=== PATIENT | female | born 1940 | race Caucasian/White ===

== ENCOUNTER 2016-11-24 14:37 | Inpatient (IN) | payer MEDICARE, MEDICAID ==
[~2016-11-24] VITALS: Ht 157.5 cm; Wt 62.6 kg
[~2016-11-24 14:37] MED LIST: ACET-2067 PO; ALEN70TA45 PO; ALLO100T PO; ASPI81TA2 PO; ATOR10TA PO; CHOL100044 PO; MIRT15TA7 PO; OMEP20CA10 PO; ONDA4TAB5 PO; QUET25TA PO; SENN8.6T6 PO; SERT25TA5 PO; VITA400C24 PO
[2016-11-24] MEDS ORDERED: IPRATROPIUM NEB FS 0.5 MG/2.5 ML AMPUL.NEB NEB ONE (15:00)
[2016-11-24] MEDS ORDERED: ALBUTEROL FS 2.5 MG/3 ML VIAL.NEB CONTNEB ONE (15:00)
[2016-11-24] MEDS ORDERED: ALBUTEROL FS 2.5 MG/3 ML VIAL.NEB ONE (15:03)
[2016-11-24] MEDS ORDERED: IPRATROPIUM NEB FS 0.5 MG/2.5 ML AMPUL.NEB ONE (15:04)
[2016-11-24 15:23] LABS: ANION GAP 14 (5-14); CALCIUM, SERUM 9.3 mg/dL (8.5-10.1); CARBON DIOXIDE 30 mmol/L (21-32); CHLORIDE 105 mmol/L (98-107); CREATININE 1.5 mg/dL (0.6-1.3); GLUCOSE 136 mg/dL (74-106); POTASSIUM 4.3 mmol/L (3.5-5.1); SODIUM SERUM 144 mmol/L (136-145); UREA NITROGEN, BLOOD 31 mg/dL (7-18)
[2016-11-24 15:26] LABS: BASOPHILS % (AUTO) 0.2 % (0.0-2.0); DIFF TOTAL % 100 %; EOSINOPHILS % (AUTO) 0.1 % (0.0-6.0); HEMATOCRIT 39 % (33-45); HEMOGLOBIN 12.9 g/dL (11.5-14.8); LYMPHOCYTES # (AUTO) 0.9 /CMM (0.8-4.8); LYMPHOCYTES % (AUTO) 10.1 % (20.0-44.0); MEAN CORPUSCULAR HEMOGLOBIN 32 PG (26.0-33.0); MEAN CORPUSCULAR HGB CONC 34 g/dl (31.0-36.0); MEAN CORPUSCULAR VOLUME 96 fL (82-100); MONOCYTES # (AUTO) 0.8 /CMM (0.1-1.30); MONOCYTES % (AUTO) 9.2 % (2.0-12.0); NEUTROPHILS # (AUTO) 7.4 /CMM (1.8-8.9); NEUTROPHILS % (AUTO) 80.4 % (43.0-81.0); PLATELET COUNT (AUTO) 211 /CMM (150-450); RED BLOOD CELL COUNT(AUTO) 4.04 MIL/uL (4.0-5.2); WHITE BLOOD COUNT (AUTO) 9.1 K/uL (4.3-11.0)
[2016-11-24 15:30] LABS: TROPONIN I < 0.017 ng/mL (0.00-0.056)
[2016-11-24 15:34] LABS: LACTIC ACID 0.7 mmol/L (0.4-2.0)
[2016-11-24 15:40] LABS: ALANINE AMINOTRANSFERASE 11 U/L (12-78); ALBUMIN 3.1 g/dL (3.4-5.0); ASPARTATE AMINOTRANSFERASE 16 U/L (15-37); BILIRUBIN,DIRECT 0.1 mg/dL (0.0-0.2); BILIRUBIN,TOTAL 0.3 mg/dL (0.2-1.0); INDIRECT BILIRUBIN 0.2 mg/dL (0.0-1.1); TOTAL PROTEIN, SERUM 6.8 g/dL (6.4-8.2)
[2016-11-24] MEDS ORDERED: IV SET PRIMARY PUMP SET 1 EA INFUS.SET MC ONE ×2 (15:59→21:12)
[2016-11-24] MEDS ORDERED: LEVOFLOXACIN 500 MG /D5W 100ML 100 ML IV ONE (15:59)
[2016-11-24] MEDS ORDERED: LEVOFLOXACIN 500 MG /D5W 100ML 500 MG/100 ML PIGGYBACK IV ONE (16:00)
[2016-11-24 18:27] VITALS: BP 163/71
[2016-11-24] MEDS ORDERED: ALBUTEROL FS 2.5 MG/3 ML VIAL.NEB NEB PRN (18:30)
[2016-11-24] MEDS ORDERED: IPRATROPIUM NEB FS 0.5 MG/2.5 ML AMPUL.NEB NEB PRN (18:30)
[2016-11-24] MEDS ORDERED: AZITHROMYCIN 500 MG in IV D5W 250 ML IV SCH ×2 (18:30→19:00)
[2016-11-24] MEDS ORDERED: ACETAMINOPHEN 325 MG TABLET PO PRN (19:00)
[2016-11-24] MEDS ORDERED: ONDANSETRON 4 MG TAB.RAPDIS PO PRN (19:30)
[2016-11-24 20:00] VITALS: BP 147/68
[2016-11-24] MEDS: ALBUTEROL FS 2.5 MG/3 ML VIAL.NEB NEB SCH (20:01)
[2016-11-24] MEDS: IPRATROPIUM NEB FS 0.5 MG/2.5 ML AMPUL.NEB NEB SCH (20:01)
[2016-11-24] MEDS: AZITHROMYCIN 500 MG in IV D5W 250 ML IV SCH (21:06)
[2016-11-24] MEDS: QUETIAPINE FUMARATE 25 MG TABLET PO SCH (21:07)
[2016-11-24] MEDS: SENNOSIDES 8.6 MG TABLET PO SCH (21:07)
[2016-11-24] MEDS: methylPREDNISolone SOD SUCC 40 MG/ML VIAL IV SCH (21:07)
[2016-11-24] MEDS: ATORVASTATIN 10 MG TABLET PO SCH (21:07)
[2016-11-25] VITALS: BP 109/61
[2016-11-25 04:00] VITALS: BP 102/59
[2016-11-25] MEDS: methylPREDNISolone SOD SUCC 40 MG/ML VIAL IV SCH ×3 (05:54→20:03)
[2016-11-25 07:09] VITALS: BP 111/62
[2016-11-25] MEDS: IPRATROPIUM NEB FS 0.5 MG/2.5 ML AMPUL.NEB NEB SCH ×4 (07:35→19:44)
[2016-11-25] MEDS: ALBUTEROL FS 2.5 MG/3 ML VIAL.NEB NEB SCH ×4 (07:52→19:44)
[2016-11-25] MEDS: CHOLECALCIFEROL 1,000 UNIT TABLET (VIT D3) PO SCH (08:03)
[2016-11-25] MEDS: VITAMIN E 400 UNIT CAPSULE PO SCH (08:03)
[2016-11-25] MEDS: ALLOPURINOL 100 MG TABLET PO SCH (08:04)
[2016-11-25] MEDS: SERTRALINE HCL 25 MG TABLET PO SCH (08:04)
[2016-11-25] MEDS: ASPIRIN 81 MG TAB.CHEW PO SCH (08:04)
[2016-11-25] MEDS: PANTOPRAZOLE 40 MG TABLET.DR PO SCH (09:13)
[2016-11-25 16:00] VITALS: BP 100/79
[2016-11-25] MEDS: MIRTAZAPINE 15 MG TABLET PO SCH (17:02)
[2016-11-25 19:00] VITALS: BP 141/97
[2016-11-25 20:00] VITALS: BP 141/97
[2016-11-25] MEDS ORDERED: IV SET PRIMARY PUMP SET 1 EA INFUS.SET MC ONE (20:03)
[2016-11-25] MEDS: AZITHROMYCIN 500 MG in IV D5W 250 ML IV SCH (20:03)
[2016-11-25] MEDS ORDERED: IV NS 0.9% 250 ML IV ONE (20:04)
[2016-11-25] MEDS ORDERED: SECONDARY IV SET 1 EA INFUS.SET MC ONE (20:04)
[2016-11-25] MEDS: SENNOSIDES 8.6 MG TABLET PO SCH (21:17)
[2016-11-25] MEDS: QUETIAPINE FUMARATE 25 MG TABLET PO SCH (21:17)
[2016-11-25] MEDS: ATORVASTATIN 10 MG TABLET PO SCH (21:17)
[2016-11-26 04:00] VITALS: BP 104/69
[2016-11-26] MEDS: methylPREDNISolone SOD SUCC 40 MG/ML VIAL IV SCH ×3 (05:00→21:26)
[2016-11-26 08:00] VITALS: BP 109/74
[2016-11-26] MEDS: ALBUTEROL FS 2.5 MG/3 ML VIAL.NEB NEB SCH ×4 (08:24→19:49)
[2016-11-26] MEDS: IPRATROPIUM NEB FS 0.5 MG/2.5 ML AMPUL.NEB NEB SCH ×4 (08:24→19:49)
[2016-11-26] MEDS: ASPIRIN 81 MG TAB.CHEW PO SCH (08:50)
[2016-11-26] MEDS: PANTOPRAZOLE 40 MG TABLET.DR PO SCH (08:50)
[2016-11-26] MEDS: ALLOPURINOL 100 MG TABLET PO SCH (08:50)
[2016-11-26] MEDS: SERTRALINE HCL 25 MG TABLET PO SCH (08:50)
[2016-11-26] MEDS: VITAMIN E 400 UNIT CAPSULE PO SCH (08:50)
[2016-11-26] MEDS: CHOLECALCIFEROL 1,000 UNIT TABLET (VIT D3) PO SCH (08:50)
[2016-11-26 12:00] VITALS: BP 110/68
[2016-11-26 16:00] VITALS: BP 110/67
[2016-11-26] MEDS: MIRTAZAPINE 15 MG TABLET PO SCH (18:56)
[2016-11-26 20:00] VITALS: BP 90/66
[2016-11-26] MEDS: AZITHROMYCIN 250 MG TABLET PO SCH (21:27)
[2016-11-26] MEDS: SENNOSIDES 8.6 MG TABLET PO SCH (21:27)
[2016-11-26] MEDS: QUETIAPINE FUMARATE 25 MG TABLET PO SCH (21:27)
[2016-11-26] MEDS: ATORVASTATIN 10 MG TABLET PO SCH (21:27)
[2016-11-27 00:24] VITALS: BP 97/68
[2016-11-27 04:17] VITALS: BP 92/63
[2016-11-27] MEDS: methylPREDNISolone SOD SUCC 40 MG/ML VIAL IV SCH ×3 (05:09→21:10)
[2016-11-27 06:57] VITALS: BP 98/68
[2016-11-27 08:00] VITALS: BP 98/68
[2016-11-27] MEDS: IPRATROPIUM NEB FS 0.5 MG/2.5 ML AMPUL.NEB NEB SCH ×4 (08:03→19:38)
[2016-11-27] MEDS: ALBUTEROL FS 2.5 MG/3 ML VIAL.NEB NEB SCH ×4 (08:03→19:38)
[2016-11-27] MEDS: PANTOPRAZOLE 40 MG TABLET.DR PO SCH (08:39)
[2016-11-27] MEDS: CHOLECALCIFEROL 1,000 UNIT TABLET (VIT D3) PO SCH (08:39)
[2016-11-27] MEDS: ASPIRIN 81 MG TAB.CHEW PO SCH (08:39)
[2016-11-27] MEDS: VITAMIN E 400 UNIT CAPSULE PO SCH (08:39)
[2016-11-27] MEDS: SERTRALINE HCL 25 MG TABLET PO SCH (08:40)
[2016-11-27] MEDS: ALLOPURINOL 100 MG TABLET PO SCH (08:40)
[2016-11-27 16:00] VITALS: BP 102/74
[2016-11-27] MEDS: MIRTAZAPINE 15 MG TABLET PO SCH (17:17)
[2016-11-27 20:00] VITALS: BP 101/77
[2016-11-27] MEDS: SENNOSIDES 8.6 MG TABLET PO SCH (21:10)
[2016-11-27] MEDS: QUETIAPINE FUMARATE 25 MG TABLET PO SCH (21:11)
[2016-11-27] MEDS: ATORVASTATIN 10 MG TABLET PO SCH (21:11)
[2016-11-27] MEDS: AZITHROMYCIN 250 MG TABLET PO SCH (21:11)
[2016-11-28] MEDS: methylPREDNISolone SOD SUCC 40 MG/ML VIAL IV SCH ×3 (05:36→20:25)
[2016-11-28 07:19] LABS: DIFF TOTAL % 100 %; HEMATOCRIT 36 % (33-45); HEMOGLOBIN 11.8 g/dL (11.5-14.8); LYMPHOCYTES # (AUTO) 1.6 /CMM (0.8-4.8); LYMPHOCYTES % (AUTO) 10.3 % (20.0-44.0); MEAN CORPUSCULAR HEMOGLOBIN 32 PG (26.0-33.0); MEAN CORPUSCULAR HGB CONC 33 g/dl (31.0-36.0); MEAN CORPUSCULAR VOLUME 96 fL (82-100); MONOCYTES # (AUTO) 0.6 /CMM (0.1-1.30); MONOCYTES % (AUTO) 3.6 % (2.0-12.0); NEUTROPHILS # (AUTO) 13.2 /CMM (1.8-8.9); NEUTROPHILS % (AUTO) 86.1 % (43.0-81.0); PLATELET COUNT (AUTO) 324 /CMM (150-450); RED BLOOD CELL COUNT(AUTO) 3.75 MIL/uL (4.0-5.2); WHITE BLOOD COUNT (AUTO) 15.3 K/uL (4.3-11.0)
[2016-11-28 07:31] LABS: ALBUMIN 2.6 g/dL (3.4-5.0); BILIRUBIN,TOTAL 0.2 mg/dL (0.2-1.0); CALCIUM, SERUM 9.2 mg/dL (8.5-10.1); CREATININE 1.5 mg/dL (0.6-1.3); POTASSIUM 4.8 mmol/L (3.5-5.1); TOTAL PROTEIN, SERUM 5.9 g/dL (6.4-8.2)
[2016-11-28] MEDS: ALBUTEROL FS 2.5 MG/3 ML VIAL.NEB NEB SCH ×4 (07:49→19:55)
[2016-11-28] MEDS: IPRATROPIUM NEB FS 0.5 MG/2.5 ML AMPUL.NEB NEB SCH ×4 (07:49→19:55)
[2016-11-28 08:00] VITALS: BP 117/77
[2016-11-28] MEDS: PANTOPRAZOLE 40 MG TABLET.DR PO SCH (08:03)
[2016-11-28] MEDS: VITAMIN E 400 UNIT CAPSULE PO SCH (08:04)
[2016-11-28] MEDS: SERTRALINE HCL 25 MG TABLET PO SCH (08:04)
[2016-11-28] MEDS: ALLOPURINOL 100 MG TABLET PO SCH (08:04)
[2016-11-28] MEDS: CHOLECALCIFEROL 1,000 UNIT TABLET (VIT D3) PO SCH (08:04)
[2016-11-28] MEDS: ASPIRIN 81 MG TAB.CHEW PO SCH (08:04)
[2016-11-28 16:00] VITALS: BP 114/77
[2016-11-28] MEDS: MIRTAZAPINE 15 MG TABLET PO SCH (17:07)
[2016-11-28 18:00] VITALS: BP 114/77
[2016-11-28 20:00] VITALS: BP 102/74
[2016-11-28] MEDS: AZITHROMYCIN 250 MG TABLET PO SCH (20:24)
[2016-11-28] MEDS: ATORVASTATIN 10 MG TABLET PO SCH (21:04)
[2016-11-28] MEDS: SENNOSIDES 8.6 MG TABLET PO SCH ×2 (21:04→22:00)
[2016-11-28] MEDS: QUETIAPINE FUMARATE 25 MG TABLET PO SCH (21:04)
[2016-11-28 22:00] VITALS: BP 102/74
[2016-11-29] MEDS: methylPREDNISolone SOD SUCC 40 MG/ML VIAL IV SCH ×2 (05:16→12:37)
[2016-11-29] MEDS: ALBUTEROL FS 2.5 MG/3 ML VIAL.NEB NEB SCH ×3 (07:24→14:53)
[2016-11-29] MEDS: IPRATROPIUM NEB FS 0.5 MG/2.5 ML AMPUL.NEB NEB SCH ×3 (07:24→14:53)
[2016-11-29 08:00] VITALS: BP 113/93
[2016-11-29] MEDS: ASPIRIN 81 MG TAB.CHEW PO SCH (08:29)
[2016-11-29] MEDS: CHOLECALCIFEROL 1,000 UNIT TABLET (VIT D3) PO SCH (08:29)
[2016-11-29] MEDS: VITAMIN E 400 UNIT CAPSULE PO SCH (08:29)
[2016-11-29] MEDS: SERTRALINE HCL 25 MG TABLET PO SCH (08:29)
[2016-11-29] MEDS: ALLOPURINOL 100 MG TABLET PO SCH (08:29)
[2016-11-29] MEDS: PANTOPRAZOLE 40 MG TABLET.DR PO SCH (08:29)
[2016-11-29 16:00] VITALS: BP 97/76
[2016-11-29] MEDS: MIRTAZAPINE 15 MG TABLET PO SCH (17:23)
[2016-11-30] MEDS ORDERED: ALENDRONATE 70 MG TABLET PO SCH (19:00)
== END 2016-11-29 19:15 | DRG 193 ==
LOC: ER 14:41 → TELE 17:05 → MED 11-27 08:53
PROVIDERS: ADMIT Internal Medicine; ATTEND Internal Medicine
DX: J18.9 Pneumonia, unspecified organism (principal); G93.40 Encephalopathy, unspecified; J96.90 Respiratory failure, unspecified, unspecified whether with hypoxia or hypercapnia; J44.1 Chronic obstructive pulmonary disease with (acute) exacerbation; R64 Cachexia; E78.5 Hyperlipidemia, unspecified; K21.9 Gastro-esophageal reflux disease without esophagitis; G30.9 Alzheimer's disease, unspecified; F02.80 Dementia in other diseases classified elsewhere, unspecified severity, without behavioral disturbance, psychotic disturbance, mood disturbance, and anxiety; I12.9 Hypertensive chronic kidney disease with stage 1 through stage 4 chronic kidney disease, or unspecified chronic kidney disease; N18.3 Chronic kidney disease, stage 3 (moderate); I25.10 Atherosclerotic heart disease of native coronary artery without angina pectoris; M81.0 Age-related osteoporosis without current pathological fracture; F32.9 Major depressive disorder, single episode, unspecified; Z87.891 Personal history of nicotine dependence; J20.9 Acute bronchitis, unspecified; F29 Unspecified psychosis not due to a substance or known physiological condition; E79.0 Hyperuricemia without signs of inflammatory arthritis and tophaceous disease
CPT/HCPCS: 36415; 71010-TC; 80048-TC; 80053-TC; 80076-TC; 83605-TC; 83880; 84484-TC; 85025-TC; 87040-TC; 87081-TC; 94799-TC; A4606; J0456; J1956; J2920; J7050; J7060; Z7610

== ENCOUNTER 2017-01-23 02:11 | Inpatient (IN) | payer MEDICARE, MEDICAID ==
[2017-01-23] VITALS (25 sets, daily range): BP systolic 89–166; BP diastolic 61–93
[~2017-01-23] VITALS: Ht 165.1 cm; Wt 69.9 kg
--- NOTE | 2017-01-23 02:15 | NUR ---
PT BIB RA AND TAKEN TO ROOM #2. PT IS AA&O X4. PT ARRIVED ON NRB MASK AT 15L. PT CAME FROM [facility]. PT IS ON THE MONITOR AND CONTINUOUS PULSE OX. DR. BERNSTEIN AT THE BEDSIDE.
[2017-01-23] MEDS ORDERED: ALBUTEROL FS 2.5 MG/3 ML VIAL.NEB CONTNEB ONE (02:30)
[2017-01-23] MEDS ORDERED: DEXAMETHASONE SOD PHOSPHATE 10 MG/ML VIAL IV ONE (02:30)
[2017-01-23] MEDS ORDERED: IPRATROPIUM NEB FS 0.5 MG/2.5 ML AMPUL.NEB NEB ONE (02:30)
[2017-01-23] MEDS ORDERED: LEVOFLOXACIN 750 MG /D5W 150ML 150 ML IV ONE ×2 (02:30→02:31)
[2017-01-23] MEDS ORDERED: DEXAMETHASONE SOD PHOSPHATE 10 MG/ML VIAL ONE (02:31)
[2017-01-23] MEDS ORDERED: IV SET PRIMARY PUMP SET 1 EA INFUS.SET MC ONE ×2 (02:31→05:26)
--- NOTE | 2017-01-23 02:39 | NUR ---
PT IS ON BIPAP WITH THE FOLLOWING SETTINGS: 15/5, RT 14, FIO2 30%
[2017-01-23 02:46] LABS: BASOPHILS % (AUTO) 0.1 % (0.0-2.0); EOSINOPHILS # (AUTO) 0.3 /CMM (0.0-0.7); EOSINOPHILS % (AUTO) 2.1 % (0.0-6.0); HEMATOCRIT 36 % (33-45); HEMOGLOBIN 11.6 g/dL (11.5-14.8); LYMPHOCYTES # (AUTO) 1.4 /CMM (0.8-4.8); MEAN CORPUSCULAR HEMOGLOBIN 31 PG (26.0-33.0); MEAN CORPUSCULAR HGB CONC 32 g/dl (31.0-36.0); MEAN CORPUSCULAR VOLUME 97 fL (82-100); MONOCYTES # (AUTO) 0.5 /CMM (0.1-1.30); MONOCYTES % (AUTO) 3.3 % (2.0-12.0); NEUTROPHILS # (AUTO) 13.8 /CMM (1.8-8.9); NEUTROPHILS % (AUTO) 85.5 % (43.0-81.0); PLATELET COUNT (AUTO) 222 /CMM (150-450); RDW COEFFICIENT OF VARIATION 13.6 (11.5-15.0); RED BLOOD CELL COUNT(AUTO) 3.73 MIL/uL (4.0-5.2); WHITE BLOOD COUNT (AUTO) 16.2 K/uL (4.3-11.0)
[2017-01-23 02:48] LABS: ABG BASE EXCESS 0.7 mmol/L; ABG OXYGEN SATURATION 93.9 % (92.0-98.5); ABG PCO2 39.7 mmHg (35.0-45.0); ABG PH 7.419 (7.350-7.450); ABG TOTAL HEMOGLOBIN 12.4 G/dL (12.0-16.0); COHb 0.5 % (0.5-1.5); MetHb 0.6 % (0.0-1.5); O2Hb 92.9 % (94.0-97.0); SITE, ABG Left Radial; VENT MODE, BG BIPAP 15/5 BR 14 30%
[2017-01-23 02:55] LABS: CALCIUM, SERUM 8.6 mg/dL (8.5-10.1); CREATININE 1.5 mg/dL (0.6-1.3); POTASSIUM 4.4 mmol/L (3.5-5.1)
[2017-01-23 03:03] LABS: INR 0.94 (0.87-1.13)
[2017-01-23 03:04] LABS: LACTIC ACID 1.4 mmol/L (0.4-2.0)
[2017-01-23] MEDS ORDERED: ALBUTEROL FS 2.5 MG/3 ML VIAL.NEB ONE (03:09)
[2017-01-23] MEDS ORDERED: IPRATROPIUM NEB FS 0.5 MG/2.5 ML AMPUL.NEB ONE (03:10)
[2017-01-23] MEDS ORDERED: VANCOMYCIN 1 GM in IV D5W 250 ML IV ONE ×2 (03:30→06:00)
[2017-01-23] MEDS ORDERED: MEROPENEM 1,000 MG in IV NS 0.9% 100 ML IV ONE (03:30)
--- NOTE | 2017-01-23 03:32 | NUR ---
ORDERS REC'D FROM DR. NORMAN.
--- NOTE | 2017-01-23 03:35 | NUR ---
PT PLACE ON BIPAP. PT IS AWAKE AND ALERT. BIPAP IS PLUGGED IN RED OUTLET, ALARMS ARE SET AND AUDIBLE WILL CONTINUE TO MONITOR Addendum: 01/23/17 at 0342 by NAMAN SPIVEY RT Amended: Links added.
--- NOTE | 2017-01-23 03:42 | NUR ---
PT APPEARS TO BE RESTING COMFORTABLY.
--- NOTE | 2017-01-23 03:42 | NUR ---
CALLING REPORT TO ICU NURSE. ENDORSING VANCO 1 GRAM AND MEROPENEM 1000MG TO BE GIVEN AFTER THE LEVOQUIN IS FINISHED INFUSING.
[2017-01-23] MEDS ORDERED: DEXTROSE 50%-WATER 50 ML DISP.SYRIN IV PRN (04:30)
[2017-01-23] MEDS ORDERED: IV NS 0.9% 1,000 ML BAG IV SCH (04:30)
--- NOTE | 2017-01-23 04:34 | NUR ---
EKG NOT DONE. EKG WAS CANCELLED.
[2017-01-23] MEDS ORDERED: ALBUTEROL FS 2.5 MG/0.5 ML VIAL.NEB NEB PRN (05:00)
[2017-01-23] MEDS ORDERED: VANCOMYCIN 1 GM VIAL ONE (05:25)
[2017-01-23] MEDS ORDERED: IV D5W 250 ML IV ONE (05:25)
[2017-01-23] MEDS ORDERED: SECONDARY IV SET 1 EA INFUS.SET MC ONE (05:26)
[2017-01-23] MEDS ORDERED: IV NS 0.9% 1,000 ML ONE (05:26)
--- NOTE | 2017-01-23 05:48 | NUR ---
ASSISTANT PARALEGAL. RECEIVED THE PT FROM ER VIA [facility]. PT AWAKE, ALERT, FOLLOW COMMANDS. . INFANT LEAD TEACHER SHOWING NSR. BIPAP ON SETTINGS 15/5, RATE 14, FIO2 30%. SAT 98%. NO ACUTE DISTRESS NOTED. IV RT AND LT HAND. 20G. IVF NS 60 ML/H. HOPB ELEVATED. TURN AND REPOSITION Q2H. WILL CONTINUE TO MONITOR VITALS.
--- NOTE | 2017-01-23 05:51 | NUR ---
STAIN MAKER. BIPAP OFF. OXYGEN 4L VIA NASAL CANNULA. SAT 97%. WILL CONTINUE TO MONITOR.
[2017-01-23] MEDS ORDERED: VANCOMYCIN 1 GM in IV D5W 250 ML IV SCH (06:00)
[2017-01-23] MEDS ORDERED: ENOXAPARIN SODIUM 30 MG/0.3 ML DISP.SYRIN SQ SCH ×2 (06:00→09:00)
[2017-01-23] MEDS ORDERED: ENOXAPARIN SODIUM 30 MG/0.3 ML DISP.SYRIN ONE (06:19)
[2017-01-23] MEDS: ALBUTEROL FS 2.5 MG/0.5 ML VIAL.NEB NEB SCH ×5 (07:22→23:30)
[2017-01-23] MEDS: IPRATROPIUM NEB FS 0.5 MG/2.5 ML AMPUL.NEB NEB SCH ×4 (07:22→20:06)
[2017-01-23] MEDS ORDERED: BLOOD SUGAR DIAGNOSTIC 1 EACH STRIP IN SCH (07:30)
--- NOTE | 2017-01-23 07:41 | NUR ---
WEIGHT LOSS CENTRE MANAGER NOTE: RECEIVED PATIENT ALERT AND ORIENTED X4, ON 4L O2 VIA NC. NO RESPIRATORY DISTRESS NOTED. SR ON TELE MONITOR. PIV'S PATENT AND INTACT RUNNING IVF ORDERED. PATIENT ABLE TO MAKE NEEDS KNOWN, DIAPER CHANGED, PATIENT KEPT CLEAN AND DRY. EXTREMITIES OFFLOADED. PATIENT MADE COMFORTABLE. ALL NEEDS MET. SAFETY MEASURES OBSERVED. BED LOW AND LOCKED, CALL LIGHT WITHIN REACH. ONGOING MONITORING
[2017-01-23 08:14] LABS: HEMATOCRIT 35 % (33-45); HEMOGLOBIN 11.2 g/dL (11.5-14.8); LYMPHOCYTES % (AUTO) 5.4 % (20.0-44.0); MEAN CORPUSCULAR HEMOGLOBIN 31 PG (26.0-33.0); MEAN CORPUSCULAR HGB CONC 32 g/dl (31.0-36.0); MEAN CORPUSCULAR VOLUME 97 fL (82-100); MONOCYTES # (AUTO) 0.2 /CMM (0.1-1.30); NEUTROPHILS # (AUTO) 17.3 /CMM (1.8-8.9); NEUTROPHILS % (AUTO) 93.6 % (43.0-81.0); PLATELET COUNT (AUTO) 208 /CMM (150-450); RDW COEFFICIENT OF VARIATION 13.5 (11.5-15.0); RED BLOOD CELL COUNT(AUTO) 3.58 MIL/uL (4.0-5.2); WHITE BLOOD COUNT (AUTO) 18.5 K/uL (4.3-11.0)
[2017-01-23] MEDS: methylPREDNISolone SOD SUCC 40 MG/ML VIAL IV SCH ×3 (08:17→18:10)
[2017-01-23] MEDS: PANTOPRAZOLE 40 MG VIAL IV SCH (08:17)
[2017-01-23] MEDS: BLOOD SUGAR DIAGNOSTIC 1 EACH STRIP IN SCH ×4 (08:17→22:09)
[2017-01-23] MEDS: AZITHROMYCIN 500 MG in IV D5W 250 ML IV SCH (08:17)
[2017-01-23 08:56] LABS: CALCIUM, SERUM 8.8 mg/dL (8.5-10.1); CREATININE 1.7 mg/dL (0.6-1.3); POTASSIUM 4.6 mmol/L (3.5-5.1)
[2017-01-23] MEDS ORDERED: MEROPENEM 1 G in IV NS 0.9% 100 ML IV ONE (09:00)
[2017-01-23] MEDS ORDERED: ONDANSETRON 4 MG TAB.RAPDIS PO PRN (09:30)
[2017-01-23] MEDS: ALLOPURINOL 100 MG TABLET PO SCH (09:34)
[2017-01-23] MEDS: CHOLECALCIFEROL 1,000 UNIT TABLET (VIT D3) PO SCH (09:34)
[2017-01-23] MEDS: SERTRALINE HCL 25 MG TABLET PO SCH (09:34)
[2017-01-23] MEDS: ASPIRIN 81 MG TAB.CHEW PO SCH (09:35)
[2017-01-23] MEDS: VITAMIN E 400 UNIT CAPSULE PO SCH (10:45)
[2017-01-23] MEDS ORDERED: IV NS 0.9% 1,000 ML BAG IV PRN (11:00)
[2017-01-23] MEDS: ACETAMINOPHEN 325 MG TABLET PO PRN (11:18)
[2017-01-23] MEDS: MIRTAZAPINE 15 MG TABLET PO SCH (18:10)
--- NOTE | 2017-01-23 18:35 | NUR ---
GEOSPATIAL IMAGE ANALYST NOTE: PATIENT RESTING COMFORTABLY IN BED ALERT AND ORIENTED X3 ON 4L 02 VIA NC, NO DISTRESS NOTED SPO2 MAINTAINED >90%. SR ON MONITOR. PATIENT TURNED AND REPOSITIONED, EXTREMITIES OFFLOADED. SAFETY MEASURES OBSERVED. ALL NEEDS MET, ALL MEDICATIONS ADMINISTERED ORDERED. VSS, WILL ENDORSE FOR CONTINUITY OF CARE
[2017-01-23] MEDS: IV NS 0.9% 1,000 ML IV PRN (19:50)
[2017-01-23] MEDS: SENNOSIDES 8.6 MG TABLET PO SCH (22:00)
--- NOTE | 2017-01-23 22:05 | NUR ---
PR SPECIALIST BLOOD GLUCOSE 132; PT DECLINES INSULIN. CONTINUE TO MONITOR.
[2017-01-23] MEDS: ATORVASTATIN 10 MG TABLET PO SCH (22:09)
[2017-01-23] MEDS: QUETIAPINE FUMARATE 25 MG TABLET PO SCH (22:09)
[2017-01-24] VITALS (21 sets, daily range): BP systolic 107–189; BP diastolic 48–122
[2017-01-24] MEDS: IV NS 0.9% 1,000 ML IV PRN ×2 (00:35→17:14)
[2017-01-24] MEDS: ALBUTEROL FS 2.5 MG/0.5 ML VIAL.NEB NEB SCH ×6 (03:30→23:18)
--- NOTE | 2017-01-24 06:00 | NUR ---
TRAY CHECKER PT NOTED TO BE AGITATED STATING SHE CAN NOT BREATHE; WHEEZING AUDIBLE. PT ON O2 2L NC. PT PLACED ON 15L NRB BY RT. CONTINUE TO MONITOR.
[2017-01-24] MEDS: BLOOD SUGAR DIAGNOSTIC 1 EACH STRIP IN SCH ×4 (08:01→21:27)
[2017-01-24] MEDS: methylPREDNISolone SOD SUCC 40 MG/ML VIAL IV SCH ×3 (08:02→17:04)
[2017-01-24] MEDS: PANTOPRAZOLE 40 MG VIAL IV SCH (08:03)
[2017-01-24] MEDS: CHOLECALCIFEROL 1,000 UNIT TABLET (VIT D3) PO SCH (08:03)
[2017-01-24] MEDS: SERTRALINE HCL 25 MG TABLET PO SCH (08:03)
[2017-01-24] MEDS: ALLOPURINOL 100 MG TABLET PO SCH (08:03)
[2017-01-24] MEDS: ASPIRIN 81 MG TAB.CHEW PO SCH (08:03)
[2017-01-24] MEDS: ENOXAPARIN SODIUM 30 MG/0.3 ML DISP.SYRIN SQ SCH (08:04)
[2017-01-24] MEDS: INSULIN ASPART NOVOLOG 100 UNIT/ML CARTRIDGE SQ PRN ×3 (08:07→17:05)
[2017-01-24] MEDS: AZITHROMYCIN 500 MG in IV D5W 250 ML IV SCH (08:11)
[2017-01-24] MEDS: VITAMIN E 400 UNIT CAPSULE PO SCH (08:11)
[2017-01-24] MEDS: IPRATROPIUM NEB FS 0.5 MG/2.5 ML AMPUL.NEB NEB SCH ×4 (08:12→21:22)
--- NOTE | 2017-01-24 09:25 | NUR ---
SAMPLES AND REPAIRS PREPARER NOTE 0720: Received patient awake, noted with agitation at this time, on NRB mask for verbalizing hard to breathe per previous shift, will titrate. Plaxed on 4LPM of O2 via NC and will monitor. WIth PIVs intact. ST 110's on the monitor. 0800: Noted patient with anxiety O2 sat 87%, SBP 180's, encouraged to do DBCT exercises, still not remaining calm, about to be placed on Bipap but patient refused, placed on 6LPM of O2 via NC, and patient becoming calm. Given Solumedrol and breathing treatments. 0830: Patient verbalizing feeling better. O2 sat 95% on 4LPM of O2 via NC. 0900: S/E by Dr. Craig, made aware for the episode of agitation and respiratory distress, obtained order for Xanax, carried out. Patient calm at this time, O2 sat 94% on 4LPM of O2 via NC. Kept HOB elevated.
[2017-01-24] MEDS ORDERED: ALPRAZOLAM 0.25 MG TABLET PO PRN (09:30)
--- NOTE | 2017-01-24 15:40 | NUR ---
DR. NORMAN AT BEDSIDE EVALUATING PT. UPDATED MD ON PT'S PROGRESS. NEW VERBAL ORDERS RECEIVED FOR THE FOLLOWIN) OK TO DOWNGRADE PT TO [facility], 2) PT EVAL AND 3) D/C XANAX, ORDER HALDOL 5 MG Q6H PRN ANXIETY. ORDERS PLACED. WILL CONTINUE TO MONITOR.
[2017-01-24] MEDS ORDERED: HALOPERIDOL 5 MG TABLET PO PRN ×2 (16:00→22:00)
[2017-01-24] MEDS ORDERED: AMLODIPINE BESYLATE 10 MG TABLET PO SCH (17:00)
[2017-01-24] MEDS ORDERED: hydrALAZINE HCL 25 MG TABLET PO SCH (17:00)
[2017-01-24] MEDS: MIRTAZAPINE 15 MG TABLET PO SCH (17:05)
--- NOTE | 2017-01-24 19:45 | NUR ---
CATCHER PLUG : TRANSFER TO [facility]. REPORT GIVEN TO ELI MOHAN. PT TRANSFERRED VIA ACLS PROTOCOL. ALL BELONGINGS SENT WITH PT INCLUDING CELLPHONE AND CELL PHONE RESTAURANT SERVICE MANAGER. PT ON 4L NC. PT HAS NO SOB OR SIGNS OF RESP DISTRESS . IV INTACT AND PATENT.
--- NOTE | 2017-01-24 19:49 | NUR ---
RN NOTES RECEIVED REPORT FROM MIKALA FROM ER, PT WILL BE TRANSFER TO [facility] FOR CONTINUATION OF CARE, PT IS CURRENTLY ON RA, AND TOLERATING IT WELL, NO SOB OR DYSPNEA AT THIS MOMENT, WAITING FOR PT ARRIVAL
--- NOTE | 2017-01-24 20:15 | NUR ---
MARQUES INITIAL NOTES RECEIVED PT IN A GURNEY, ALERT ORIENTED X3, NO S/SX OF ANY ACUTE DISTRESS NOTED, PT C/O SOB, ELEVATED THE HOB, ON NASAL CANNULA 2L, SATURATING 95%, ORIENTED THE PT IN THE ROOM, PROVIDE SAFETY, WILL CONTINUE TO MONITOR. BODY CHECKED DONE, SKIN CLEAN AND INTACT, IV SITES CDI, PATENT AND FLUSHED, SIDERAILS UP, BED LOCKED AND IN THE LOWEST POSITION, CALL LIGHTS WITHIN REACH. Addendum: 01/25/17 at 0342 by ELI LAROSE RN LOWER EXTREMITIES, MILD WEAKNESS BOTH LEGS, PAIN IN RIB AREA, PAIN MEDICATION GIVEN ORDERED Addendum: 01/25/17 at 0343 by ELI LAROSE RN IGNORE PRIOR AMEND - WRONG PATIENT
[2017-01-24] MEDS: ACETAMINOPHEN 325 MG TABLET PO PRN (20:37)
[2017-01-24] MEDS ORDERED: CARVEDILOL 12.5 MG TABLET PO SCH (21:00)
[2017-01-24] MEDS: QUETIAPINE FUMARATE 25 MG TABLET PO SCH (21:24)
[2017-01-24] MEDS: SENNOSIDES 8.6 MG TABLET PO SCH (21:24)
[2017-01-24] MEDS: ATORVASTATIN 10 MG TABLET PO SCH (21:24)
[2017-01-25] VITALS (7 sets, daily range): BP systolic 104–125; BP diastolic 67–81
[2017-01-25] MEDS: ALBUTEROL FS 2.5 MG/0.5 ML VIAL.NEB NEB SCH ×6 (03:30→23:25)
[2017-01-25] MEDS: BLOOD SUGAR DIAGNOSTIC 1 EACH STRIP IN SCH ×4 (06:46→21:07)
--- NOTE | 2017-01-25 07:02 | NUR ---
TALENT PARTNER CLOSING NOTES NO SIGNIFICANT CHANGE OF CONDITION OVERNIGHT. ON O2, 2LPM NASAL CANNULA, SATURATING 98%, PRODUCTIVE COUGH, AND WHEEZING ON R LUNG. RT PROVIDE TREATMENT AND HELPED PT BREATH, NON LABORED. HAD EPISODES LAST NIGHT, ALLEVIATED BY PROVIDING COMFORT AND SAFETY, PT ENCOURAGE OF SELF CARE, ASSISTED PT TO BATHROOM, STEADY GAIT. ALL MEDS GIVEN AND TOLERATED IT WELL, ALL SAFETY MEASURES MAINTAINED, CALL LIGHT WITHIN REACH. WILL ENDORSE TO AM NURSE FOR CONTINUATION OF CARE.
[2017-01-25] MEDS: IPRATROPIUM NEB FS 0.5 MG/2.5 ML AMPUL.NEB NEB SCH ×4 (07:27→20:04)
[2017-01-25] MEDS ORDERED: ALENDRONATE 70 MG TABLET PO SCH (07:30)
--- NOTE | 2017-01-25 07:30 | NUR ---
OIL WELL SERVICE OPERATOR HELPER RECEIVED PT IN BED AWAKE ALERT FOLLOWS COMMANDS, PT IS RESTLESS SHE STATES CANT BREATH, PT IS ON O2 NC 2L SATURATION 95%, TEACH PT DEEP BREATHING TECHNIQUES RELAXATION TECHNIQUES, STARTED PT ON BREATHING TREATMENTS, PT DENIES OF ANY PAIN AT THIS TIME, TURN AND REPOSITION CALL LIGHT W/ IN REACH BED ALARM ON FALL PRECAUTIONS TAKEN WILL CONTINUE TO MONITOR.
[2017-01-25] MEDS ORDERED: IV SET PRIMARY PUMP SET 1 EA INFUS.SET MC ONE (08:13)
[2017-01-25] MEDS: ASPIRIN 81 MG TAB.CHEW PO SCH (08:14)
[2017-01-25] MEDS: AZITHROMYCIN 500 MG in IV D5W 250 ML IV SCH (08:14)
[2017-01-25] MEDS: VITAMIN E 400 UNIT CAPSULE PO SCH (08:14)
[2017-01-25] MEDS: PANTOPRAZOLE 40 MG VIAL IV SCH (08:14)
[2017-01-25] MEDS: SERTRALINE HCL 25 MG TABLET PO SCH (08:15)
[2017-01-25] MEDS: CHOLECALCIFEROL 1,000 UNIT TABLET (VIT D3) PO SCH (08:15)
[2017-01-25] MEDS: ALLOPURINOL 100 MG TABLET PO SCH (08:15)
[2017-01-25] MEDS: methylPREDNISolone SOD SUCC 40 MG/ML VIAL IV SCH ×3 (08:15→17:41)
[2017-01-25] MEDS: ENOXAPARIN SODIUM 30 MG/0.3 ML DISP.SYRIN SQ SCH (08:26)
--- NOTE | 2017-01-25 11:34 | NUR ---
ADVENTURE CHALLENGE INSTRUCTOR PT BS 68 GAVE 1 CUP ORANGE JUICE AND 1 CUB APPLE JUICE AWAITING FOR LUNCH FOR LUNCH TRAYS TO BE PASSED.
[2017-01-25] MEDS: MIRTAZAPINE 15 MG TABLET PO SCH (17:41)
[2017-01-25] MEDS: INSULIN ASPART NOVOLOG 100 UNIT/ML CARTRIDGE SQ PRN ×2 (17:44→21:19)
--- NOTE | 2017-01-25 18:11 | NUR ---
LABORER SHELLFISH PROCESSING PT IN BED NO CHANGE IN PT CONDITION LOOKS MUCH BETTER FROM MORNING NO MAJOR CHANGES IN PT CONDITION FROM BEGINNING OF SHIFT, PT IS LESS RESTLESS ALL PT NEEDS MEET PT SAFETY MEET STILL ON BREATHING TREATMENT AND O2 NC 2L, WILL GIVE REPORT TO PM NURSE FOR CONTINUITY OF CARE.
--- NOTE | 2017-01-25 20:00 | NUR ---
RN [facility] - NOTES - RECEIVED PT IN BED SLEEPING ON O2 NC 2L SATURATION 96%, NO S/S OF RESP DISTRESS, PT GIVEN BREATHING TREATMENTS, PT DENIES OF ANY PAIN AT THIS TIME, TURN AND REPOSITION CALL LIGHT W/ IN REACH BED ALARM ON FALL PRECAUTIONS TAKEN WILL CONTINUE TO MONITOR.
[2017-01-25] MEDS: SENNOSIDES 8.6 MG TABLET PO SCH (21:06)
[2017-01-25] MEDS: QUETIAPINE FUMARATE 25 MG TABLET PO SCH (21:06)
[2017-01-25] MEDS: ATORVASTATIN 10 MG TABLET PO SCH (21:07)
[2017-01-26] VITALS: BP 113/78
[2017-01-26 04:00] VITALS: BP 110/79
[2017-01-26] MEDS: ALBUTEROL FS 2.5 MG/0.5 ML VIAL.NEB NEB SCH ×5 (04:02→20:14)
--- NOTE | 2017-01-26 07:20 | NUR ---
RN INITIAL NOTES PT IN BED, A/O X4, STATES SHE HAS SLIGHT BACK PAIN, APPLIED AND ADJUSTED HER PILLOWS AND SHE STATES SHE FEELS MUCH BETTER. HOB ELEVATED 35 DEGREES, ON NC 2L, TOLERATING WELL, NO SOB. ON TELE MONITOR WITH SR 89, DENIES CHEST PAIN. SKIN IS CDI, NO OPEN WOUNDS, JUST GENERALIZED BRUISES. IV ON RFA 20G, CDI, SALINE FLUSHED, NO SIGNS OF INFECTION/INFILTRATION. CALL LIGHT WITHIN EASY REACH, SAFETY MEASURES MAINTAINED, WILL CONTINUE TO MONITOR AND FOLLOW MD ORDERS. PT IN OVERALL STABLE CONDITION.
--- NOTE | 2017-01-26 07:40 | NUR ---
RN NOTES PT COMPLAINING OF DISCOMFORT, STATING THAT IT'S SLIGHTLY DIFFICULT TO BREATH, RT TIMOTHY TO START BREATHING TREATMENT.
[2017-01-26] MEDS: IPRATROPIUM NEB FS 0.5 MG/2.5 ML AMPUL.NEB NEB SCH ×4 (07:42→20:14)
[2017-01-26 08:00] VITALS: BP 141/93
[2017-01-26] MEDS: BLOOD SUGAR DIAGNOSTIC 1 EACH STRIP IN SCH ×4 (08:13→21:35)
[2017-01-26] MEDS: methylPREDNISolone SOD SUCC 40 MG/ML VIAL IV SCH ×3 (08:29→17:04)
[2017-01-26] MEDS: SERTRALINE HCL 25 MG TABLET PO SCH (08:29)
[2017-01-26] MEDS: ASPIRIN 81 MG TAB.CHEW PO SCH (08:29)
[2017-01-26] MEDS: VITAMIN E 400 UNIT CAPSULE PO SCH (08:29)
[2017-01-26] MEDS: AZITHROMYCIN 500 MG in IV D5W 250 ML IV SCH (08:29)
[2017-01-26] MEDS: ALLOPURINOL 100 MG TABLET PO SCH (08:29)
[2017-01-26] MEDS: CHOLECALCIFEROL 1,000 UNIT TABLET (VIT D3) PO SCH (08:29)
[2017-01-26] MEDS: PANTOPRAZOLE 40 MG VIAL IV SCH (08:29)
[2017-01-26] MEDS: ENOXAPARIN SODIUM 30 MG/0.3 ML DISP.SYRIN SQ SCH (08:30)
[2017-01-26 12:00] VITALS: BP 114/81
--- NOTE | 2017-01-26 15:25 | NUR ---
RN NOTES PT SEEN BY RAJESH REP. PER DR. NORMAN FOR POSSIBLE PLACEMENT IN [place].
[2017-01-26 16:00] VITALS: BP 113/59
[2017-01-26] MEDS: MIRTAZAPINE 15 MG TABLET PO SCH (17:04)
--- NOTE | 2017-01-26 18:08 | NUR ---
RN NOTES PT STATES SHE VOID "A LOT TODAY LIKE 15 PLUS". WHEN DIAPERS ARE CHANGED, THEY FEEL VERY HEAVY.
--- NOTE | 2017-01-26 19:03 | NUR ---
RN CLOSING NOTES PT IN STABLE CONDITION, TOLERATING NC 2L WELL, NO SOB, DENIES PAIN, IV CDI, NO SIGNS OF INFECTION/INFILTRATION, NIGHT NURSE TO CONTINUE TO MONITOR IV SITE FOR POSSIBLE INFILTRATION. CALL LIGHT WITHIN EASY REACH, SAFETY MEASURES MAINTAINED, REPORT GIVEN FOR KASIA.
[2017-01-26 20:00] VITALS: BP 123/82
[2017-01-26] MEDS: QUETIAPINE FUMARATE 25 MG TABLET PO SCH (21:34)
[2017-01-26] MEDS: ATORVASTATIN 10 MG TABLET PO SCH (21:34)
[2017-01-26] MEDS: INSULIN ASPART NOVOLOG 100 UNIT/ML CARTRIDGE SQ PRN (21:37)
[2017-01-26] MEDS: SENNOSIDES 8.6 MG TABLET PO SCH (21:38)
[2017-01-27] VITALS: BP 113/74
[2017-01-27] MEDS: IPRATROPIUM NEB FS 0.5 MG/2.5 ML AMPUL.NEB NEB PRN ×2 (00:03→22:49)
[2017-01-27] MEDS: ALBUTEROL FS 2.5 MG/0.5 ML VIAL.NEB NEB SCH ×7 (00:03→22:49)
[2017-01-27 04:00] VITALS: BP 139/98
[2017-01-27] MEDS: BLOOD SUGAR DIAGNOSTIC 1 EACH STRIP IN SCH ×4 (06:34→21:14)
[2017-01-27] MEDS: IPRATROPIUM NEB FS 0.5 MG/2.5 ML AMPUL.NEB NEB SCH ×4 (07:35→20:13)
[2017-01-27 08:00] VITALS: BP 113/78
[2017-01-27] MEDS ORDERED: IV SET PRIMARY PUMP SET 1 EA INFUS.SET MC ONE (08:31)
[2017-01-27] MEDS: PANTOPRAZOLE 40 MG VIAL IV SCH (08:45)
[2017-01-27] MEDS: methylPREDNISolone SOD SUCC 40 MG/ML VIAL IV SCH ×2 (08:46→16:12)
[2017-01-27] MEDS: ASPIRIN 81 MG TAB.CHEW PO SCH (08:48)
[2017-01-27] MEDS: CHOLECALCIFEROL 1,000 UNIT TABLET (VIT D3) PO SCH (08:48)
[2017-01-27] MEDS: AZITHROMYCIN 500 MG in IV D5W 250 ML IV SCH (08:48)
[2017-01-27] MEDS: VITAMIN E 400 UNIT CAPSULE PO SCH (08:48)
[2017-01-27] MEDS: ALLOPURINOL 100 MG TABLET PO SCH (08:49)
[2017-01-27] MEDS: SERTRALINE HCL 25 MG TABLET PO SCH (08:49)
[2017-01-27] MEDS: ENOXAPARIN SODIUM 30 MG/0.3 ML DISP.SYRIN SQ SCH (08:49)
[2017-01-27] MEDS ORDERED: Z GUARD REMEDY 2 OZ OINT TP PRN (11:30)
[2017-01-27 12:00] VITALS: BP 161/90
[2017-01-27] MEDS: ACETAMINOPHEN 325 MG TABLET PO PRN (14:08)
[2017-01-27 16:00] VITALS: BP 151/82
[2017-01-27] MEDS: MENTHOL/CETYLPYRD (CEPACOL) 1 LOZ LOZENGE PO PRN ×3 (16:12→21:18)
--- NOTE | 2017-01-27 16:25 | NUR ---
RN NOTE NOTIFIED DR NORMAN ABOUT PT CO OF PAIN AND SPIKED BP, AND LABS, BUT NO NEW ORDERS AT THIS TIME. WILL CONTINUE TO MONITOR.
[2017-01-27] MEDS: MIRTAZAPINE 15 MG TABLET PO SCH (18:23)
[2017-01-27] MEDS: INSULIN ASPART NOVOLOG 100 UNIT/ML CARTRIDGE SQ PRN (18:29)
[2017-01-27 20:00] VITALS: BP 150/80
[2017-01-27] MEDS: SENNOSIDES 8.6 MG TABLET PO SCH (21:11)
[2017-01-27] MEDS: QUETIAPINE FUMARATE 25 MG TABLET PO SCH (21:16)
[2017-01-27] MEDS: ATORVASTATIN 10 MG TABLET PO SCH (21:16)
[2017-01-28] VITALS: BP 109/75
[2017-01-28 00:11] VITALS: BP 109/75
[2017-01-28 04:00] VITALS: BP 136/88
[2017-01-28] MEDS: IPRATROPIUM NEB FS 0.5 MG/2.5 ML AMPUL.NEB NEB PRN (04:10)
[2017-01-28] MEDS: ALBUTEROL FS 2.5 MG/0.5 ML VIAL.NEB NEB SCH ×4 (04:10→15:30)
[2017-01-28] MEDS: BLOOD SUGAR DIAGNOSTIC 1 EACH STRIP IN SCH ×2 (06:30→11:42)
--- NOTE | 2017-01-28 07:30 | NUR ---
RN OPENING NOTES" RECEIVED PT ON BED ALOX3, ON O2 VIA NC AT 2LPM TOLERATED WELL NOT IN APPARENT DISTRESS. TELEMETRY READS SR HR 71, DENIES ANY PAIN AT THIS TIME. IV ACCESS ON EDDIE G20 FLUSHES WELL, SITE CLEAR. INTACT SKIN, AMBULATES TO BR. NO ADDED SALT DIET. SAFETY MEASURES ENSURED. CALL LIGHT WITHIN REACH. BED LOW LOCKED. WILL MONITOR ACCORDINGLY.
[2017-01-28] MEDS: IPRATROPIUM NEB FS 0.5 MG/2.5 ML AMPUL.NEB NEB SCH ×3 (07:35→15:30)
[2017-01-28 08:00] VITALS: BP 113/82
[2017-01-28] MEDS: ASPIRIN 81 MG TAB.CHEW PO SCH (08:57)
[2017-01-28] MEDS: methylPREDNISolone SOD SUCC 40 MG/ML VIAL IV SCH (08:57)
[2017-01-28] MEDS: SERTRALINE HCL 25 MG TABLET PO SCH (08:57)
[2017-01-28] MEDS: PANTOPRAZOLE 40 MG VIAL IV SCH (08:57)
[2017-01-28] MEDS: VITAMIN E 400 UNIT CAPSULE PO SCH (08:57)
[2017-01-28] MEDS: CHOLECALCIFEROL 1,000 UNIT TABLET (VIT D3) PO SCH (08:57)
[2017-01-28] MEDS: ALLOPURINOL 100 MG TABLET PO SCH (08:58)
[2017-01-28] MEDS: MENTHOL/CETYLPYRD (CEPACOL) 1 LOZ LOZENGE PO PRN ×2 (08:59→15:48)
[2017-01-28] MEDS ORDERED: AZITHROMYCIN 250 MG TABLET PO SCH (09:00)
[2017-01-28] MEDS: ENOXAPARIN SODIUM 30 MG/0.3 ML DISP.SYRIN SQ SCH (09:00)
--- NOTE | 2017-01-28 09:30 | NUR ---
RN NOTES ADMINISTERED DUE MEDS.
--- NOTE | 2017-01-28 11:42 | NUR ---
RN NOTES ACCUCHECK DONE. BS 88 MG/DL. NO INSULIN COVERAGE GIVEN.
[2017-01-28 12:00] VITALS: BP 120/78
--- NOTE | 2017-01-28 14:45 | NUR ---
RN NOTES REPORT GIVEN TO GEREMIAS AT FACILITY. CORK COMPOUNDER TIME BY AMBULANCE IS 1600.
--- NOTE | 2017-01-28 14:49 | NUR ---
RN NOTES PATIENT TO BE DISCHARGED TO [facility] PER MD IN STABLE CONDITION. PROVIDED DC INSTRUCTIONS, MED RECON LIST AND HEALTH TEACHINGS. PATIENT TO FOLLOW UP WITH PC PIN [id number]. ALL BELONGINGS CHECKED AND RETURNED. ALL PAPER WORKS SIGNED. REPORT CALLED TO GEREMIAS AT RECEIVING FACILITY. DEPALLETIZER OPERATOR TIME 1600.
[2017-01-28] MEDS ORDERED: predniSONE 20 MG TABLET PO SCH (16:00)
[2017-01-28 16:11] VITALS: BP 118/78
--- NOTE | 2017-01-28 16:11 | NUR ---
RN NOTES PATIENT PICKED UP BY AMBULANCE. RT FA 20G IV ACCESS REMOVED, CATHETER TIP COMPLETE. NO BLEEDING, DRESSING IN PLACE. REPORT/ENDORSED TO AMBULANCE CREW.
[2017-01-28] MEDS ORDERED: FLUTICASONE/SALMETEROL DISKUS IH SCH (17:00)
== END 2017-01-28 16:11 | DRG 189 ==
LOC: ER 02:14 → ICU 03:47 → TELE-TD 01-24 19:55 → TELE1 01-26 11:21
PROVIDERS: ADMIT Internal Medicine; ATTEND Internal Medicine
PROC: 5A09357 Assistance with Respiratory Ventilation, Less than 24 Consecutive Hours, Continuous Positive Airway Pressure (ICD-10-PCS; principal; 2017-01-23)
DX: J96.91 Respiratory failure, unspecified with hypoxia (principal); G93.40 Encephalopathy, unspecified; J44.1 Chronic obstructive pulmonary disease with (acute) exacerbation; N18.4 Chronic kidney disease, stage 4 (severe); N17.9 Acute kidney failure, unspecified; J06.9 Acute upper respiratory infection, unspecified; I12.9 Hypertensive chronic kidney disease with stage 1 through stage 4 chronic kidney disease, or unspecified chronic kidney disease; M81.0 Age-related osteoporosis without current pathological fracture; K21.9 Gastro-esophageal reflux disease without esophagitis; E78.5 Hyperlipidemia, unspecified; F02.80 Dementia in other diseases classified elsewhere, unspecified severity, without behavioral disturbance, psychotic disturbance, mood disturbance, and anxiety; G30.9 Alzheimer's disease, unspecified; E79.0 Hyperuricemia without signs of inflammatory arthritis and tophaceous disease; Z87.891 Personal history of nicotine dependence; I25.10 Atherosclerotic heart disease of native coronary artery without angina pectoris; E55.9 Vitamin D deficiency, unspecified; Z79.899 Other long term (current) drug therapy; Z79.83 Long term (current) use of bisphosphonates; Z79.82 Long term (current) use of aspirin; E86.0 Dehydration; F41.9 Anxiety disorder, unspecified; J98.01 Acute bronchospasm; T38.0X5A Adverse effect of glucocorticoids and synthetic analogues, initial encounter; Z99.81 Dependence on supplemental oxygen
CPT/HCPCS: 36415; 36600; 70220-TC; 71010-TC; 80048-TC; 82962-TC; 83605-TC; 83880; 84484-TC; 84550-TC; 85025-TC; 85610-TC; 87040-TC; 87081-TC; 87400; 94762-TC; 94799-TC; 97001-TC; 97110-TC; 97116-TC; 97530-TC; 99082-TC; A4606; A6253; A6402; A6403; C9113; J0456; J1100; J1650; J1815; J1956; J2185; J2920; J3370; J7030; J7060; Z7610

== ENCOUNTER 2017-02-10 16:23 | Inpatient (IN) | payer MEDICARE, MEDICAID ==
[~2017-02-10] VITALS: Ht 167.6 cm; Wt 68.5 kg
[~2017-02-10 16:23] MED LIST changes: -OMEP20CA10 PO
[2017-02-10] MEDS ORDERED: MIRT15TA PO (16:48)
[2017-02-10] MEDS ORDERED: LEVO750T21 PO (16:48)
[2017-02-10] MEDS ORDERED: CEFT2VIA13 IM (16:48)
[2017-02-10] MEDS ORDERED: ALEN70TA3 GT (16:48)
[2017-02-10] MEDS ORDERED: ALBU2.5V13 IH ×2 (16:48)
[2017-02-10] MEDS ORDERED: BENZ1LOZ58 MM (16:48)
[2017-02-10] MEDS ORDERED: PRED20TA PO (16:48)
[2017-02-10] MEDS ORDERED: IPRA0.2S9 IH ×2 (16:48)
--- NOTE | 2017-02-10 17:05 | NUR ---
CLINICAL CONSULTANT AT BEDSIDE
--- NOTE | 2017-02-10 17:15 | NUR ---
IV ESTABLISHED LAC 18G
[2017-02-10 17:16] LABS: BASOPHILS # (AUTO) 0.1 /CMM (0.0-0.2); BASOPHILS % (AUTO) 1.2 % (0.0-2.0); EOSINOPHILS % (AUTO) 0.2 % (0.0-6.0); HEMATOCRIT 36 % (33-45); HEMOGLOBIN 11.8 g/dL (11.5-14.8); LYMPHOCYTES # (AUTO) 0.9 /CMM (0.8-4.8); LYMPHOCYTES % (AUTO) 7.5 % (20.0-44.0); MEAN CORPUSCULAR HEMOGLOBIN 31 PG (26.0-33.0); MEAN CORPUSCULAR HGB CONC 32 g/dl (31.0-36.0); MEAN CORPUSCULAR VOLUME 95 fL (82-100); MONOCYTES # (AUTO) 0.3 /CMM (0.1-1.30); MONOCYTES % (AUTO) 2.4 % (2.0-12.0); NEUTROPHILS # (AUTO) 10.9 /CMM (1.8-8.9); NEUTROPHILS % (AUTO) 88.7 % (43.0-81.0); PLATELET COUNT (AUTO) 264 /CMM (150-450); RDW COEFFICIENT OF VARIATION 12.7 (11.5-15.0); RED BLOOD CELL COUNT(AUTO) 3.81 MIL/uL (4.0-5.2); WHITE BLOOD COUNT (AUTO) 12.2 K/uL (4.3-11.0)
[2017-02-10 17:26] LABS: CALCIUM, SERUM 9.2 mg/dL (8.5-10.1); CREATININE 1.6 mg/dL (0.6-1.3); POTASSIUM 4.7 mmol/L (3.5-5.1)
[2017-02-10 17:30] LABS: INR 0.96 (0.87-1.13)
[2017-02-10 17:30] LABS: ABG BASE EXCESS 3.1 mmol/L; ABG OXYGEN SATURATION 96.1 % (92.0-98.5); ABG PCO2 47.8 mmHg (35.0-45.0); ABG PH 7.396 (7.350-7.450); ABG PO2 91.5 mmHg (75.0-100.0); ABG TOTAL HEMOGLOBIN 12.3 G/dL (12.0-16.0); AaDO2 80.7 mmHg; COHb 0.8 % (0.5-1.5); MetHb 0.6 % (0.0-1.5); O2Hb 94.8 % (94.0-97.0); SITE, ABG Right Radial; VENT MODE, BG 3 LPM VIA N/C
[2017-02-10 17:32] LABS: ALBUMIN 2.7 g/dL (3.4-5.0); BILIRUBIN,DIRECT 0.1 mg/dL (0.0-0.2); BILIRUBIN,TOTAL 0.3 mg/dL (0.2-1.0); TOTAL PROTEIN, SERUM 6.5 g/dL (6.4-8.2)
[2017-02-10 17:34] LABS: TROPONIN I 0.398 ng/mL (0.00-0.056)
[2017-02-10 17:40] LABS: LACTIC ACID 0.7 mmol/L (0.4-2.0)
--- NOTE | 2017-02-10 17:40 | NUR ---
CALLED NURSING SUP. FOR TELE BED
--- NOTE | 2017-02-10 17:40 | NUR ---
CALLED, LEFT MESSAGE ON VOICEMAIL
[2017-02-10] MEDS ORDERED: LEVOFLOXACIN 500 MG /D5W 100ML 100 ML IV ONE (17:47)
[2017-02-10] MEDS ORDERED: IV SET PRIMARY PUMP SET 1 EA INFUS.SET MC ONE (17:47)
--- NOTE | 2017-02-10 17:59 | NUR ---
IV ABX INITIATED PER ORDER. NAD NOTED. VSS. ALL NEEDS ATTENDED TO.
[2017-02-10] MEDS ORDERED: LEVOFLOXACIN 500 MG /D5W 100ML 500 MG/100 ML PIGGYBACK IV ONE (18:00)
--- NOTE | 2017-02-10 18:03 | NUR ---
PT NOW REPORTS THAT SHE HAS BEEN HAVING CP THAT WORSENS WHEN SHE COUGHS AND STOPS HER FROM TAKING DEEP BREATHS. Addendum: 02/10/17 at 1806 by HFOX NOTIFIED
--- NOTE | 2017-02-10 18:13 | NUR ---
REPORT GIVEN TO MORRIS MOHAN FOR ADMISSION
--- NOTE | 2017-02-10 18:20 | NUR ---
CALLED RT FOR BREATHING TREATMENT
[2017-02-10] MEDS ORDERED: ASPIRIN 81 MG TAB.CHEW ONE (18:22)
[2017-02-10] MEDS ORDERED: NITROGLYCERIN PACKET 1 GM PACKET ONE (18:22)
[2017-02-10] MEDS ORDERED: IPRATROPIUM NEB FS 0.5 MG/2.5 ML AMPUL.NEB ONE (18:23)
[2017-02-10] MEDS ORDERED: ALBUTEROL FS 2.5 MG/3 ML VIAL.NEB ONE (18:23)
[2017-02-10] MEDS ORDERED: IPRATROPIUM NEB FS 0.5 MG/2.5 ML AMPUL.NEB NEB ONE (18:30)
[2017-02-10] MEDS ORDERED: NITROGLYCERIN PACKET 1 GM PACKET TOP ONE (18:30)
[2017-02-10] MEDS ORDERED: ASPIRIN 81 MG TAB.CHEW PO ONE (18:30)
[2017-02-10] MEDS ORDERED: ALBUTEROL FS 2.5 MG/3 ML VIAL.NEB NEB ONE (18:30)
--- NOTE | 2017-02-10 18:50 | NUR ---
CALLED NURSING SUP. TO UPGRADE BED TO [facility]
--- NOTE | 2017-02-10 18:56 | NUR ---
PT WILL BE GOING TO [facility] 115-1
--- NOTE | 2017-02-10 19:26 | NUR ---
DENIES CP CURRENTLY. NAD NOTED.
--- NOTE | 2017-02-10 19:45 | NUR ---
REPORT GIVEN TO GIA MOHAN FOR ADMISSION. ROOM IS NOW 108 [facility]. NAD NOTED. VSS. ALL NEEDS ATTENDED TO. LINE AND DIAPER CHANGE OFFERED; PT REFUSES AT THIS TIME.
--- NOTE | 2017-02-10 19:55 | NUR ---
PT TRANSPORTED TO [facility] RM 108 IN STABLE CONDITION VIA ACLS PROTOCOL
[2017-02-10 20:00] VITALS: BP 101/63
[2017-02-10 20:21] VITALS: BP 101/63
[2017-02-10] MEDS ORDERED: ACETAMINOPHEN 325 MG TABLET PO PRN (21:00)
[2017-02-10] MEDS ORDERED: DEXTROSE 50%-WATER 50 ML DISP.SYRIN IV PRN (21:00)
--- NOTE | 2017-02-10 21:16 | NUR ---
EMULSIFICATION OPERATOR: ADMISSION ORDERS RECEOVED FROM DR ESTER HAIRSTON VIA PHONE, PT WILL BE ADMITTED IN [facility], DX COPD EXACERBATION, POSSIBLE ACUTE OK AND RESPIRATORY FAILURE. MED RECONCILIATION DONE. RECEIVED PT FROM ER AT 1999, PT IS AAO X 3, HAS HX OF DEMENTIA, FALL RISK PROTOCOL INITIATED. PT NOT IN ACUTE DISTRESS, HAS SOB WITH EXERTION,. ON 2 L NC SATURATING 90%, PT C/O PAIN 4/10 SAID ITS CHRONIC PAIN RELIEVES WITH TYLENOL. ALL ADMISSION ASSESSMENT DONE. SKIN CHECKED WITH IKER/JOSÉ MIGUEL, HAS REDNESS IN SACRUM AREA DUE TO INCONTINENCE, GENERALIZED BODY BRUISES, PICTURES TAKEN. SKIN PROTECTION MEASURE IMPLEMENTED. ON BUILDING COMPONENTS DESIGNER SINUS RHYTHM WITH TALL PEAK T-WAVE, ,MD AWARE. POSITIVE TROPONIN, NEXT WILL BE DRAWN AT [address] NORMAN ORDERS. ONGOING MONITORING...
[2017-02-10] MEDS: MIRTAZAPINE 15 MG TABLET PO SCH (21:29)
[2017-02-10] MEDS: SENNOSIDES 8.6 MG TABLET PO SCH (21:29)
[2017-02-10] MEDS: QUETIAPINE FUMARATE 25 MG TABLET PO SCH (21:29)
[2017-02-10] MEDS: ATORVASTATIN 10 MG TABLET PO SCH (21:29)
[2017-02-10] MEDS: methylPREDNISolone SOD SUCC 40 MG/ML VIAL IV SCH (21:29)
[2017-02-10] MEDS: BLOOD SUGAR DIAGNOSTIC 1 EACH STRIP IN SCH (21:30)
[2017-02-11] VITALS: BP 134/62
[2017-02-11 04:00] VITALS: BP_SYST 148; BP_SYST 168; BP_DIAS 66; BP_DIAS 82
[2017-02-11] MEDS: methylPREDNISolone SOD SUCC 40 MG/ML VIAL IV SCH ×3 (05:26→21:33)
[2017-02-11 06:27] LABS: BASOPHILS % (AUTO) 0.1 % (0.0-2.0); HEMATOCRIT 34 % (33-45); HEMOGLOBIN 11.2 g/dL (11.5-14.8); LYMPHOCYTES # (AUTO) 0.8 /CMM (0.8-4.8); LYMPHOCYTES % (AUTO) 11.8 % (20.0-44.0); MEAN CORPUSCULAR HEMOGLOBIN 31 PG (26.0-33.0); MEAN CORPUSCULAR HGB CONC 33 g/dl (31.0-36.0); MEAN CORPUSCULAR VOLUME 96 fL (82-100); MONOCYTES # (AUTO) 0.1 /CMM (0.1-1.30); MONOCYTES % (AUTO) 1.9 % (2.0-12.0); NEUTROPHILS # (AUTO) 5.7 /CMM (1.8-8.9); NEUTROPHILS % (AUTO) 86.2 % (43.0-81.0); PLATELET COUNT (AUTO) 249 /CMM (150-450); RDW COEFFICIENT OF VARIATION 13.6 (11.5-15.0); RED BLOOD CELL COUNT(AUTO) 3.59 MIL/uL (4.0-5.2); WHITE BLOOD COUNT (AUTO) 6.6 K/uL (4.3-11.0)
[2017-02-11 06:52] LABS: CALCIUM, SERUM 8.9 mg/dL (8.5-10.1); CREATININE 1.7 mg/dL (0.6-1.3); POTASSIUM 4.8 mmol/L (3.5-5.1)
[2017-02-11] MEDS: BLOOD SUGAR DIAGNOSTIC 1 EACH STRIP IN SCH ×4 (07:30→21:33)
[2017-02-11 08:00] VITALS: BP 113/60
[2017-02-11] MEDS: VITAMIN E 400 UNIT CAPSULE PO SCH (08:48)
[2017-02-11] MEDS: PANTOPRAZOLE 40 MG TABLET.DR PO SCH (08:48)
[2017-02-11] MEDS: SERTRALINE HCL 25 MG TABLET PO SCH (08:49)
[2017-02-11] MEDS: CHOLECALCIFEROL 1,000 UNIT TABLET (VIT D3) PO SCH (08:49)
[2017-02-11] MEDS: ALLOPURINOL 100 MG TABLET PO SCH (08:49)
[2017-02-11] MEDS: ASPIRIN 81 MG TAB.CHEW PO SCH (08:49)
[2017-02-11 12:00] VITALS: BP 126/80
--- NOTE | 2017-02-11 14:00 | NUR ---
FAMILY AT BEDSIDE, ASSISTED WITH COMMUNICATION WITH DR NORMAN, WHO UPDATED PT AND THE FAMILY ON PROGRESS.
[2017-02-11] MEDS: IPRATROPIUM NEB FS 0.5 MG/2.5 ML AMPUL.NEB IH PRN ×2 (14:17→20:31)
[2017-02-11] MEDS: ALBUTEROL FS 2.5 MG/0.5 ML VIAL.NEB IH PRN ×2 (14:17→20:31)
[2017-02-11] MEDS: METOPROLOL SUCCINATE 25 MG TAB.SR.24H PO SCH (14:20)
[2017-02-11 16:00] VITALS: BP 114/73
--- NOTE | 2017-02-11 18:00 | NUR ---
PT AMBULATED WITH WALKER IN THE HALLWAY, ABLE TO WALK STRONG WITH MODERATE SPEED, DENIES SOB ON EXERTION, VSS, DENIED CHEST PAIN. PT WISHED TO REMAIN IN THE CHAIR FOR DINNER.
--- NOTE | 2017-02-11 19:40 | NUR ---
SHIPPING SERVICES SALES REPRESENTATIVE INITIAL NOTES: RECEIVED REPORT FROM TORI MOHAN, PT IN BED, AWAKE, A/O X3 ON 2L VIA NC, RESPIRATION EVEN AND UNLABORED, PT DENIES ANY PAIN OR DISCOMFORT AT THIS TIME, LEFT AC IV ACCESS PATENT AND FLUSHING WELL, ON HL. PT ABLE TO AMBULATE WITH WALKER, PT ON SINUS RHYTHM HR 78. SAFETY PRECAUTIONS FOR FALL INITIATED CALL LIGHT IN REACH, WILL CONTINUE TO MONITOR
[2017-02-11 20:00] VITALS: BP 101/70
[2017-02-11] MEDS: ATORVASTATIN 10 MG TABLET PO SCH (21:33)
[2017-02-11] MEDS: SENNOSIDES 8.6 MG TABLET PO SCH (21:34)
[2017-02-11] MEDS: MIRTAZAPINE 15 MG TABLET PO SCH (21:35)
[2017-02-11] MEDS: *INSULIN ASPART NOVOLOG 100 UNIT/ML CARTRIDGE SQ PRN (21:44)
--- NOTE | 2017-02-11 21:44 | NUR ---
MS MOHAN NOTES: CHECKED BLOOD SUGAR AND REVEAL 134, PT REFUSED FOR INSULIN HUMALOG STATED SHE DOESN'T WANT IT AT THIS TIME, SHE ALSO STATED SHE'S NOT A DIABETIC PT, EDUCATE PT REGARDING IMPORTANCE OF MEDICATION COMPLIANCE, Addendum: 02/11/17 at 6497 by AMY RAYMUNDO RN CORRECTION: TELE NOTES NOT MS MURCIA
[2017-02-11] MEDS: QUETIAPINE FUMARATE 25 MG TABLET PO SCH (23:06)
[2017-02-12] VITALS: BP 140/67
[2017-02-12 04:00] VITALS: BP 105/62
[2017-02-12] MEDS: methylPREDNISolone SOD SUCC 40 MG/ML VIAL IV SCH ×3 (04:30→20:18)
[2017-02-12] MEDS: INSULIN ASPART NOVOLOG 100 UNIT/ML CARTRIDGE SQ PRN (06:16)
[2017-02-12] MEDS: BLOOD SUGAR DIAGNOSTIC 1 EACH STRIP IN SCH ×4 (06:16→21:40)
--- NOTE | 2017-02-12 06:17 | NUR ---
ASSISTANT CASINO SHIFT MANAGER NOTES: CHECKED BLOOD SUGAR AND REVEAL 112, NO INSULIN GIVEN PER SLIDING SCALE
--- NOTE | 2017-02-12 06:49 | NUR ---
APPLIANCE TESTER CLOSING NOTES: PT IN BED, AWAKE, REMAINS A/O X3 ON 2L VIA NC, NO SOB NOTED, DENIES ANY PAIN OR DISCOMFORT. REMAINS ON SINUS RHYTHM HR 64. LEFT AC IV ACCESS REMAINS PATENT AND FLUSHING WELL, ON HL. VS REMAINS STABLE, NEEDS ATTENDED. BED BRAKES REMAINS ENGAGED, CALL LIGHT IN REACH, SUCTION SET UP SECURED, WILL ENDORSE TO DAY RN FOR KASIA.
--- NOTE | 2017-02-12 07:15 | NUR ---
RN INITIAL NOTE PT RECEIVED IN BED, AWAKE AND ALERT. ABLE TO MAKE NEEDS KNOWN. NO S/S OF PAIN OR DISCOMFORT. PT DENIES PAIN AT THIS TIME. SINUS RHYTHM ON TELE MONITOR. RESPIRATIONS ARE EVEN AND UNLABORED. SATING WELL ON 2L NASAL CANULA. NO S/S OF RESPIRATORY DISTRESS OR SOB. LEFT A/C IV SITE FLUSHED, PATENT. DRESSING C/D/I. SKIN IS WARM AND DRY TO TOUCH. SAFETY PRECAUTIONS IMPLEMENTED, BED IN LOW, LOCKED POSITION. TWO SIDE RAILS UP. CALL LIGHT AND BELONGINGS WITHIN EASY REACH. WILL CONTINUE TO MONITOR.
[2017-02-12 08:00] VITALS: BP 120/65
[2017-02-12] MEDS: ASPIRIN 81 MG TAB.CHEW PO SCH (08:13)
[2017-02-12] MEDS: CHOLECALCIFEROL 1,000 UNIT TABLET (VIT D3) PO SCH (08:13)
[2017-02-12] MEDS: SERTRALINE HCL 25 MG TABLET PO SCH (08:13)
[2017-02-12] MEDS: ALLOPURINOL 100 MG TABLET PO SCH (08:13)
[2017-02-12] MEDS: PANTOPRAZOLE 40 MG TABLET.DR PO SCH (08:13)
[2017-02-12] MEDS: VITAMIN E 400 UNIT CAPSULE PO SCH (08:13)
[2017-02-12 12:00] VITALS: BP 111/76
[2017-02-12] MEDS ORDERED: BISACODYL (5 MG) 5 MG TABLET.DR PO PRN (12:30)
[2017-02-12] MEDS: METOPROLOL SUCCINATE 25 MG TAB.SR.24H PO SCH (13:09)
[2017-02-12] MEDS ORDERED: MENTHOL/CETYLPYRD (CEPACOL) 1 LOZ LOZENGE PO PRN (13:30)
[2017-02-12 16:00] VITALS: BP 123/86
[2017-02-12] MEDS: SENNOSIDES 8.6 MG TABLET PO SCH (18:03)
--- NOTE | 2017-02-12 19:00 | NUR ---
RN CLOSING NOTE ALL MD ORDERS CARRIED OUT. PT KEPT CLEAN AND DRY. SAFETY PRECAUTIONS IN PLACE AT ALL TIMES. WILL GIVE REPORT TO PM RN FOR KASIA.
--- NOTE | 2017-02-12 19:30 | NUR ---
PARCEL POST WEIGHER OPENING NOTES: PATIENT IN BED, AOX3, ON O2 AT 2 LPM VIA NC. BREATHING EVEN AND UNLABORED, NO WHEEZING AUSCULTATED AT THIS TIME, PATIENT ONLY COMPLAINING OF SORE THROAT. PIV OVER LAC G 18, INTACT AND PATENT TO FLUSH. PROVIDED FOR COMFORT AND SAFETY. BED IN LOWEST AND LOCKED POSITION, SIDERAILS UP X3. WILL CONT TO MONITOR.
[2017-02-12 20:00] VITALS: BP 117/68
[2017-02-12] MEDS: ATORVASTATIN 10 MG TABLET PO SCH (21:41)
[2017-02-12] MEDS: MIRTAZAPINE 15 MG TABLET PO SCH (21:41)
[2017-02-12] MEDS: QUETIAPINE FUMARATE 25 MG TABLET PO SCH (21:41)
--- NOTE | 2017-02-12 21:50 | NUR ---
RN NOTES: PATIENT REFUSED ACCUCHECK AT THIS TIME, SAYING THAT HER FINGERS HURT, AND THAT SHE DOES NOT HAVE DIABETES. EXPLAINED TO PATIENT PURPOSE OF MONITORING BLOOD SUGAR FOR HER STEROID THERAPY, AND RISKS OF NOT DOING MONITORING, PATIENT STILL REFUSED AT THIS TIME. WILL CONT TO MONITOR.
[2017-02-13] VITALS (8 sets, daily range): BP systolic 105–166; BP diastolic 64–87
[2017-02-13] MEDS: methylPREDNISolone SOD SUCC 40 MG/ML VIAL IV SCH ×3 (05:07→21:41)
--- NOTE | 2017-02-13 05:43 | NUR ---
RN NOTES: PATIENT COMPLAINED OF PAIN WHEN IV SITE WAS FLUSHED. NOTED REDNESS OVER IV SITE. REINSERTED NEW IV SITE OVER LEFT WRIST G22.
--- NOTE | 2017-02-13 06:30 | NUR ---
WASTE/MATERIALS EXCHANGE SPECIALIST CLOSING NOTES: PATIENT IN BED, AOX3, ON O2 AT 2 LPM VIA NC, BREATHING EVEN AND UNLABORED. PIV OVER L WRIST G22 INTACT AND PATENT TO FLUSH. BLOOD SUGAR CHECKED AT 96 MG/DL. PROVIDED FOR COMFORT AND SAFETY. DUE MEDS GIVEN. MORNING CARE RENDERED. NO ACUTE CHANGE IN CONDITION NOTED THROUGH SHIFT. WILL ENDORSE TO AM RN FOR KASIA.
[2017-02-13 08:40] LABS: EOSINOPHILS % (AUTO) 0.1 % (0.0-6.0); HEMATOCRIT 38 % (33-45); HEMOGLOBIN 12.1 g/dL (11.5-14.8); LYMPHOCYTES # (AUTO) 0.9 /CMM (0.8-4.8); LYMPHOCYTES % (AUTO) 8.1 % (20.0-44.0); MEAN CORPUSCULAR HEMOGLOBIN 31 PG (26.0-33.0); MEAN CORPUSCULAR HGB CONC 32 g/dl (31.0-36.0); MEAN CORPUSCULAR VOLUME 95 fL (82-100); MONOCYTES % (AUTO) 0.4 % (2.0-12.0); NEUTROPHILS % (AUTO) 91.4 % (43.0-81.0); PLATELET COUNT (AUTO) 282 /CMM (150-450); RDW COEFFICIENT OF VARIATION 13.5 (11.5-15.0); RED BLOOD CELL COUNT(AUTO) 3.95 MIL/uL (4.0-5.2); WHITE BLOOD COUNT (AUTO) 10.9 K/uL (4.3-11.0)
[2017-02-13] MEDS: BLOOD SUGAR DIAGNOSTIC 1 EACH STRIP IN SCH ×4 (08:44→21:48)
[2017-02-13] MEDS: ASPIRIN 81 MG TAB.CHEW PO SCH (08:44)
[2017-02-13] MEDS: SENNOSIDES 8.6 MG TABLET PO SCH ×2 (08:45→16:55)
[2017-02-13] MEDS: VITAMIN E 400 UNIT CAPSULE PO SCH (08:45)
[2017-02-13] MEDS: ALLOPURINOL 100 MG TABLET PO SCH (08:45)
[2017-02-13] MEDS: SERTRALINE HCL 25 MG TABLET PO SCH (08:45)
[2017-02-13] MEDS: CHOLECALCIFEROL 1,000 UNIT TABLET (VIT D3) PO SCH (08:45)
[2017-02-13] MEDS: PANTOPRAZOLE 40 MG TABLET.DR PO SCH (08:45)
[2017-02-13 08:50] LABS: CALCIUM, SERUM 8.9 mg/dL (8.5-10.1); CREATININE 1.4 mg/dL (0.6-1.3)
[2017-02-13 08:55] LABS: ALBUMIN 2.6 g/dL (3.4-5.0); BILIRUBIN,TOTAL 0.2 mg/dL (0.2-1.0); MAGNESIUM 1.7 mg/dL (1.8-2.4); PHOSPHORUS 4.5 mg/dL (2.5-4.9); TOTAL PROTEIN, SERUM 6.3 g/dL (6.4-8.2)
[2017-02-13] MEDS ORDERED: IV SET PRIMARY PUMP SET 1 EA INFUS.SET MC ONE (10:21)
[2017-02-13] MEDS: Magnesium 1GM/D5W 100ML PREMIX 100 ML IV SCH ×2 (10:25→11:26)
[2017-02-13] MEDS: INSULIN ASPART NOVOLOG 100 UNIT/ML CARTRIDGE SQ PRN (12:19)
[2017-02-13] MEDS: METOPROLOL SUCCINATE 25 MG TAB.SR.24H PO SCH (12:33)
--- NOTE | 2017-02-13 18:43 | NUR ---
RN NOTE PT SITTING UP IN CHAIR, AWAKE AND ALERT ORIENTED TO NAME AND PLACE WITH EPISODES OF FORGETFULNESS. ABLE TO MAKE NEEDS KNOWN. ON O2@2LPM VIA NC EDE WELL. NO S/S OF PAIN OR DISCOMFORT. PT DENIES PAIN AT THIS TIME. SINUS RHYTHM ON TELE MONITOR. RESPIRATIONS ARE EVEN AND UNLABORED. NO S/S OF RESPIRATORY DISTRESS OR SOB. LEFT A/C IV SITE FLUSHED, PATENT. DRESSING C/D/I. SKIN IS WARM AND DRY TO TOUCH. SAFETY PRECAUTIONS IMPLEMENTED, BED IN LOW, LOCKED POSITION. TWO SIDE RAILS UP. CALL LIGHT AND BELONGINGS WITHIN EASY REACH. WILL CONTINUE TO MONITOR. Addendum: 02/13/17 at 1844 by SAMARA ARNOLD RN RN NOTE PT SITTING UP IN CHAIR, AWAKE AND ALERT ORIENTED TO NAME AND PLACE WITH EPISODES OF FORGETFULNESS. ABLE TO MAKE NEEDS KNOWN. ON O2@2LPM VIA [employer] WELL. NO S/S OF PAIN OR DISCOMFORT. PT DENIES PAIN AT THIS TIME. SINUS RHYTHM ON TELE MONITOR. RESPIRATIONS ARE EVEN AND UNLABORED. NO S/S OF RESPIRATORY DISTRESS OR SOB. LEFT WRIST IV SITE FLUSHED, PATENT. DRESSING C/D/I. SKIN IS WARM AND DRY TO TOUCH. SAFETY PRECAUTIONS IMPLEMENTED, BED IN LOW, LOCKED POSITION. TWO SIDE RAILS UP. CALL LIGHT AND BELONGINGS WITHIN EASY REACH. WILL CONTINUE TO MONITOR.
[2017-02-13] MEDS: ATORVASTATIN 10 MG TABLET PO SCH (21:41)
[2017-02-13] MEDS: MIRTAZAPINE 15 MG TABLET PO SCH (21:42)
[2017-02-13] MEDS: QUETIAPINE FUMARATE 25 MG TABLET PO SCH (21:42)
[2017-02-13] MEDS: *INSULIN ASPART NOVOLOG 100 UNIT/ML CARTRIDGE SQ PRN (21:54)
[2017-02-14] VITALS (7 sets, daily range): BP systolic 117–129; BP diastolic 72–88
[2017-02-14] MEDS: methylPREDNISolone SOD SUCC 40 MG/ML VIAL IV SCH ×2 (05:37→12:15)
[2017-02-14] MEDS: BLOOD SUGAR DIAGNOSTIC 1 EACH STRIP IN SCH ×3 (05:44→17:30)
--- NOTE | 2017-02-14 06:48 | NUR ---
pt sleeping well overnight,denies any pain ,no sob, no wheezing, slight dry cough but refused lozenges saying it doesn't work. continue with oxygen, assisted to bathroom, no bm. vss,afebrile.all needs attended
[2017-02-14] MEDS: PANTOPRAZOLE 40 MG TABLET.DR PO SCH (09:31)
[2017-02-14] MEDS: CHOLECALCIFEROL 1,000 UNIT TABLET (VIT D3) PO SCH (09:32)
[2017-02-14] MEDS: SERTRALINE HCL 25 MG TABLET PO SCH (09:32)
[2017-02-14] MEDS: ASPIRIN 81 MG TAB.CHEW PO SCH (09:32)
[2017-02-14] MEDS: VITAMIN E 400 UNIT CAPSULE PO SCH (09:32)
[2017-02-14] MEDS: SENNOSIDES 8.6 MG TABLET PO SCH ×2 (09:32→17:41)
[2017-02-14] MEDS: ALLOPURINOL 100 MG TABLET PO SCH (09:32)
[2017-02-14] MEDS: METOPROLOL SUCCINATE 25 MG TAB.SR.24H PO SCH (12:23)
--- NOTE | 2017-02-14 19:05 | NUR ---
RN NOTES [facility], IN STABLE CONDITION, VIA AMBULANCE, ID BAND REMOVED, IV REMOVED, EXIT CARE PROVIDED ,DISCHARGE INSTRUCTIONS GIVEN TO AMBULANCE AND PT, VS STABLE. BELONGINGS LIST SIGNED, BELONGINGS PROVIDED TO PT.
[2017-02-15] MEDS ORDERED: ALENDRONATE 70 MG TABLET PO SCH (07:30)
== END 2017-02-14 19:05 | DRG 280 ==
LOC: ER 16:25 → TELE 18:18 → TELE-TD 20:01 → TELE1 02-11 08:43 → MEDSG1 02-14
PROVIDERS: ADMIT Internal Medicine; ATTEND Internal Medicine
DX: I21.4 Non-ST elevation (NSTEMI) myocardial infarction (principal); G93.40 Encephalopathy, unspecified; J96.90 Respiratory failure, unspecified, unspecified whether with hypoxia or hypercapnia; J44.1 Chronic obstructive pulmonary disease with (acute) exacerbation; N18.4 Chronic kidney disease, stage 4 (severe); J98.11 Atelectasis; I12.9 Hypertensive chronic kidney disease with stage 1 through stage 4 chronic kidney disease, or unspecified chronic kidney disease; K21.9 Gastro-esophageal reflux disease without esophagitis; F02.80 Dementia in other diseases classified elsewhere, unspecified severity, without behavioral disturbance, psychotic disturbance, mood disturbance, and anxiety; G30.9 Alzheimer's disease, unspecified; E79.0 Hyperuricemia without signs of inflammatory arthritis and tophaceous disease; Z99.81 Dependence on supplemental oxygen; Z88.0 Allergy status to penicillin; Z87.891 Personal history of nicotine dependence; I25.10 Atherosclerotic heart disease of native coronary artery without angina pectoris; Z79.899 Other long term (current) drug therapy; Z79.82 Long term (current) use of aspirin; I35.0 Nonrheumatic aortic (valve) stenosis; E78.5 Hyperlipidemia, unspecified; I70.0 Atherosclerosis of aorta; M19.90 Unspecified osteoarthritis, unspecified site
CPT/HCPCS: 36415; 36600; 71010-TC; 80048-TC; 80053-TC; 80076-TC; 82728-TC; 82962-TC; 83540-TC; 83605-TC; 83735-TC; 84100-TC; 84484-TC; 85025-TC; 85730-TC; 87040-TC; 87081-TC; 93307-TC; 94799-TC; A4606; J1815; J1956; J2920; J3475; Z7610

== ENCOUNTER 2017-06-22 12:12 | Emergency (ER) | payer MEDICARE, MEDICAID ==
[~2017-06-22] VITALS: Ht 147.3 cm; Wt 63.5 kg
[~2017-06-22 12:12] MED LIST changes: -ACET-2067 PO; +ALBU2.5V13 IH; +ALEN70TA3 GT; -ALEN70TA45 PO; +IPRA0.2S9 IH; +MIRT15TA PO; -MIRT15TA7 PO; -ONDA4TAB5 PO; -SENN8.6T6 PO; -VITA400C24 PO
--- NOTE | 2017-06-22 12:12 | NUR ---
DAWN FROM [facility] SENT BY DR NORMAN FOR LEFT LOWER BACK RADIATES TO LEFT LOWER LEG S/P GLF X 3 WEEKS AGO.
[2017-06-22 13:41] LABS: BASOPHILS # (AUTO) 0.2 /CMM (0.0-0.2); BASOPHILS % (AUTO) 1.6 % (0.0-2.0); EOSINOPHILS % (AUTO) 0.3 % (0.0-6.0); HEMATOCRIT 41 % (33-45); HEMOGLOBIN 13.4 g/dL (11.5-14.8); LYMPHOCYTES # (AUTO) 1.3 /CMM (0.8-4.8); LYMPHOCYTES % (AUTO) 13.4 % (20.0-44.0); MEAN CORPUSCULAR HEMOGLOBIN 32 PG (26.0-33.0); MEAN CORPUSCULAR HGB CONC 33 g/dl (31.0-36.0); MEAN CORPUSCULAR VOLUME 98 fL (82-100); MONOCYTES # (AUTO) 0.1 /CMM (0.1-1.30); MONOCYTES % (AUTO) 1.2 % (2.0-12.0); NEUTROPHILS # (AUTO) 8.3 /CMM (1.8-8.9); NEUTROPHILS % (AUTO) 83.5 % (43.0-81.0); PLATELET COUNT (AUTO) 222 /CMM (150-450); RDW COEFFICIENT OF VARIATION 14.3 (11.5-15.0); RED BLOOD CELL COUNT(AUTO) 4.19 MIL/uL (4.0-5.2); WHITE BLOOD COUNT (AUTO) 9.9 K/uL (4.3-11.0)
[2017-06-22 13:52] LABS: CALCIUM, SERUM 9.5 mg/dL (8.5-10.1); CARBON DIOXIDE 32 mmol/L (21-32); CHLORIDE 106 mmol/L (98-107); CREATININE 1.6 mg/dL (0.6-1.3); GLUCOSE 111 mg/dL (74-106); POTASSIUM 4.3 mmol/L (3.5-5.1); SODIUM SERUM 144 mmol/L (136-145); UREA NITROGEN, BLOOD 32 mg/dL (7-18)
--- NOTE | 2017-06-22 13:54 | NUR ---
PT BACK FROM CT SCAN
[2017-06-22 13:57] LABS: ALANINE AMINOTRANSFERASE 12 U/L (12-78); ALBUMIN 3.3 g/dL (3.4-5.0); ALKALINE PHOSPHATASE 81 U/L (46-116); ASPARTATE AMINOTRANSFERASE 21 U/L (15-37); BILIRUBIN,DIRECT 0.1 mg/dL (0.0-0.2); BILIRUBIN,TOTAL 0.5 mg/dL (0.2-1.0); LIPASE 111 U/L (73-393); TOTAL PROTEIN, SERUM 6.4 g/dL (6.4-8.2)
--- NOTE | 2017-06-22 14:07 | NUR ---
URINE SAMPLE COLLECTED SENT TO LAB
[2017-06-22 14:12] LABS: APPEARANCE,URINE Clear (CLEAR); BILIRUBIN,URINE Negative (NEGATIVE); BLOOD, URINE Trace-lysed Ery/uL (NEGATIVE); COLOR,URINE Yellow (YELLOW); KETONES,URINE Negative (NEGATIVE); LEUKOCYTE ESTERASE ,URINE Negative (NEGATIVE); NITRITE, URINE Negative (NEGATIVE); PH,URINE 5.5 (5.0-8.0); PROTEIN,URINE Negative (NEGATIVE); UGLUCOSE Negative (NEGATIVE); UROBILINOGEN,URINE 0.2 EU/dL (0.2)
[2017-06-22 14:18] LABS: BACTERIA,URINE None seen /HPF (None Seen); SQUAMOUS EPITHELIAL CELL,UR Few /HPF (None Seen); WBC,URINE 0-3 /HPF (0-3)
--- NOTE | 2017-06-22 15:15 | NUR ---
Patient discharged to home in stable condition. Written and verbal after care instructions given. Patient verbalizes understanding of instruction.
[2017-06-22 15:16] VITALS: BP 118/60
--- NOTE | 2017-06-22 15:28 | NUR ---
CALLED [facility] FOR BLS TRANSPORT TO [facility]. ETA 1 HOUR. TRIP#[id number]
== END 2017-06-22 16:29 | disposition home or self-care (01) ==
LOC: ER 12:15
DX: S30.0XXA Contusion of lower back and pelvis, initial encounter (principal); E78.5 Hyperlipidemia, unspecified; G62.9 Polyneuropathy, unspecified; K21.9 Gastro-esophageal reflux disease without esophagitis; I12.9 Hypertensive chronic kidney disease with stage 1 through stage 4 chronic kidney disease, or unspecified chronic kidney disease; N18.9 Chronic kidney disease, unspecified; Z88.8 Allergy status to other drugs, medicaments and biological substances; Z79.82 Long term (current) use of aspirin; Z88.0 Allergy status to penicillin; Z91.012 Allergy to eggs; Z91.018 Allergy to other foods; Z98.890 Other specified postprocedural states
CPT/HCPCS: 36415; 70450-TC; 72131-TC; 72192-TC; 80048-TC; 80076-TC; 81000-TC; 83690-TC; 84484-TC; 85025-TC; A4606; Z7610

== ENCOUNTER 2017-06-29 14:11 | Emergency (ER) | payer MEDICARE, MEDICAID ==
[~2017-06-29] VITALS: Ht 144.8 cm; Wt 63.5 kg
--- NOTE | 2017-06-29 14:18 | NUR ---
[facility]WN FROM [facility] DT LEFT HIP PAIN X 4 WKS, WORST TODAY, 710, SHARP, NON RADIATING, PATIENT IS AAO4,. APPEARS IN NO APPARENT DISTRESS, VSS,.
[2017-06-29] MEDS ORDERED: HYDROCODONE/APAP 5/325MG 1 EACH TABLET PO ONE (15:00)
[2017-06-29] MEDS ORDERED: HYDROCODONE/APAP 5/325MG 1 EACH TABLET ONE (15:35)
--- NOTE | 2017-06-29 17:30 | NUR ---
REPORT GIVEN TO MEDRESPONSE STAFF [facility] TRANSPORT.
[2017-06-29 17:44] VITALS: BP 124/71
== END 2017-06-29 17:46 | disposition home or self-care (01) ==
LOC: ER 14:15
DX: S39.012A Strain of muscle, fascia and tendon of lower back, initial encounter (principal); M79.605 Pain in left leg; E78.5 Hyperlipidemia, unspecified; F03.90 Unspecified dementia, unspecified severity, without behavioral disturbance, psychotic disturbance, mood disturbance, and anxiety; G62.9 Polyneuropathy, unspecified; I12.9 Hypertensive chronic kidney disease with stage 1 through stage 4 chronic kidney disease, or unspecified chronic kidney disease; J44.9 Chronic obstructive pulmonary disease, unspecified; K21.9 Gastro-esophageal reflux disease without esophagitis; N18.9 Chronic kidney disease, unspecified; Z79.82 Long term (current) use of aspirin; Z88.0 Allergy status to penicillin; Z99.81 Dependence on supplemental oxygen; X58.XXXA Exposure to other specified factors, initial encounter; Y92.89 Other specified places as the place of occurrence of the external cause; Y93.89 Activity, other specified; Y99.8 Other external cause status
CPT/HCPCS: 93971; 99284; A4606 ×2; Z7610

== ENCOUNTER 2017-07-01 10:39 | Inpatient (IN) | payer MEDICARE, MEDICAID ==
[~2017-07-01] VITALS: Ht 144.8 cm; Wt 63.5 kg
--- NOTE | 2017-07-01 10:39 | NUR ---
BBPA FROM [facility]: LEFT LEG PAIN. DYSURIA. NAD NOTED. PT AAO X4, VSS. RR EVEN AND UNLABORED. PENDING MD SURBAMANIAN.
[2017-07-01] MEDS ORDERED: IV NS 0.9% 1,000 ML BAG IV ONE (11:00)
[2017-07-01 11:13] LABS: BASOPHILS # (AUTO) 0.2 /CMM (0.0-0.2); BASOPHILS % (AUTO) 1.3 % (0.0-2.0); EOSINOPHILS # (AUTO) 0.1 /CMM (0.0-0.7); EOSINOPHILS % (AUTO) 0.6 % (0.0-6.0); HEMATOCRIT 45 % (33-45); HEMOGLOBIN 14.3 g/dL (11.5-14.8); LYMPHOCYTES # (AUTO) 1.7 /CMM (0.8-4.8); LYMPHOCYTES % (AUTO) 11.3 % (20.0-44.0); MEAN CORPUSCULAR HEMOGLOBIN 32 PG (26.0-33.0); MEAN CORPUSCULAR HGB CONC 32 g/dl (31.0-36.0); MEAN CORPUSCULAR VOLUME 99 fL (82-100); MONOCYTES # (AUTO) 0.5 /CMM (0.1-1.30); MONOCYTES % (AUTO) 3.5 % (2.0-12.0); NEUTROPHILS # (AUTO) 12.2 /CMM (1.8-8.9); NEUTROPHILS % (AUTO) 83.3 % (43.0-81.0); PLATELET COUNT (AUTO) 266 /CMM (150-450); RDW COEFFICIENT OF VARIATION 14.2 (11.5-15.0); RED BLOOD CELL COUNT(AUTO) 4.48 MIL/uL (4.0-5.2); WHITE BLOOD COUNT (AUTO) 14.7 K/uL (4.3-11.0)
[2017-07-01 11:21] LABS: CALCIUM, SERUM 9.7 mg/dL (8.5-10.1); CARBON DIOXIDE 32 mmol/L (21-32); CHLORIDE 106 mmol/L (98-107); CREATININE 1.6 mg/dL (0.6-1.3); GLUCOSE 110 mg/dL (74-106); POTASSIUM 4.3 mmol/L (3.5-5.1); SODIUM SERUM 143 mmol/L (136-145); UREA NITROGEN, BLOOD 28 mg/dL (7-18)
[2017-07-01 11:25] LABS: INR 0.88 (0.87-1.13); PROTHROMBIN TIME 9.1 SECS (9.5-12.7)
[2017-07-01 11:26] LABS: ALANINE AMINOTRANSFERASE 14 U/L (12-78); ALBUMIN 3.5 g/dL (3.4-5.0); ALKALINE PHOSPHATASE 99 U/L (46-116); ASPARTATE AMINOTRANSFERASE 18 U/L (15-37); BILIRUBIN,DIRECT 0.1 mg/dL (0.0-0.2); BILIRUBIN,TOTAL 0.5 mg/dL (0.2-1.0); TOTAL PROTEIN, SERUM 6.6 g/dL (6.4-8.2)
[2017-07-01 11:28] LABS: TROPONIN I < 0.017 ng/mL (0.00-0.056)
[2017-07-01] MEDS ORDERED: TRAM50TA2 PO (11:30)
[2017-07-01] MEDS ORDERED: ACET-868 PO (11:30)
[2017-07-01] MEDS ORDERED: METO25TA3 PO (11:30)
[2017-07-01] MEDS ORDERED: PANT40TA4 PO (11:30)
[2017-07-01] MEDS ORDERED: FURO20TA4 PO (11:30)
[2017-07-01] MEDS ORDERED: FLUT1DIS5 IH (11:30)
[2017-07-01] MEDS ORDERED: TIOT4MIS5 IH (11:30)
[2017-07-01] MEDS ORDERED: PRED10TA PO (11:30)
[2017-07-01] MEDS ORDERED: BUDE10.22 IH (11:30)
--- NOTE | 2017-07-01 12:19 | NUR ---
REPORT GIVEN TO CAROLYN MOHAN FOR KASIA
--- NOTE | 2017-07-01 12:21 | NUR ---
CALLED DR COOPER ANSWERING SERVICE , WAS PAGED.
[2017-07-01 12:42] LABS: APPEARANCE,URINE Clear (CLEAR); BILIRUBIN,URINE Negative (NEGATIVE); BLOOD, URINE Negative Ery/uL (NEGATIVE); COLOR,URINE Yellow (YELLOW); KETONES,URINE Negative (NEGATIVE); LEUKOCYTE ESTERASE ,URINE Negative (NEGATIVE); NITRITE, URINE Negative (NEGATIVE); PH,URINE 5.5 (5.0-8.0); PROTEIN,URINE Trace mg/dl (NEGATIVE); UGLUCOSE Negative (NEGATIVE); UROBILINOGEN,URINE 0.2 EU/dL (0.2)
[2017-07-01 12:48] LABS: BACTERIA,URINE None seen /HPF (None Seen); RBC,URINE 0-2 /HPF (0-2); SQUAMOUS EPITHELIAL CELL,UR Few /HPF (None Seen)
--- NOTE | 2017-07-01 13:55 | NUR ---
MS RN ADMITTING NOTES NOTES PT ADMITTED TO UNIT @ 133H VIA GURNEY ALERT AND ORIENTED X3, VERBALLY RESPONSIVE WITH NO COMPLAINTS OF PAIN OR DISCOMFORTS AT THIS TIME. PT WITH CHIEF COMPLAINTS OF LEFT LEG PAIN AND DYSURIA WITH SIGNIFICANT DIAGNOSIS OF NEUROPATHY, HTN, HYPERLIPIDEMIA, GERD, RESP FAILURE AND CHRONIC KIDNEY DISEASE BUT NOT ON DIALYSIS. PT ORIENTED TO UNIT. ON SUPPLEMENTAL O2 VIA N/C AT 2LPM, BREATHING EVEN WITH NO SOB NOTED. PT HAS LFA G#20 PIV INTACT AND PATENT. V/S TAKEN AND RECORDED. SKIN IS INTACT WITH MULTIPLE HEMATOMA/DISCOLORATIONS ON B/L UPPER AND LOWER EXTREMITIES AND HIPS, PHOTOS TAKEN AND FILED ON CHARD. PLACED BED AT LOWEST POSITION AND LOCKED WITH SIDE-RAILS UP X 2. BED ALARM TURN ON. CALL LIGHT WITHIN REACH. MADE AWARE OF PT'S ADMISSION TO UNIT. ORDERS GIVEN AND CARRIED OUT. WILL CONTINUE TO MONITOR PT ACCORDINGLY.
[2017-07-01] MEDS ORDERED: ACETAMINOPHEN 325 MG TABLET PO PRN (15:00)
[2017-07-01] MEDS ORDERED: ALBUTEROL FS 2.5 MG/0.5 ML VIAL.NEB IH PRN (15:00)
[2017-07-01 16:00] VITALS: BP 120/70
[2017-07-01] MEDS: ALLOPURINOL 100 MG TABLET PO SCH (16:07)
[2017-07-01] MEDS: ASPIRIN 81 MG TAB.CHEW PO SCH (16:08)
[2017-07-01] MEDS ORDERED: FLUTICASONE/SALMETEROL DISKUS IH SCH (17:00)
[2017-07-01] MEDS: IV NS 0.9% 1,000 ML BAG IV PRN (17:07)
[2017-07-01] MEDS: CEFTRIAXONE 1 G in IV D5W 50 ML IV SCH (17:35)
--- NOTE | 2017-07-01 18:45 | NUR ---
MS RN CLOSING NOTES PATIENT RESTING IN BED AT MODERATE HIGH BACKREST. ALERT AND ORIENTED X3 AND VERBALLY RESPONSIVE. IVF OF NS AT 50ML/HR INFUSING WELL TO LEFT FA, NO SIGNS OF INFILTRATION NOTED. MAINTAINED ON 02 VIA N/C AT 2LPM, NO SOB NOTED. ALL NEEDS AND CARE ATTENDED WELL. CALL LIGHT WITHIN REACH. FALL AND SAFETY PRECAUTIONS MAINTAINED. WILL ENDORSED TO AIRPORT DRIVER NURSE FOR KASIA.
--- NOTE | 2017-07-01 19:00 | NUR ---
MS RN OPENING NOTES PT SITTING IN BED, A/OX 3, NO S/S OF RESPIRATORY DISTRESS OR SOB. SAFETY MEASURES IN PLACE, ON LOW BED TO ENSURE SAFETY. CALL LIGHT WITHIN REACH. WILL CONTINUE TO MONITOR
[2017-07-01 20:00] VITALS: BP 139/77
[2017-07-01] MEDS: IPRATROPIUM NEB FS 0.5 MG/2.5 ML AMPUL.NEB NEB SCH (20:21)
[2017-07-01] MEDS: ATORVASTATIN 10 MG TABLET PO SCH (21:15)
[2017-07-01] MEDS: QUETIAPINE FUMARATE 25 MG TABLET PO SCH (21:15)
[2017-07-01] MEDS: MIRTAZAPINE 15 MG TABLET PO SCH (21:16)
[2017-07-02] MEDS: IPRATROPIUM NEB FS 0.5 MG/2.5 ML AMPUL.NEB NEB SCH ×3 (01:30→14:59)
[2017-07-02] MEDS: TRAMADOL HCL 50 MG TABLET PO PRN ×2 (05:49→16:09)
--- NOTE | 2017-07-02 06:36 | NUR ---
MS RN CLOSING NOTES PT ASLEEP HOB ELEVATED AND EASILY AWAKEN, ON 2LPM VIA NC 02 SAT AT 98%. NO S/S OF RESPIRATORY DISTRESS IN STABLE CONDITION, IV SITE NO S/S OF INFILTRATED PATENT AND FLUSHED, NO SOB, AFEBRILE, NEEDS ATTENDED AND ANTICIPATED. NURSING CARE RENDERED. KEPT CLEAN AND DRY AND COMFORTABLE, GOOD SKIN CARE PROVIDED. FREQUENT VISUAL CHECK DONE FOR SAFETY EVERY 2 HOURS. SAFE HAZARD FREE ENVIRONMENT PROVIDED. CALL LIGHT WITHIN EASY TO REACH, ON LOW BED AT ALL TIMES TO ENSURE SAFETY, WILL ENDORSE TO THE NEXT SHIFT CONTINUE PLAN OF CARE.
[2017-07-02 06:38] LABS: BASOPHILS % (AUTO) 0.1 % (0.0-2.0); EOSINOPHILS # (AUTO) 0.2 /CMM (0.0-0.7); HEMATOCRIT 43 % (33-45); HEMOGLOBIN 13.9 g/dL (11.5-14.8); LYMPHOCYTES # (AUTO) 4.5 /CMM (0.8-4.8); LYMPHOCYTES % (AUTO) 28.2 % (20.0-44.0); MEAN CORPUSCULAR HEMOGLOBIN 33 PG (26.0-33.0); MEAN CORPUSCULAR HGB CONC 32 g/dl (31.0-36.0); MEAN CORPUSCULAR VOLUME 100 fL (82-100); MONOCYTES # (AUTO) 1.1 /CMM (0.1-1.30); MONOCYTES % (AUTO) 6.8 % (2.0-12.0); NEUTROPHILS # (AUTO) 10.3 /CMM (1.8-8.9); NEUTROPHILS % (AUTO) 63.9 % (43.0-81.0); PLATELET COUNT (AUTO) 250 /CMM (150-450); RDW COEFFICIENT OF VARIATION 15.1 (11.5-15.0); RED BLOOD CELL COUNT(AUTO) 4.28 MIL/uL (4.0-5.2); WHITE BLOOD COUNT (AUTO) 16.1 K/uL (4.3-11.0)
[2017-07-02 07:11] LABS: CALCIUM, SERUM 9.5 mg/dL (8.5-10.1); CARBON DIOXIDE 26 mmol/L (21-32); CHLORIDE 109 mmol/L (98-107); CREATININE 1.4 mg/dL (0.6-1.3); GLUCOSE 90 mg/dL (74-106); POTASSIUM 4.7 mmol/L (3.5-5.1); SODIUM SERUM 145 mmol/L (136-145); UREA NITROGEN, BLOOD 31 mg/dL (7-18)
--- NOTE | 2017-07-02 07:33 | NUR ---
MS RN OPENING NOTES: RECEIVED PATIENT IN BED AOX2-3, IN NO APPARENT DISTRESS, APPEARS CALM AND COMFORTABLE ON 02 AT 2LPM VIA NC, BREATHING EVEN AND UNLABORED. IV TO LEFT FOREARM G20 INTACT AND PATENT INFUSING WELL WITH NS RUNNING AT 50 ML/HR. SAFETY MEASURES RENDERED, BED LOWEST AND LOCKED POSITION SIDERAILS UPX3. WILL CONTINUE TO MONITOR.
[2017-07-02 08:00] VITALS: BP 105/75
[2017-07-02] MEDS: METOPROLOL SUCCINATE 25 MG TAB.SR.24H PO SCH (08:37)
[2017-07-02] MEDS: predniSONE 10 MG TABLET PO SCH (08:38)
[2017-07-02] MEDS: ASPIRIN 81 MG TAB.CHEW PO SCH (08:39)
[2017-07-02] MEDS: ALLOPURINOL 100 MG TABLET PO SCH (08:39)
[2017-07-02] MEDS: SERTRALINE HCL 25 MG TABLET PO SCH (08:39)
[2017-07-02] MEDS: PANTOPRAZOLE 40 MG TABLET.DR PO SCH (08:39)
[2017-07-02] MEDS ORDERED: Medication Not On Formulary EA (Tiotropium Bromide (Spiriva Respimat) 2 PUFF) IH SCH (09:00)
[2017-07-02] MEDS: FLUTICASONE/VILANTEROL 1 EACH BLST.W.DEV IH SCH (09:55)
[2017-07-02 16:00] VITALS: BP 116/70
[2017-07-02] MEDS: CEFTRIAXONE 1 G in IV D5W 50 ML IV SCH (16:13)
--- NOTE | 2017-07-02 18:51 | NUR ---
ms/rn notes patient resting in bed comfortably, no s/s of distress discomfort noted. all due medications given all needs met and attended, iv fluids with empiric antibiotics infused. Patient oob with physical therapy, tolerating activity well. patient kept clean and dry, safety/fall precautions rendered call light placed within reach.
--- NOTE | 2017-07-02 19:00 | NUR ---
MS RN OPENING NOTES PT RESTING IN BED, A/OX 2-3, IN STABLE CONDITION, NO S/S OF RESPIRATORY DISTRESS OR SOB. SAFETY MEASURES IN PLACE, ON LOW BED TO ENSURE SAFETY. CALL LIGHT WITHIN REACH. WILL CONTINUE TO MONITOR
[2017-07-02 20:00] VITALS: BP 106/56
[2017-07-02] MEDS: ATORVASTATIN 10 MG TABLET PO SCH (21:23)
[2017-07-02] MEDS: MIRTAZAPINE 15 MG TABLET PO SCH (21:23)
[2017-07-02] MEDS: QUETIAPINE FUMARATE 25 MG TABLET PO SCH (21:25)
[2017-07-03] MEDS: IV NS 0.9% 1,000 ML BAG IV PRN (04:49)
--- NOTE | 2017-07-03 06:35 | NUR ---
MS RN CLOSING NOTES PATIENT COMFORTABLY ASLEEP AND EASILY AWAKEN, HEAD OF BED ELEVATED FOR BETTER LUNG EXPANSION ON 2L VIA NC, 02 SAT AT 97 % RESPIRATIONS EVEN AND UNLABORED. NO S/S OF ACUTE DISTRESS, NO SOB, AFEBRILE, ALL NURSING CARE RENDERED, NEEDS ATTENDED AND ANTICIPATED, KEPT CLEAN AND DRY AND COMFORTABLE, GOOD SKIN CARE PROVIDED. FREQUENT VISUAL CHECK DONE FOR SAFETY EVERY 2 HOURS. SAFE HAZARD FREE ENVIRONMENT PROVIDED. CALL LIGHT WITHIN EASY TO REACH, ON LOW BED AT ALL TIMES TO ENSURE SAFETY, WILL ENDORSE TO THE NEXT SHIFT CONTINUE PLAN OF CARE.
[2017-07-03 06:55] LABS: BASOPHILS % (AUTO) 0.3 % (0.0-2.0); EOSINOPHILS # (AUTO) 0.2 /CMM (0.0-0.7); EOSINOPHILS % (AUTO) 1.6 % (0.0-6.0); HEMATOCRIT 36 % (33-45); LYMPHOCYTES # (AUTO) 2.7 /CMM (0.8-4.8); LYMPHOCYTES % (AUTO) 27.2 % (20.0-44.0); MEAN CORPUSCULAR HEMOGLOBIN 33 PG (26.0-33.0); MEAN CORPUSCULAR HGB CONC 33 g/dl (31.0-36.0); MEAN CORPUSCULAR VOLUME 99 fL (82-100); MONOCYTES # (AUTO) 0.8 /CMM (0.1-1.30); MONOCYTES % (AUTO) 7.9 % (2.0-12.0); NEUTROPHILS # (AUTO) 6.2 /CMM (1.8-8.9); PLATELET COUNT (AUTO) 205 /CMM (150-450); RDW COEFFICIENT OF VARIATION 15.1 (11.5-15.0); RED BLOOD CELL COUNT(AUTO) 3.65 MIL/uL (4.0-5.2); WHITE BLOOD COUNT (AUTO) 9.8 K/uL (4.3-11.0)
[2017-07-03 07:27] LABS: CALCIUM, SERUM 8.6 mg/dL (8.5-10.1); CARBON DIOXIDE 31 mmol/L (21-32); CHLORIDE 109 mmol/L (98-107); CREATININE 1.4 mg/dL (0.6-1.3); GLUCOSE 84 mg/dL (74-106); POTASSIUM 4.3 mmol/L (3.5-5.1); SODIUM SERUM 148 mmol/L (136-145); UREA NITROGEN, BLOOD 26 mg/dL (7-18)
--- NOTE | 2017-07-03 07:28 | NUR ---
MS/RN OPENING NOTE PATIENT RECEIVED IN BED IN STABLE CONDITION. A/O X 3. NO SIGNS OF ACUTE DISTRESS. NO COMPLAIN OF PAIN OR DISCOMFORT. ALL NEEDS ATTENDED TO. CALL LIGHT WITHIN REACH. WILL CONTINUE TO MONITOR TO ENSURE SAFETY.
[2017-07-03 07:39] VITALS: BP 143/72
--- NOTE | 2017-07-03 07:45 | NUR ---
MS/RN IV FLUIDS PATIENT CURRENTLY ON NS AT 50 ML/HR. TOLERATING WELL.
[2017-07-03] MEDS: PANTOPRAZOLE 40 MG TABLET.DR PO SCH (08:59)
[2017-07-03] MEDS: ALLOPURINOL 100 MG TABLET PO SCH (08:59)
[2017-07-03] MEDS: predniSONE 10 MG TABLET PO SCH (08:59)
[2017-07-03] MEDS: ASPIRIN 81 MG TAB.CHEW PO SCH (08:59)
[2017-07-03] MEDS: SERTRALINE HCL 25 MG TABLET PO SCH (09:00)
[2017-07-03] MEDS ORDERED: TIOTROPIUM BROMIDE 6 CAP/BOX CAP.W.DEV IH SCH (09:00)
[2017-07-03] MEDS: METOPROLOL SUCCINATE 25 MG TAB.SR.24H PO SCH (09:06)
[2017-07-03] MEDS: FLUTICASONE/VILANTEROL 1 EACH BLST.W.DEV IH SCH (09:07)
[2017-07-03] MEDS: IPRATROPIUM NEB FS 0.5 MG/2.5 ML AMPUL.NEB NEB SCH ×2 (13:30→19:46)
--- NOTE | 2017-07-03 15:59 | NUR ---
MS/RN SEEN BY DR NORMAN PATIENT SEEN BY DR NORMAN AND MADE AWARE PATIENT'S SODIUM 148H WITH NEW ORDER TO DC IV NS @ 50ML/HR. START IV 1/2 NS @ 50ML/HR.
[2017-07-03] MEDS ORDERED: IV 1/2NS 1000 ML 1,000 ML IV PRN (16:00)
[2017-07-03] MEDS: CEFTRIAXONE 1 G in IV D5W 50 ML IV SCH (16:59)
[2017-07-03 17:06] VITALS: BP 146/77
--- NOTE | 2017-07-03 18:20 | NUR ---
MS/RN CLOSING NOTE PATIENT IN BED IN STABLE CONDITION. A/O X 3. NO SIGNS OF ACUTE DISTRESS. NO COMPLAIN OF PAIN OR DISCOMFORT. ALL NEEDS ATTENDED TO. CALL LIGHT WITHIN REACH. WILL ENDORSE TO NEXT SHIFT FOR CONTINUITY OF CARE.
--- NOTE | 2017-07-03 19:40 | NUR ---
MS RN INITIAL NOTES PT IS IN BED ALERT AND AWAKE. NO SIGNS OF SOB OR DISTRESS. BREATHING EVENLY AND UNLABORED. SITTER AT BED SIDE. BED IS IN LOW AND LOCKED POSITION, CALL LIGHT WITHIN REACH. WILL CONTINUE TO MONITOR PT.
[2017-07-03] MEDS: ATORVASTATIN 10 MG TABLET PO SCH (21:01)
[2017-07-03] MEDS: QUETIAPINE FUMARATE 25 MG TABLET PO SCH (21:01)
[2017-07-03] MEDS: MIRTAZAPINE 15 MG TABLET PO SCH (21:02)
--- NOTE | 2017-07-03 22:00 | NUR ---
MS RN NOTES PT IS AGGRAVATED AND REFUSED CARE. WANTS TO LEAVE. MD WAS NOTIFIED. MD STATED TO GIVE WARM MILK OR TEA AND TO GIVE PT A MASSAGE. NO MEDICATION TO BE ORDERED. WILL CONTINUE TO MONITOR PT.
[2017-07-03] MEDS: TRAMADOL HCL 50 MG TABLET PO PRN (22:52)
[2017-07-04] MEDS: IPRATROPIUM NEB FS 0.5 MG/2.5 ML AMPUL.NEB NEB SCH ×4 (01:22→19:30)
--- NOTE | 2017-07-04 06:49 | NUR ---
MS RN CLOSING NOTES PT IS IN BED NOW SLEEPING. NO SIGNS OF SOB OR DISTRESS. PT STAYED AWAKE UNTIL 0600 TODAY. ALL NEEDS WERE ANTICIPATED AND MET. WILL ENDORSE TO DAY SHIFT.
[2017-07-04 08:00] VITALS: BP 148/73
--- NOTE | 2017-07-04 08:00 | NUR ---
MS RN NOTES PATIENT IN BED RESTING NO SOB OR ACUTE DISTRESS NOTED. SITTER AT BEDSIDE. PERIPHERAL IV INTACT PATENT. BED IN LOW LOCKED POSITION. PATIENT DENIES ANY PAIN OR DISCOMFORT. WILL CONTINUE TO MONITOR.
[2017-07-04] MEDS: ASPIRIN 81 MG TAB.CHEW PO SCH (08:17)
[2017-07-04 08:18] VITALS: BP 148/73
[2017-07-04] MEDS: SERTRALINE HCL 25 MG TABLET PO SCH (08:18)
[2017-07-04] MEDS: METOPROLOL SUCCINATE 25 MG TAB.SR.24H PO SCH (08:18)
[2017-07-04] MEDS: PANTOPRAZOLE 40 MG TABLET.DR PO SCH (08:18)
[2017-07-04] MEDS: ALLOPURINOL 100 MG TABLET PO SCH (08:18)
[2017-07-04] MEDS: predniSONE 10 MG TABLET PO SCH (08:18)
[2017-07-04] MEDS: FLUTICASONE/VILANTEROL 1 EACH BLST.W.DEV IH SCH (08:21)
--- NOTE | 2017-07-04 11:00 | NUR ---
MS RN NOTES PATIENT SEEN AND EVALUATED BY DR. NORMAN ORDERS NOTED AND CARRIED OUT.
--- NOTE | 2017-07-04 11:05 | NUR ---
WOUND CARE CONSULT: PT PRESENTS WITH MULTIPLE BRUISES, PRESENT ON ADMISSION. PT HAS BUMP TO LEFT CALF. DEFER TO MD FOR BUMP. ALL SKIN PROTECTION MEASURES IN PLACE AND DISCUSSED WITH NURSING STAFF. PT TENDS TO MOVE VERY QUICKLY AND IS ABLE TO ASSIST WITH TURNING AND REPOSITIONING IN BED. WILL SEE PRN. BRIONES IN AGREEMENT WITH PLAN OF CARE. Addendum: 07/04/17 at 1106 by RAGHAV SIMONS WNDNU Amended: Links added.
[2017-07-04] MEDS ORDERED: Z GUARD REMEDY 2 OZ OINT TP PRN (11:30)
[2017-07-04] MEDS: CEFTRIAXONE 1 G in IV D5W 50 ML IV SCH (17:22)
--- NOTE | 2017-07-04 19:30 | NUR ---
MS RN NOTES PATIENT IN BED RESTING CONFUSED, IN STABLE CONDITION, PERIPHERAL IV INTACT PATENT. ALL DUE MEDICATIONS ADMINISTERED. ALL NEEDS MET. PATIENT AWAITING FOR DISCHARGE. REPORT GIVEN TO JARAD AT [facility]. ENDORSED KASIA TO ARLENE GUPTA RN.
== END 2017-07-04 20:20 | DRG 177 ==
LOC: ER 10:41 → MED 12:29
PROVIDERS: ADMIT Internal Medicine; ATTEND Internal Medicine
DX: J69.0 Pneumonitis due to inhalation of food and vomit (principal); N17.0 Acute kidney failure with tubular necrosis; G93.40 Encephalopathy, unspecified; N39.0 Urinary tract infection, site not specified; J44.0 Chronic obstructive pulmonary disease with (acute) lower respiratory infection; G30.9 Alzheimer's disease, unspecified; F02.80 Dementia in other diseases classified elsewhere, unspecified severity, without behavioral disturbance, psychotic disturbance, mood disturbance, and anxiety; I35.0 Nonrheumatic aortic (valve) stenosis; R62.7 Adult failure to thrive; J44.9 Chronic obstructive pulmonary disease, unspecified; N18.3 Chronic kidney disease, stage 3 (moderate); I12.9 Hypertensive chronic kidney disease with stage 1 through stage 4 chronic kidney disease, or unspecified chronic kidney disease; E78.5 Hyperlipidemia, unspecified; K21.9 Gastro-esophageal reflux disease without esophagitis; M19.90 Unspecified osteoarthritis, unspecified site; Z87.891 Personal history of nicotine dependence; Z88.0 Allergy status to penicillin; M25.552 Pain in left hip; R29.6 Repeated falls; Z91.81 History of falling
CPT/HCPCS: 36415; 71010-TC; 73502; 73564-TC; 80048-TC; 80076-TC; 81000-TC; 83605-TC; 84484-TC; 85025-TC; 85730-TC; 87040-TC; 87081-TC; 87086-TC; 93971-TC; 94799-TC; 97116-TC; 97530-TC; A4606; J0696; J3490; J7030; J7060; Z7610

== ENCOUNTER 2017-08-14 08:32 | Emergency (ER) | payer MEDICARE, MEDICAID ==
[~2017-08-14] VITALS: Ht 157.5 cm; Wt 65.8 kg
[~2017-08-14 08:32] MED LIST changes: +ACET-868 PO; -ALEN70TA3 GT; -CHOL100044 PO; +FLUT1DIS5 IH; -IPRA0.2S9 IH; +METO25TA3 PO; +PANT40TA4 PO; +PRED10TA PO; +TIOT4MIS5 IH; +TRAM50TA2 PO
--- NOTE | 2017-08-14 08:32 | NUR ---
BIB PRIVATE AMBULANCE. MCHANICAL TRIP AND FALL YESTERDAY L KNEE AND L WRIST BRUISING SKIN TEAR
[2017-08-14] MEDS ORDERED: TDAP [DIPH/PERTUSSIS/TET] 0.5 ML VIAL IM ONE ×2 (09:00)
--- NOTE | 2017-08-14 11:54 | NUR ---
CALLED [facility] FOR BLS TRANSPORT SPOKE WITH DECEMBER. ETA 15 MINUTES. TRIP #[id number].
[2017-08-14 12:22] VITALS: BP 142/42
== END 2017-08-14 12:23 | disposition home or self-care (01) ==
LOC: ER 08:34
DX: S61.512A Laceration without foreign body of left wrist, initial encounter (principal); S81.021A Laceration with foreign body, right knee, initial encounter; R51 Headache; I10 Essential (primary) hypertension; E78.5 Hyperlipidemia, unspecified; G62.9 Polyneuropathy, unspecified; K21.9 Gastro-esophageal reflux disease without esophagitis; Z79.82 Long term (current) use of aspirin; Z88.0 Allergy status to penicillin; W01.0XXA Fall on same level from slipping, tripping and stumbling without subsequent striking against object, initial encounter; Y93.89 Activity, other specified; Y92.89 Other specified places as the place of occurrence of the external cause; Y99.8 Other external cause status
CPT/HCPCS: 70450; 73110; 73564; 90471; 90715; 99284; A4606; A6402; Z7610

== ENCOUNTER 2017-09-09 11:07 | Inpatient (IN) | payer MEDICARE, MEDICAID ==
[~2017-09-09] VITALS: Ht 152.4 cm; Wt 66.2 kg
[~2017-09-09 11:07] MED LIST changes: +ASPI-1169 PO; -ASPI81TA2 PO
[2017-09-09] MEDS ORDERED: IV NS 0.9% 1,000 ML BAG IV ONE (11:30)
[2017-09-09] MEDS ORDERED: CHOL100044 PO (11:34)
[2017-09-09 11:55] LABS: BASOPHILS % (AUTO) 0.1 % (0.0-2.0); EOSINOPHILS % (AUTO) 0.2 % (0.0-6.0); HEMATOCRIT 42 % (33-45); HEMOGLOBIN 13.6 g/dL (11.5-14.8); LYMPHOCYTES # (AUTO) 1.1 /CMM (0.8-4.8); LYMPHOCYTES % (AUTO) 9.4 % (20.0-44.0); MEAN CORPUSCULAR HEMOGLOBIN 32 PG (26.0-33.0); MEAN CORPUSCULAR HGB CONC 32 g/dl (31.0-36.0); MEAN CORPUSCULAR VOLUME 99 fL (82-100); MONOCYTES # (AUTO) 0.5 /CMM (0.1-1.30); MONOCYTES % (AUTO) 4.1 % (2.0-12.0); NEUTROPHILS % (AUTO) 86.2 % (43.0-81.0); PLATELET COUNT (AUTO) 178 /CMM (150-450); RED BLOOD CELL COUNT(AUTO) 4.28 MIL/uL (4.0-5.2); WHITE BLOOD COUNT (AUTO) 11.6 K/uL (4.3-11.0)
[2017-09-09 12:04] LABS: CALCIUM, SERUM 9.3 mg/dL (8.5-10.1); CARBON DIOXIDE 32 mmol/L (21-32); CHLORIDE 101 mmol/L (98-107); CREATININE 1.5 mg/dL (0.6-1.3); GLUCOSE 88 mg/dL (74-106); SODIUM SERUM 141 mmol/L (136-145); UREA NITROGEN, BLOOD 26 mg/dL (7-18)
[2017-09-09 12:09] LABS: PROTHROMBIN TIME 10.4 SECS (9.5-12.7); TROPONIN I 0.039 ng/mL (0.00-0.056)
[2017-09-09 12:10] LABS: ALANINE AMINOTRANSFERASE 14 U/L (12-78); ALBUMIN 3.2 g/dL (3.4-5.0); ALKALINE PHOSPHATASE 93 U/L (46-116); ASPARTATE AMINOTRANSFERASE 24 U/L (15-37); BILIRUBIN,DIRECT 0.2 mg/dL (0.0-0.2); BILIRUBIN,TOTAL 0.6 mg/dL (0.2-1.0); TOTAL PROTEIN, SERUM 6.5 g/dL (6.4-8.2)
[2017-09-09 12:44] LABS: APPEARANCE,URINE CLEAR (CLEAR); BILIRUBIN,URINE NEGATIVE (NEGATIVE); BLOOD, URINE TRACE-INTA Ery/uL (NEGATIVE); COLOR,URINE YELLOW (YELLOW); KETONES,URINE NEGATIVE (NEGATIVE); LEUKOCYTE ESTERASE ,URINE NEGATIVE (NEGATIVE); NITRITE, URINE NEGATIVE (NEGATIVE); PH,URINE 7.5 (5.0-8.0); PROTEIN,URINE NEGATIVE (NEGATIVE); UGLUCOSE NEGATIVE (NEGATIVE); UROBILINOGEN,URINE 0.2 EU/dL (0.2)
[2017-09-09 12:54] LABS: RBC,URINE 0-2 /HPF (0-2); WBC,URINE NONE SEEN /HPF (0-3)
[2017-09-09 12:55] LABS: BACTERIA,URINE None seen /HPF (None Seen); SQUAMOUS EPITHELIAL CELL,UR Few /HPF (None Seen)
[2017-09-09] MEDS ORDERED: LEVOFLOXACIN 750 MG /D5W 150ML 150 ML IV ONE ×2 (13:00→13:06)
[2017-09-09] MEDS ORDERED: CEFTRIAXONE 1GM BAG (ER ONLY) 50 ML IV ONE ×2 (13:00→13:06)
[2017-09-09 13:45] VITALS: BP 117/75
[2017-09-09] MEDS ORDERED: ALBUTEROL FS 2.5 MG/0.5 ML VIAL.NEB NEB PRN ×2 (15:00)
[2017-09-09] MEDS ORDERED: IPRATROPIUM NEB FS 0.5 MG/2.5 ML AMPUL.NEB NEB PRN ×2 (15:00)
[2017-09-09] MEDS ORDERED: IPRATROPIUM NEB FS 0.5 MG/2.5 ML AMPUL.NEB ONE (15:19)
[2017-09-09] MEDS ORDERED: ALBUTEROL FS 2.5 MG/3 ML VIAL.NEB ONE (15:19)
[2017-09-09 16:00] VITALS: BP 120/79
[2017-09-09] MEDS ORDERED: methylPREDNISolone SOD SUCC 125 MG/2ML VIAL IV ONE (17:00)
[2017-09-09] MEDS: ENOXAPARIN SODIUM 30 MG/0.3 ML DISP.SYRIN SQ SCH (17:03)
[2017-09-09] MEDS: AZITHROMYCIN 500 MG in IV D5W 250 ML IV SCH (17:59)
[2017-09-09] MEDS ORDERED: TRAMADOL HCL 50 MG TABLET PO PRN (18:00)
[2017-09-09 20:00] VITALS: BP_SYST 129; BP_DIAS 64; BP_DIAS 89
[2017-09-09] MEDS: ALBUTEROL FS 2.5 MG/0.5 ML VIAL.NEB NEB SCH ×2 (20:09→23:26)
[2017-09-09] MEDS: IPRATROPIUM NEB FS 0.5 MG/2.5 ML AMPUL.NEB NEB SCH ×2 (20:09→23:27)
[2017-09-09] MEDS: QUETIAPINE FUMARATE 25 MG TABLET PO SCH (21:57)
[2017-09-09] MEDS: ATORVASTATIN 10 MG TABLET PO SCH (21:57)
[2017-09-09] MEDS: MIRTAZAPINE 15 MG TABLET PO SCH (21:57)
[2017-09-10] VITALS: BP 101/61
[2017-09-10] MEDS: IPRATROPIUM NEB FS 0.5 MG/2.5 ML AMPUL.NEB NEB SCH ×6 (03:07→23:30)
[2017-09-10] MEDS: ALBUTEROL FS 2.5 MG/0.5 ML VIAL.NEB NEB SCH ×6 (03:07→23:30)
[2017-09-10 04:00] VITALS: BP 130/70
[2017-09-10 07:06] VITALS: BP 132/71
[2017-09-10 07:06] LABS: HEMATOCRIT 38 % (33-45); HEMOGLOBIN 12.4 g/dL (11.5-14.8); LYMPHOCYTES # (AUTO) 0.6 /CMM (0.8-4.8); LYMPHOCYTES % (AUTO) 7.2 % (20.0-44.0); MEAN CORPUSCULAR HEMOGLOBIN 32 PG (26.0-33.0); MEAN CORPUSCULAR HGB CONC 33 g/dl (31.0-36.0); MEAN CORPUSCULAR VOLUME 99 fL (82-100); MONOCYTES # (AUTO) 0.4 /CMM (0.1-1.30); MONOCYTES % (AUTO) 4.4 % (2.0-12.0); NEUTROPHILS # (AUTO) 7.8 /CMM (1.8-8.9); NEUTROPHILS % (AUTO) 88.4 % (43.0-81.0); PLATELET COUNT (AUTO) 157 /CMM (150-450); RDW COEFFICIENT OF VARIATION 13.7 (11.5-15.0); RED BLOOD CELL COUNT(AUTO) 3.86 MIL/uL (4.0-5.2); WHITE BLOOD COUNT (AUTO) 8.9 K/uL (4.3-11.0)
[2017-09-10 07:29] LABS: B-TYPE NATRIURETIC PEPTIDE 7401 PG/ML (0-125); CALCIUM, SERUM 8.5 mg/dL (8.5-10.1); CARBON DIOXIDE 32 mmol/L (21-32); CHLORIDE 104 mmol/L (98-107); CREATININE 1.7 mg/dL (0.6-1.3); GLUCOSE 114 mg/dL (74-106); POTASSIUM 4.1 mmol/L (3.5-5.1); SODIUM SERUM 143 mmol/L (136-145); UREA NITROGEN, BLOOD 28 mg/dL (7-18)
[2017-09-10 08:00] VITALS: BP 141/81
[2017-09-10] MEDS: METOPROLOL SUCCINATE 25 MG TAB.SR.24H PO SCH (09:00)
[2017-09-10] MEDS: SERTRALINE HCL 25 MG TABLET PO SCH (09:16)
[2017-09-10] MEDS: ASPIRIN 81 MG TAB.CHEW PO SCH (09:16)
[2017-09-10] MEDS: predniSONE 20 MG TABLET PO SCH (09:16)
[2017-09-10] MEDS: CHOLECALCIFEROL 1,000 UNIT TABLET (VIT D3) PO SCH (09:17)
[2017-09-10] MEDS: ALLOPURINOL 100 MG TABLET PO SCH (09:17)
[2017-09-10] MEDS: PANTOPRAZOLE 40 MG TABLET.DR PO SCH (09:22)
[2017-09-10 16:00] VITALS: BP 127/61
[2017-09-10] MEDS: AZITHROMYCIN 500 MG in IV D5W 250 ML IV SCH (17:20)
[2017-09-10 20:00] VITALS: BP 143/78
[2017-09-10] MEDS: ENOXAPARIN SODIUM 30 MG/0.3 ML DISP.SYRIN SQ SCH (21:01)
[2017-09-10] MEDS: ATORVASTATIN 10 MG TABLET PO SCH (21:01)
[2017-09-10] MEDS: MIRTAZAPINE 15 MG TABLET PO SCH (21:02)
[2017-09-10] MEDS: QUETIAPINE FUMARATE 25 MG TABLET PO SCH (21:02)
[2017-09-11] MEDS: ALBUTEROL FS 2.5 MG/0.5 ML VIAL.NEB NEB SCH ×6 (03:30→22:37)
[2017-09-11] MEDS: IPRATROPIUM NEB FS 0.5 MG/2.5 ML AMPUL.NEB NEB SCH ×6 (03:30→22:37)
[2017-09-11 04:00] VITALS: BP 104/72
[2017-09-11 08:00] VITALS: BP 100/72
[2017-09-11] MEDS: CHOLECALCIFEROL 1,000 UNIT TABLET (VIT D3) PO SCH (08:52)
[2017-09-11] MEDS: ASPIRIN 81 MG TAB.CHEW PO SCH (08:52)
[2017-09-11] MEDS: predniSONE 20 MG TABLET PO SCH (08:52)
[2017-09-11] MEDS: SERTRALINE HCL 25 MG TABLET PO SCH (08:52)
[2017-09-11] MEDS: PANTOPRAZOLE 40 MG TABLET.DR PO SCH (08:52)
[2017-09-11] MEDS: ALLOPURINOL 100 MG TABLET PO SCH (08:53)
[2017-09-11] MEDS: METOPROLOL SUCCINATE 25 MG TAB.SR.24H PO SCH (09:00)
[2017-09-11] MEDS: AZITHROMYCIN 250 MG TABLET PO SCH (18:46)
[2017-09-11 20:00] VITALS: BP 112/62
[2017-09-11] MEDS: ENOXAPARIN SODIUM 30 MG/0.3 ML DISP.SYRIN SQ SCH (21:18)
[2017-09-11] MEDS: ATORVASTATIN 10 MG TABLET PO SCH (21:19)
[2017-09-11] MEDS: QUETIAPINE FUMARATE 25 MG TABLET PO SCH (21:19)
[2017-09-11] MEDS: MIRTAZAPINE 15 MG TABLET PO SCH (21:19)
[2017-09-11] MEDS ORDERED: SENNOSIDES 8.6 MG TABLET ONE (21:25)
[2017-09-11] MEDS: SENNOSIDES 8.6 MG TABLET PO SCH (21:27)
[2017-09-12] MEDS: ALBUTEROL FS 2.5 MG/0.5 ML VIAL.NEB NEB SCH ×6 (04:04→22:40)
[2017-09-12] MEDS: IPRATROPIUM NEB FS 0.5 MG/2.5 ML AMPUL.NEB NEB SCH ×6 (04:04→22:40)
[2017-09-12 04:17] VITALS: BP 121/63
[2017-09-12 08:00] VITALS: BP 138/87
[2017-09-12] MEDS: ALLOPURINOL 100 MG TABLET PO SCH (09:24)
[2017-09-12] MEDS: OSELTAMIVIR PHOSPHATE 75 MG CAPSULE PO SCH ×2 (09:24→17:28)
[2017-09-12] MEDS: CHOLECALCIFEROL 1,000 UNIT TABLET (VIT D3) PO SCH (09:25)
[2017-09-12] MEDS: PANTOPRAZOLE 40 MG TABLET.DR PO SCH (09:25)
[2017-09-12] MEDS: ASPIRIN 81 MG TAB.CHEW PO SCH (09:26)
[2017-09-12] MEDS: SERTRALINE HCL 25 MG TABLET PO SCH (09:26)
[2017-09-12] MEDS: predniSONE 20 MG TABLET PO SCH (09:27)
[2017-09-12] MEDS: METOPROLOL SUCCINATE 25 MG TAB.SR.24H PO SCH (09:30)
[2017-09-12 16:00] VITALS: BP 100/69
[2017-09-12] MEDS: AZITHROMYCIN 250 MG TABLET PO SCH (17:27)
[2017-09-12 20:00] VITALS: BP 131/85
[2017-09-12] MEDS: QUETIAPINE FUMARATE 25 MG TABLET PO SCH (21:03)
[2017-09-12] MEDS: ENOXAPARIN SODIUM 30 MG/0.3 ML DISP.SYRIN SQ SCH (21:03)
[2017-09-12] MEDS: ATORVASTATIN 10 MG TABLET PO SCH (21:03)
[2017-09-12] MEDS: SENNOSIDES 8.6 MG TABLET PO SCH (21:03)
[2017-09-12] MEDS: MIRTAZAPINE 15 MG TABLET PO SCH (21:04)
[2017-09-13] MEDS: ALBUTEROL FS 2.5 MG/0.5 ML VIAL.NEB NEB SCH ×4 (03:30→15:13)
[2017-09-13] MEDS: IPRATROPIUM NEB FS 0.5 MG/2.5 ML AMPUL.NEB NEB SCH ×4 (03:30→15:12)
[2017-09-13 08:00] VITALS: BP 105/73
[2017-09-13 08:43] VITALS: BP 105/73
[2017-09-13] MEDS: ALLOPURINOL 100 MG TABLET PO SCH (08:43)
[2017-09-13] MEDS: METOPROLOL SUCCINATE 25 MG TAB.SR.24H PO SCH (08:43)
[2017-09-13] MEDS: predniSONE 20 MG TABLET PO SCH (08:44)
[2017-09-13] MEDS: ASPIRIN 81 MG TAB.CHEW PO SCH (08:44)
[2017-09-13] MEDS: CHOLECALCIFEROL 1,000 UNIT TABLET (VIT D3) PO SCH (08:44)
[2017-09-13] MEDS: PANTOPRAZOLE 40 MG TABLET.DR PO SCH (08:44)
[2017-09-13] MEDS: OSELTAMIVIR PHOSPHATE 75 MG CAPSULE PO SCH ×2 (08:44→16:30)
[2017-09-13] MEDS: SERTRALINE HCL 25 MG TABLET PO SCH (08:44)
[2017-09-13] MEDS: AZITHROMYCIN 250 MG TABLET PO SCH (16:30)
[2017-09-16] MEDS ORDERED: predniSONE 20 MG TABLET PO SCH (09:00)
== END 2017-09-13 17:50 | DRG 190 ==
LOC: ER 11:08 → TELE 13:20 → MED 09-10 09:26
PROVIDERS: ADMIT Internal Medicine; ATTEND Internal Medicine
DX: J44.1 Chronic obstructive pulmonary disease with (acute) exacerbation (principal); G93.40 Encephalopathy, unspecified; G30.9 Alzheimer's disease, unspecified; Z99.81 Dependence on supplemental oxygen; F02.80 Dementia in other diseases classified elsewhere, unspecified severity, without behavioral disturbance, psychotic disturbance, mood disturbance, and anxiety; N18.3 Chronic kidney disease, stage 3 (moderate); I12.9 Hypertensive chronic kidney disease with stage 1 through stage 4 chronic kidney disease, or unspecified chronic kidney disease; I25.10 Atherosclerotic heart disease of native coronary artery without angina pectoris; K21.9 Gastro-esophageal reflux disease without esophagitis; Z87.891 Personal history of nicotine dependence; E78.5 Hyperlipidemia, unspecified; J10.1 Influenza due to other identified influenza virus with other respiratory manifestations; Z88.0 Allergy status to penicillin; I35.0 Nonrheumatic aortic (valve) stenosis; E79.0 Hyperuricemia without signs of inflammatory arthritis and tophaceous disease
CPT/HCPCS: 36415; 71010-TC; 80048-TC; 80076-TC; 81000-TC; 83605-TC; 83880; 84484-TC; 85025-TC; 85730-TC; 87040-TC; 87081-TC; 87086-TC; 87400; 94799-TC; 97116-TC; 97530-TC; A4606; J0456; J0696; J1650; J1956; J2930; J7030; J7060; Z7610

== ENCOUNTER 2017-10-24 10:56 | Inpatient (IN) | payer MEDICARE, MEDICAID ==
[~2017-10-24] VITALS: Ht 157.5 cm; Wt 65.8 kg
[~2017-10-24 10:56] MED LIST changes: -ACET-868 PO; -ALBU2.5V13 IH; +CHOL100044 PO; -FLUT1DIS5 IH; -PRED10TA PO; -TIOT4MIS5 IH
--- NOTE | 2017-10-24 11:28 | NUR ---
BB [facility]IVATE EMS FROM [facility] FOR RT HIP PAIN X 1 MONTH,WORSE LAST WEEK. NO INJURY REPORTED. PATIENT IS AWAKE AND ALERT. IN NO DISTRSS. VSS
--- NOTE | 2017-10-24 12:39 | NUR ---
REQUESTED [facility] FOR TRANSPORT TO [facility], ETA 10 MIN
[2017-10-24 13:41] LABS: APPEARANCE,URINE Clear (CLEAR); BILIRUBIN,URINE Negative (NEGATIVE); BLOOD, URINE Negative Ery/uL (NEGATIVE); COLOR,URINE Yellow (YELLOW); KETONES,URINE Negative (NEGATIVE); LEUKOCYTE ESTERASE ,URINE Negative (NEGATIVE); NITRITE, URINE Negative (NEGATIVE); PROTEIN,URINE Negative (NEGATIVE); UGLUCOSE Negative (NEGATIVE); UROBILINOGEN,URINE 0.2 EU/dL (0.2)
--- NOTE | 2017-10-24 14:01 | NUR ---
REQUESTED [facility] FOR TRANSPORT BACK TO [facility], ETA 30 MIN
--- NOTE | 2017-10-24 16:10 | NUR ---
CALLED 'S OFFICE, SAID THEY CAN NOT REPAGE HIM AGAIN AND TO JUST WAIT FOR HIS CALL
--- NOTE | 2017-10-24 16:28 | NUR ---
CALLED , TRANSFERRED CALL TO
--- NOTE | 2017-10-24 16:37 | NUR ---
CALLED NURSING SUP. FOR MS BED
--- NOTE | 2017-10-24 17:03 | NUR ---
MS 203
--- NOTE | 2017-10-24 17:15 | NUR ---
REPORT GIVEM TO RN AFSATU FOR CONTINUITY OF CARE
[2017-10-24 17:19] LABS: BASOPHILS % (AUTO) 0.3 % (0.0-2.0); EOSINOPHILS % (AUTO) 0.1 % (0.0-6.0); HEMATOCRIT 37 % (33-45); HEMOGLOBIN 12.2 g/dL (11.5-14.8); LYMPHOCYTES # (AUTO) 1.2 /CMM (0.8-4.8); LYMPHOCYTES % (AUTO) 12.3 % (20.0-44.0); MEAN CORPUSCULAR HEMOGLOBIN 32 PG (26.0-33.0); MEAN CORPUSCULAR HGB CONC 33 g/dl (31.0-36.0); MEAN CORPUSCULAR VOLUME 98 fL (82-100); MONOCYTES # (AUTO) 0.2 /CMM (0.1-1.30); MONOCYTES % (AUTO) 1.6 % (2.0-12.0); NEUTROPHILS # (AUTO) 8.4 /CMM (1.8-8.9); NEUTROPHILS % (AUTO) 85.7 % (43.0-81.0); PLATELET COUNT (AUTO) 255 /CMM (150-450); RDW COEFFICIENT OF VARIATION 15.6 (11.5-15.0); RED BLOOD CELL COUNT(AUTO) 3.79 MIL/uL (4.0-5.2); WHITE BLOOD COUNT (AUTO) 9.8 K/uL (4.3-11.0)
[2017-10-24 17:34] LABS: CARBON DIOXIDE 33 mmol/L (21-32); CHLORIDE 107 mmol/L (98-107); CREATININE 1.5 mg/dL (0.6-1.3); GLUCOSE 159 mg/dL (74-106); POTASSIUM 4.4 mmol/L (3.5-5.1); SODIUM SERUM 145 mmol/L (136-145); UREA NITROGEN, BLOOD 28 mg/dL (7-18)
--- NOTE | 2017-10-24 19:40 | NUR ---
MS RN NOTE: PATIENT RESTING IN PLACE, NO ACUTE DISTRESS NOTED. BREATHING EVEN AND UNLABORED, NO SOB NOTED. IV TO LAC IN PLACE. CALLED DR. NORMAN EXCHANGE FOR ADMIT ORDERS, WAITING CALL BACK. BED LOCKED AND IN LOWEST POSITION, CALL LIGHT IN REACH. WILL CONTINUE TO MONITOR.
[2017-10-24 20:00] VITALS: BP 128/82
--- NOTE | 2017-10-24 21:15 | NUR ---
MS RN NOTE: RECEIVED CALL BACK FROM DR. CHRISTOPHER VALIENTE WITH ADMIT ORDER. ORDERS READ BACK, VERIFIED, AND NOTED. WILL CONTINUE TO MONITOR.
[2017-10-24] MEDS ORDERED: ATORVASTATIN 10 MG TABLET ONE (21:42)
[2017-10-24] MEDS ORDERED: MIRTAZAPINE 15 MG TABLET ONE (21:42)
[2017-10-24] MEDS ORDERED: QUETIAPINE FUMARATE 25 MG TABLET ONE (21:42)
[2017-10-24] MEDS ORDERED: MIRTAZAPINE 15 MG TABLET PO SCH (22:00)
[2017-10-24] MEDS ORDERED: QUETIAPINE FUMARATE 25 MG TABLET PO SCH (22:00)
[2017-10-24] MEDS ORDERED: ATORVASTATIN 10 MG TABLET PO SCH (22:00)
--- NOTE | 2017-10-25 06:30 | NUR ---
MS RN NOTE: PATIENT RESTING IN PLACE, NO ACUTE DISTRESS NOTED. BREATHING EVEN AND UNLABORED, NO SOB NOTED. IV TO LAC IN PLACE. BED LOCKED AND IN LOWEST POSITION, CALL LIGHT IN REACH. WILL ENDORSE TO DAY NURSE TO CONTINUE WITH PLAN OF CARE.
[2017-10-25 06:35] LABS: BASOPHILS % (AUTO) 0.3 % (0.0-2.0); EOSINOPHILS # (AUTO) 0.1 /CMM (0.0-0.7); EOSINOPHILS % (AUTO) 1.5 % (0.0-6.0); HEMATOCRIT 35 % (33-45); HEMOGLOBIN 11.7 g/dL (11.5-14.8); LYMPHOCYTES # (AUTO) 2.6 /CMM (0.8-4.8); LYMPHOCYTES % (AUTO) 26.5 % (20.0-44.0); MEAN CORPUSCULAR HEMOGLOBIN 33 PG (26.0-33.0); MEAN CORPUSCULAR HGB CONC 33 g/dl (31.0-36.0); MEAN CORPUSCULAR VOLUME 99 fL (82-100); MONOCYTES # (AUTO) 0.6 /CMM (0.1-1.30); MONOCYTES % (AUTO) 6.4 % (2.0-12.0); NEUTROPHILS # (AUTO) 6.4 /CMM (1.8-8.9); NEUTROPHILS % (AUTO) 65.3 % (43.0-81.0); PLATELET COUNT (AUTO) 242 /CMM (150-450); RDW COEFFICIENT OF VARIATION 15.4 (11.5-15.0); RED BLOOD CELL COUNT(AUTO) 3.59 MIL/uL (4.0-5.2); WHITE BLOOD COUNT (AUTO) 9.8 K/uL (4.3-11.0)
[2017-10-25 06:51] LABS: CALCIUM, SERUM 9.1 mg/dL (8.5-10.1); CARBON DIOXIDE 32 mmol/L (21-32); CHLORIDE 110 mmol/L (98-107); CREATININE 1.4 mg/dL (0.6-1.3); GLUCOSE 86 mg/dL (74-106); POTASSIUM 3.9 mmol/L (3.5-5.1); SODIUM SERUM 150 mmol/L (136-145); UREA NITROGEN, BLOOD 27 mg/dL (7-18)
[2017-10-25 06:53] LABS: CHOLESTEROL 124 mg/dL (<200); HDL CHOLESTEROL 45 mg/dL (40-60); LDL 70 mg/dL (0-99); TRIGLYCERIDES 94 mg/dL (30-150)
--- NOTE | 2017-10-25 07:05 | NUR ---
MS RN OPENING NOTES RECEIVED PT FROM NIGHTSHIFT NURSE IN STABLE CONDITION. PT IS A/O X2 WITH PERIODS OF CONFUSION. NO SOB OR SIGNS OF DISTRESS NOTED. BREATHING IS EVEN AND UNLABORED. PT IS ON 2L VIA NC AND SATING WELL ABOVE 94%. IV ON LEFT AC NOTED TO BE PATENT AND INTACT. NO REDNESS OR SIGNS OF INFILTRATION NOTED. BED IN LOW LOCKED POSITION, SIDE RAILS UP X3, CALL LIGHT WITHIN REACH, BED ALARM ON. WILL CONTINUE TO MONITOR
[2017-10-25 08:33] VITALS: BP 120/82
[2017-10-25] MEDS ORDERED: TRAMADOL HCL 50 MG TABLET PO PRN (09:30)
--- NOTE | 2017-10-25 12:58 | NUR ---
MS RN NOTES DR. NORMAN CAME TO ASSESS PT AND STATED THAT HE WANTS HER TO "CONTINUE ALBUTEROL SUL 1.25MG Q2HRS PRN, PREDNISONE 20MG DAILY, AND SPIRIVA 2.5 MCG TWO PUFFS DAILY". ORDERS IMPUTED
[2017-10-25] MEDS ORDERED: ALBUTEROL HALF STRENGTH 1.25 MG/3 ML VIAL.NEB NEB PRN (13:00)
[2017-10-25] MEDS: IPRATROPIUM NEB FS 0.5 MG/2.5 ML AMPUL.NEB NEB SCH ×3 (13:30→23:37)
--- NOTE | 2017-10-25 14:53 | NUR ---
RT NOTE: WAS NOT AWARE OF RESPIRATORY ORDER AT 1300. MADE AWARE BY NURSE(AFSATU) ABOUT NEW ORDER AT THIS TIME. TREATMENT WAS ADMINISTERED WITH NO ADVERSE REACTIONS.
[2017-10-25 16:02] VITALS: BP 141/76
--- NOTE | 2017-10-25 18:31 | NUR ---
MS RN CLOSING NOTES PT REMAINS IN STABLE CONDITION. ALL NEEDS MET DURING SHIFT AND ORDERS CARRIED OUT ACCORDINGLY. ALL DUE MED MEDS GIVE. PT WAS KEPT CLEAN AND DRY ALL THROUGHOUT SHIFT. SAFETY MEASURES REMAIN IN PLACE. VITALS STABLE THROUGHOUT SHIFT. WILL ENDORSE TO NIGHTSHIFT NURSE FOR KASIA
--- NOTE | 2017-10-25 19:30 | NUR ---
RN NOTE; RECEIVED PT IN BED AWAKE AND RESPONSIVE. BREATHING EVENLY. NO SOB. NAD .SKIN WARM AND DRY, NO C/O PAIN OR DISCOMFORT AT THIS TIME. NEEDS ATTENDED . ASSISTED W/ ADLS . CALL LIGHT WITHIN REACH. WILL CONT TO MONITOR
[2017-10-25 20:00] VITALS: BP_SYST 93; BP_SYST 97; BP_DIAS 67
[2017-10-25] MEDS: MIRTAZAPINE 15 MG TABLET PO SCH (21:16)
[2017-10-25] MEDS: QUETIAPINE FUMARATE 25 MG TABLET PO SCH (21:17)
[2017-10-25] MEDS: ATORVASTATIN 10 MG TABLET PO SCH (21:17)
--- NOTE | 2017-10-26 06:23 | NUR ---
RN NOTE; PT IN BED SLEEPING, AROUSES EASILY. BREATHING EVENLY. NO SOB. NAD . SKIN WARM ND DRY. NO C/O PAIN OR DISCOMFORT . REMAINED STABLE. CLEANED AND DRIED. BED LOW LOCKED .CALL LIGHT WITHIN REACH,. WILL CONT TO MONITOR AND WILL ENDORSE TO AM SHIFT FOR KASIA.
--- NOTE | 2017-10-26 07:36 | NUR ---
MS RN OPENING NOTE PATIENT IS ALERT AND ORIENTED x2. NO PAIN AT THIS TIME. NO SOB OR DISTRESS NOTED. ON 2L/MIN OF OXYGEN VIA NASAL CANNULA TOLERATING WELL. ABLE TO COMMUNICATE NEEDS. IV ON LAC INTACT AND PATENT NO REDNESS OR SWELLING NOTED. BED LOCKED IN LOWEST POSITION. AMBULATORY WITH ASSISTANCE. AWAITING SNF PLACEMENT PER DR. NORMAN . WILL CONTINUE TO MONITOR THROUGHOUT SHIFT
[2017-10-26 08:00] VITALS: BP 129/68
[2017-10-26] MEDS: CHOLECALCIFEROL 1,000 UNIT TABLET (VIT D3) PO SCH (08:16)
[2017-10-26] MEDS: SERTRALINE HCL 25 MG TABLET PO SCH (08:16)
[2017-10-26] MEDS: predniSONE 20 MG TABLET PO SCH (08:16)
[2017-10-26] MEDS: ASPIRIN 81 MG TAB.CHEW PO SCH (08:16)
[2017-10-26] MEDS: ALLOPURINOL 100 MG TABLET PO SCH (08:16)
[2017-10-26] MEDS: METOPROLOL SUCCINATE 25 MG TAB.SR.24H PO SCH (08:17)
[2017-10-26] MEDS: PANTOPRAZOLE 40 MG TABLET.DR PO SCH (08:17)
[2017-10-26] MEDS: IPRATROPIUM NEB FS 0.5 MG/2.5 ML AMPUL.NEB NEB SCH ×4 (09:30→23:34)
[2017-10-26 16:00] VITALS: BP 89/76
--- NOTE | 2017-10-26 17:23 | NUR ---
MS RN NOTE RECEIVED CALL FROM MICROBIOLOGY PATIENT IS POSITIVE FOR MRSA NARES. ISOLATION PRECAUTIONS IN PLACE
--- NOTE | 2017-10-26 18:41 | NUR ---
MS RN CLOSING NOTE PATIENT IS IN BED AT THIS TIME. NO COMPLAINTS OF PAIN. NO SOB OR DISTRESS NOTED. CALL LIGHT WITHIN REACH AT ALL TIMES. SAFETY MEASURES IMPLEMENTED. ALL DUE MEDICATIONS GIVEN ORDERED. POSSIBLE DISCHARGE TOMORROW TO FOLLOW UP WITH CASE MANAGEMENT. IV INTACT AND PATENT. HAS LABS IN AM. 2L/MIN OF OXYGEN VIA NASAL CANNULA TOLERATING WELL. WILL ENDORSE TO PRODUCT SAFETY MANAGER FOR KASIA
[2017-10-26 19:42] VITALS: BP 93/67
--- NOTE | 2017-10-26 20:00 | NUR ---
RN NOTES RECEIVED PT. SLEEPING BUT AROUSABLE, A/OX3 WITH PERIOD OF CONFUSION, DENIES PAIN, NO SOB, CALL LIGHT WITHIN REACH, [id number] CONTINUE TO MONITOR
[2017-10-26] MEDS: ATORVASTATIN 10 MG TABLET PO SCH (21:03)
[2017-10-26] MEDS: QUETIAPINE FUMARATE 25 MG TABLET PO SCH (21:03)
[2017-10-26] MEDS: MIRTAZAPINE 15 MG TABLET PO SCH (21:03)
--- NOTE | 2017-10-27 06:21 | NUR ---
RN NOTE; PT. RESTING IN HER BED , REMAINS IN STABLE CONDITION , AROUSES EASILY. BREATHING EVENLY. NO SOB. NO ACUTE DISTRESS NOTED, DENIES ANY PAIN OR DISCOMFORT AT THIS TIME . ALL NEEDS ATTENDED AND ANTICIPATED,PT. WILL CONT TO MONITOR AND WILL ENDORSE TO AM SHIFT FOR CONTINUTY OF CARE..
[2017-10-27 06:49] VITALS: BP 105/64
[2017-10-27 06:55] LABS: BASOPHILS % (AUTO) 0.3 % (0.0-2.0); EOSINOPHILS # (AUTO) 0.1 /CMM (0.0-0.7); EOSINOPHILS % (AUTO) 1.6 % (0.0-6.0); HEMATOCRIT 35 % (33-45); HEMOGLOBIN 11.5 g/dL (11.5-14.8); LYMPHOCYTES # (AUTO) 2.2 /CMM (0.8-4.8); LYMPHOCYTES % (AUTO) 24.5 % (20.0-44.0); MEAN CORPUSCULAR HEMOGLOBIN 33 PG (26.0-33.0); MEAN CORPUSCULAR HGB CONC 33 g/dl (31.0-36.0); MEAN CORPUSCULAR VOLUME 98 fL (82-100); MONOCYTES # (AUTO) 0.8 /CMM (0.1-1.30); MONOCYTES % (AUTO) 8.7 % (2.0-12.0); NEUTROPHILS # (AUTO) 5.9 /CMM (1.8-8.9); NEUTROPHILS % (AUTO) 64.9 % (43.0-81.0); PLATELET COUNT (AUTO) 202 /CMM (150-450); RDW COEFFICIENT OF VARIATION 14.8 (11.5-15.0); RED BLOOD CELL COUNT(AUTO) 3.52 MIL/uL (4.0-5.2); WHITE BLOOD COUNT (AUTO) 9.1 K/uL (4.3-11.0)
[2017-10-27 07:05] LABS: CALCIUM, SERUM 8.8 mg/dL (8.5-10.1); CARBON DIOXIDE 33 mmol/L (21-32); CHLORIDE 108 mmol/L (98-107); CREATININE 1.3 mg/dL (0.6-1.3); GLUCOSE 80 mg/dL (74-106); POTASSIUM 3.7 mmol/L (3.5-5.1); SODIUM SERUM 147 mmol/L (136-145); UREA NITROGEN, BLOOD 28 mg/dL (7-18)
[2017-10-27] MEDS: PANTOPRAZOLE 40 MG TABLET.DR PO SCH (07:41)
[2017-10-27] MEDS: ASPIRIN 81 MG TAB.CHEW PO SCH (08:01)
[2017-10-27] MEDS: CHOLECALCIFEROL 1,000 UNIT TABLET (VIT D3) PO SCH (08:01)
[2017-10-27] MEDS: predniSONE 20 MG TABLET PO SCH (08:01)
[2017-10-27] MEDS: SERTRALINE HCL 25 MG TABLET PO SCH (08:01)
[2017-10-27] MEDS: ALLOPURINOL 100 MG TABLET PO SCH (08:01)
[2017-10-27 08:05] VITALS: BP 105/64
[2017-10-27] MEDS: METOPROLOL SUCCINATE 25 MG TAB.SR.24H PO SCH (08:05)
[2017-10-27] MEDS: IPRATROPIUM NEB FS 0.5 MG/2.5 ML AMPUL.NEB NEB SCH (08:22)
--- NOTE | 2017-10-27 15:35 | NUR ---
M/S RN - Discharge Pt feeling better, A/O x 2, discharged to [facility] in stable condition. Reviewed discharge instructions with Tawana RN Assistant Operations Manager and she verbalized full understanding and all questions answered to her satisfaction. All belongings with pt and she denies any missing items. VSS, denies pain, afebrile, no c/o SOB, on 2 lpm via NC, no apparent distress seen. Heplock removed on the LAC with catheter tip intact, no redness and no swelling noted at the site. Skin is intact except for bilateral arm bruise (healing), pt refused photo to be taken. Discharge papers sent with ambulance crew. Sister Sury at bedside aware of discharge.
== END 2017-10-27 15:35 | DRG 553 ==
LOC: ER 10:58 → MEDSG2 18:50
PROVIDERS: ADMIT Internal Medicine; ATTEND Internal Medicine
DX: M16.0 Bilateral primary osteoarthritis of hip (principal); G93.40 Encephalopathy, unspecified; E87.0 Hyperosmolality and hypernatremia; J44.9 Chronic obstructive pulmonary disease, unspecified; G30.9 Alzheimer's disease, unspecified; F02.80 Dementia in other diseases classified elsewhere, unspecified severity, without behavioral disturbance, psychotic disturbance, mood disturbance, and anxiety; R62.7 Adult failure to thrive; N18.3 Chronic kidney disease, stage 3 (moderate); Z88.0 Allergy status to penicillin; Z88.8 Allergy status to other drugs, medicaments and biological substances; Z91.012 Allergy to eggs; Z91.018 Allergy to other foods; Z79.82 Long term (current) use of aspirin; Z79.899 Other long term (current) drug therapy; E55.9 Vitamin D deficiency, unspecified; E79.0 Hyperuricemia without signs of inflammatory arthritis and tophaceous disease; I35.0 Nonrheumatic aortic (valve) stenosis
CPT/HCPCS: 36415; 71045-TC; 73502; 80048-TC; 80061-TC; 81000-TC; 85025-TC; 87081-TC; 94799-TC; A4606; Z7610

== ENCOUNTER 2018-04-01 17:13 | Inpatient (IN) | payer MEDICARE, MEDICAID ==
[~2018-04-01] VITALS: Ht 162.6 cm; Wt 50.1 kg
--- NOTE | 2018-04-01 18:35 | NUR ---
TATO FROM [facility] WITH C/O DIARRHEA AND +NAUSEA THIS AM, DENIES VOMITING AOX3 , VSS STABLE , SKIN WARM TO TOUCH ,GOWNED AND ATTACH TO BEDSIDE MONITOR , WILL CONTINUE TO MONITOR
--- NOTE | 2018-04-01 18:56 | NUR ---
IV ACCESS STARTED. BLOOD DRAWN FOR LABS. MEDICATED ORDERED.
[2018-04-01] MEDS ORDERED: IV NS 0.9% 1,000 ML BAG IV ONE (19:00)
--- NOTE | 2018-04-01 19:02 | NUR ---
URINE SPECIMEN COLLECTED , LABELED AND SENT TO LAB
[2018-04-01 19:08] LABS: BASOPHILS # (AUTO) 0.1 /CMM (0.0-0.2); WHITE BLOOD COUNT (AUTO) 12.6 K/uL (4.3-11.0)
[2018-04-01 19:09] LABS: APPEARANCE,URINE Slightly Cloudy (CLEAR); BASOPHILS % (AUTO) 0.4 % (0.0-2.0); BILIRUBIN,URINE SMALL (NEGATIVE); BLOOD, URINE Negative Ery/uL (NEGATIVE); COLOR,URINE Yellow (YELLOW); EOSINOPHILS % (AUTO) 0.7 % (0.0-6.0); HEMATOCRIT 36 % (33-45); KETONES,URINE Negative (NEGATIVE); LEUKOCYTE ESTERASE ,URINE Small (NEGATIVE); LYMPHOCYTES # (AUTO) 2.7 /CMM (0.8-4.8); LYMPHOCYTES % (AUTO) 21.1 % (20.0-44.0); MEAN CORPUSCULAR HEMOGLOBIN 32 PG (26.0-33.0); MEAN CORPUSCULAR HGB CONC 33 g/dl (31.0-36.0); MEAN CORPUSCULAR VOLUME 96 fL (82-100); MONOCYTES # (AUTO) 0.7 /CMM (0.1-1.30); MONOCYTES % (AUTO) 5.6 % (2.0-12.0); NEUTROPHILS % (AUTO) 72.2 % (43.0-81.0); NITRITE, URINE Negative (NEGATIVE); PLATELET COUNT (AUTO) 270 /CMM (150-450); PROTEIN,URINE Negative (NEGATIVE); UGLUCOSE Negative (NEGATIVE); UROBILINOGEN,URINE 0.2 EU/dL (0.2)
--- NOTE | 2018-04-01 19:11 | NUR ---
REPORT GIVEN TO GWYN MOHAN FOR KASIA.
[2018-04-01 19:18] LABS: CALCIUM, SERUM 9.4 mg/dL (8.5-10.1); CARBON DIOXIDE 30 mmol/L (21-32); CHLORIDE 100 mmol/L (98-107); CREATININE 2.7 mg/dL (0.6-1.3); GLUCOSE 85 mg/dL (74-106); POTASSIUM 3.6 mmol/L (3.5-5.1); SODIUM SERUM 138 mmol/L (136-145); UREA NITROGEN, BLOOD 77 mg/dL (7-18)
--- NOTE | 2018-04-01 19:19 | NUR ---
received report from shey hager for lupe.
[2018-04-01 19:21] LABS: INR 0.99 (0.85-1.15)
[2018-04-01 19:24] LABS: ALANINE AMINOTRANSFERASE 11 U/L (12-78); ALBUMIN 2.4 g/dL (3.4-5.0); ALKALINE PHOSPHATASE 161 U/L (46-116); ASPARTATE AMINOTRANSFERASE 18 U/L (15-37); BILIRUBIN,DIRECT 0.3 mg/dL (0.0-0.2); BILIRUBIN,TOTAL 0.6 mg/dL (0.2-1.0); TOTAL PROTEIN, SERUM 6.3 g/dL (6.4-8.2)
--- NOTE | 2018-04-01 19:27 | NUR ---
called rt for breathing treatment
[2018-04-01] MEDS ORDERED: ONDANSETRON HCL/PF 4 MG/2 ML VIAL ONE (19:28)
[2018-04-01] MEDS ORDERED: FAMOTIDINE/PF INJ 20 MG/2 ML VIAL IV ONE ×2 (19:29→19:30)
[2018-04-01] MEDS ORDERED: ALBUTEROL FS 2.5 MG/3 ML VIAL.NEB NEB ONE ×2 (19:30→21:30)
[2018-04-01] MEDS ORDERED: IV NS 0.9% 1,000 ML IV ONE (19:30)
[2018-04-01] MEDS ORDERED: IPRATROPIUM NEB FS 0.5 MG/2.5 ML AMPUL.NEB NEB ONE ×2 (19:30→21:30)
[2018-04-01] MEDS ORDERED: ONDANSETRON HCL/PF - ER 4 MG/2 ML VIAL IV ONE (19:30)
[2018-04-01] MEDS ORDERED: ALBUTEROL FS 2.5 MG/3 ML VIAL.NEB ONE (19:39)
[2018-04-01] MEDS ORDERED: IPRATROPIUM NEB FS 0.5 MG/2.5 ML AMPUL.NEB ONE (19:39)
--- NOTE | 2018-04-01 19:42 | NUR ---
RT BEDSIDE FOR BREATHING TREATMENT
[2018-04-01 19:46] LABS: BACTERIA,URINE 1+ /HPF (None Seen); HYALINE CASTS, URINE Many /LPF (None Seen); RBC,URINE NONE SEEN /HPF (0-2); SQUAMOUS EPITHELIAL CELL,UR Moderate /HPF (None Seen)
[2018-04-01] MEDS ORDERED: LEVOFLOXACIN 500 MG /D5W 100ML 500 MG/100 ML PIGGYBACK IV ONE (20:30)
--- NOTE | 2018-04-01 20:30 | NUR ---
DR.BRENT FAROOQ, LEFT MESSAGE ON VOICEMAIL
[2018-04-01] MEDS ORDERED: IV NS 0.9% 500 ML IV ONE (21:30)
[2018-04-01] MEDS ORDERED: ONDANSETRON 4 MG TAB.RAPDIS PO PRN (21:30)
[2018-04-01] MEDS ORDERED: TRAMADOL HCL 50 MG TABLET PO PRN (22:00)
[2018-04-01] MEDS ORDERED: LEVOFLOXACIN 500 MG /D5W 100ML 100 ML IV ONE (22:15)
--- NOTE | 2018-04-01 22:28 | NUR ---
REPORT GIVEN TO GREENS KEEPERMARQUES PERSON FOR KASIA
--- NOTE | 2018-04-01 22:40 | NUR ---
CONTACT LENS BLOCKER AND CUTTER NOTES: Patient came to unit via wheelchair, alert, oriented x 1-2. Patient is confused. Frequent reminders given. She came in with IV antibiotic, site patent and intact. Patient oriented to use of call roberts. Cleaned and washed. Skin assessment done. Pictures in chart. Safety precautions in place. Bed in low, locked position. Will continue to monitor
[2018-04-01 23:00] VITALS: BP 102/60
[2018-04-02] MEDS: MIRTAZAPINE 15 MG TABLET PO SCH ×2 (00:03→21:27)
[2018-04-02] MEDS: ATORVASTATIN 10 MG TABLET PO SCH ×2 (00:03→21:26)
[2018-04-02] MEDS: QUETIAPINE FUMARATE 25 MG TABLET PO SCH ×2 (00:03→21:27)
--- NOTE | 2018-04-02 00:25 | NUR ---
RN NOTES: PRETZEL TWISTING MACHINE OPERATOR reported that when she was helping the patient, patient stated that she is afraid that the RN or the hospital staff might kill her or harm her. Patient given reassurance that hospital staff are here to help her and not harm her.
[2018-04-02 06:06] LABS: BASOPHILS % (AUTO) 0.2 % (0.0-2.0); EOSINOPHILS % (AUTO) 0.1 % (0.0-6.0); HEMATOCRIT 31 % (33-45); HEMOGLOBIN 10.1 g/dL (11.5-14.8); LYMPHOCYTES % (AUTO) 19.5 % (20.0-44.0); MEAN CORPUSCULAR HEMOGLOBIN 32 PG (26.0-33.0); MEAN CORPUSCULAR HGB CONC 32 g/dl (31.0-36.0); MEAN CORPUSCULAR VOLUME 99 fL (82-100); MONOCYTES # (AUTO) 0.6 /CMM (0.1-1.30); MONOCYTES % (AUTO) 5.6 % (2.0-12.0); NEUTROPHILS # (AUTO) 7.6 /CMM (1.8-8.9); NEUTROPHILS % (AUTO) 74.6 % (43.0-81.0); PLATELET COUNT (AUTO) 230 /CMM (150-450); RDW COEFFICIENT OF VARIATION 16.9 (11.5-15.0); RED BLOOD CELL COUNT(AUTO) 3.16 MIL/uL (4.0-5.2); WHITE BLOOD COUNT (AUTO) 10.2 K/uL (4.3-11.0)
[2018-04-02 06:41] LABS: ALANINE AMINOTRANSFERASE 10 U/L (12-78); ALBUMIN 1.9 g/dL (3.4-5.0); ALKALINE PHOSPHATASE 129 U/L (46-116); ASPARTATE AMINOTRANSFERASE 20 U/L (15-37); BILIRUBIN,TOTAL 0.4 mg/dL (0.2-1.0); CALCIUM, SERUM 7.7 mg/dL (8.5-10.1); CARBON DIOXIDE 26 mmol/L (21-32); CHLORIDE 106 mmol/L (98-107); CREATININE 2.2 mg/dL (0.6-1.3); GLUCOSE 85 mg/dL (74-106); POTASSIUM 3.4 mmol/L (3.5-5.1); SODIUM SERUM 141 mmol/L (136-145); UREA NITROGEN, BLOOD 66 mg/dL (7-18)
--- NOTE | 2018-04-02 07:15 | NUR ---
ms rn initial notes Received patient in bed, awake, head of bed elevated, no SOB or distress noted, on 02 @ 2lpm via NC and tolerated well. Patient is alert and oriented x 2 with confusion. IV intact and patent HL only. Bed alarm on due to patient keeps getting out of bed, unsafe for the patient. No complaint of pain at this time. Call light with in patient reach, will continue to monitor accordingly.
--- NOTE | 2018-04-02 07:29 | NUR ---
RN CLOSING NOTES: Patient in bed, still sleeping but easily arousable. on 2L O2 via NC saturating at 96%. IV site on L AC intact and patent. No complaints as of this time. All needs attended to. All due medications given as ordered. Call roberts within reach. Bed in low locked position. Endorsed to morning shift RN.
[2018-04-02 08:00] VITALS: BP 105/55
[2018-04-02] MEDS: FAMOTIDINE/PF INJ 20 MG/2 ML VIAL IV SCH (08:52)
[2018-04-02] MEDS: METOPROLOL SUCCINATE 25 MG TAB.SR.24H PO SCH (08:53)
[2018-04-02] MEDS: SERTRALINE HCL 25 MG TABLET PO SCH (08:53)
[2018-04-02] MEDS: ALLOPURINOL 100 MG TABLET PO SCH (08:53)
[2018-04-02] MEDS: PANTOPRAZOLE 40 MG TABLET.DR PO SCH (08:54)
[2018-04-02] MEDS: CHOLECALCIFEROL 1,000 UNIT TABLET (VIT D3) PO SCH (08:54)
[2018-04-02] MEDS: ASPIRIN 81 MG TAB.CHEW PO SCH (08:54)
--- NOTE | 2018-04-02 09:19 | NUR ---
ms rn notes Held BP medication due to bp low 105/55.
[2018-04-02] MEDS ORDERED: POTASSIUM CHLORIDE 10 MEQ TABLET.SA PO ONE (10:00)
[2018-04-02] MEDS ORDERED: IV NS 0.9% 1,000 ML BAG IV PRN (11:00)
[2018-04-02] MEDS ORDERED: IV NS 0.9% 1,000 ML IV PRN (12:00)
[2018-04-02 15:57] VITALS: BP 90/51
[2018-04-02 16:00] VITALS: BP 90/51
--- NOTE | 2018-04-02 19:03 | NUR ---
ms rn closing notes All needs provided, attended, and anticipated. Patient is in stable condition. Endorsed to next shift RN to continue care. Jitendra light with in patient reach.
--- NOTE | 2018-04-02 19:20 | NUR ---
MS RN INITIAL NOTES: Received patient in bed, awake, head of bed elevated, no SOB or distress noted, on 02 @ 2lpm via NC and tolerated well. Patient is alert and oriented x 2 with confusion. Peripheral IV intact and patent, infusing @ 75mL/hr. Bed alarm on due to patient keeps getting out of bed, unsafe for the patient. No complaint of pain at this time. Call light with in patient reach. Patient stable as endorsed by the AM shift RN. Will continue to monitor accordingly.
[2018-04-02 20:00] VITALS: BP 120/66
[2018-04-02 20:37] VITALS: BP 120/66
--- NOTE | 2018-04-03 04:24 | NUR ---
RN NOTES: Patient's IV was accidentally pulled out by the patient when she was trying to sit up in bed.
--- NOTE | 2018-04-03 05:30 | NUR ---
RN NOTES: New IV catheter inserted
--- NOTE | 2018-04-03 06:56 | NUR ---
RN CLOSING NOTES: Patient in bed, alert, oriented x 1, confused, frequent reminders given. Peripheral IV on Right hand infusing at 80ml/hr. Patient moved her bowels x 2 this shift. Call roberts within reach. Bed in low locked position. Will enodrse lupe to am shift RN.
--- NOTE | 2018-04-03 08:00 | NUR ---
RN NOTES RECEIVED PATIENT IN THE BED A/O X1, CONFUSED, NEED REDIRECTION, PATIENT HAS NO ACUTE REPARATORY DISTRESS, COUCHING. ADMINISTERED SCHEDULED MEDICATION V/S STABLE, ASSIST EATING. PATIENT FALL PRECAUTION. NEED ATTENDED AND ANTICIPATED. INFUSING NS AT75 ML/HR INTACT. PATIENT INCONTINENT USING DIAPER, SAFETY PRECAUTION MAINTAINED ALL THE.
[2018-04-03] MEDS: ALLOPURINOL 100 MG TABLET PO SCH (09:15)
[2018-04-03] MEDS: ASPIRIN 81 MG TAB.CHEW PO SCH (09:15)
[2018-04-03] MEDS: METOPROLOL SUCCINATE 25 MG TAB.SR.24H PO SCH (09:15)
[2018-04-03] MEDS: CHOLECALCIFEROL 1,000 UNIT TABLET (VIT D3) PO SCH (09:15)
[2018-04-03] MEDS: SERTRALINE HCL 25 MG TABLET PO SCH (09:16)
[2018-04-03] MEDS: PANTOPRAZOLE 40 MG TABLET.DR PO SCH (09:16)
[2018-04-03] MEDS: FAMOTIDINE/PF INJ 20 MG/2 ML VIAL IV SCH (09:16)
--- NOTE | 2018-04-03 12:30 | NUR ---
RN NOTES PATIENT KEEP GETTING OUT OF BED, FALL PRECAUTION, NICELY CONFUSED, NEED CONSTANT REDIRECTION, FORGETFUL. CALL LIGHT WITHIN TO REACH, SAFETY PRECAUTION MAINTAINED ALL THE TIME. ASSIST EATING. SAFETY PRECAUTION MAINTAINED ALL THE TIME.
--- NOTE | 2018-04-03 13:30 | NUR ---
RN NOTES PATIENT WITH THE PT.
--- NOTE | 2018-04-03 13:40 | NUR ---
RN NOTES PATIENT MORE CONFUSED, REMOVED IV LINE. KEEP GETTING OUT OF BED, FALL PRECAUTION. PATIENT SEATING IN THE CHAIR IN HALLWAY, SAFETY PRECAUTION MAINTAINED ALL THE TIME. SISTER NEXT TO THE PATIENT. OFFERED SOME SNACKS. CONTINUED MONITORING.
[2018-04-03 16:00] VITALS: BP 103/61
--- NOTE | 2018-04-03 16:01 | NUR ---
RN NOTES ASSIST PATIENT BACK TO THE BED, CONFUSED, POSSIBLE GOING TO D/C SNF. CALL LIGHT WITHIN TO REACH. CONTINUED MONITORING.
--- NOTE | 2018-04-03 16:25 | NUR ---
RN NOTES PATIENT FALL RISK, CONFUSED, HARD TO FOLLOW DIRECTION PER DR NORMAN GET ORDER 1:1 SITTER, ORDER TAKEN AND CARRIED OUT.
[2018-04-03 17:49] LABS: BASOPHILS % (AUTO) 0.1 % (0.0-2.0); EOSINOPHILS % (AUTO) 0.3 % (0.0-6.0); HEMATOCRIT 35 % (33-45); LYMPHOCYTES # (AUTO) 1.4 /CMM (0.8-4.8); LYMPHOCYTES % (AUTO) 10.4 % (20.0-44.0); MEAN CORPUSCULAR HEMOGLOBIN 32 PG (26.0-33.0); MEAN CORPUSCULAR HGB CONC 32 g/dl (31.0-36.0); MEAN CORPUSCULAR VOLUME 100 fL (82-100); MONOCYTES # (AUTO) 0.6 /CMM (0.1-1.30); MONOCYTES % (AUTO) 4.3 % (2.0-12.0); NEUTROPHILS # (AUTO) 11.4 /CMM (1.8-8.9); NEUTROPHILS % (AUTO) 84.9 % (43.0-81.0); PLATELET COUNT (AUTO) 255 /CMM (150-450); RDW COEFFICIENT OF VARIATION 16.7 (11.5-15.0); RED BLOOD CELL COUNT(AUTO) 3.46 MIL/uL (4.0-5.2); WHITE BLOOD COUNT (AUTO) 13.4 K/uL (4.3-11.0)
[2018-04-03] MEDS ORDERED: IMIPENEM/CILASTATIN 250 MG in IV NS 0.9% 50 ML IV SCH (18:00)
[2018-04-03 18:10] LABS: CALCIUM, SERUM 8.4 mg/dL (8.5-10.1); CARBON DIOXIDE 26 mmol/L (21-32); CHLORIDE 110 mmol/L (98-107); CREATININE 1.8 mg/dL (0.6-1.3); GLUCOSE 83 mg/dL (74-106); POTASSIUM 3.8 mmol/L (3.5-5.1); SODIUM SERUM 143 mmol/L (136-145); UREA NITROGEN, BLOOD 47 mg/dL (7-18)
--- NOTE | 2018-04-03 18:30 | NUR ---
RN NOTES PATIENT STABLE NO ACUTE DISTRESS ON 2 L NC. PATIENT A/O X1, CONFUSED, SCHEDULED MEDICATION ADMINISTERED, INFUSING NS AT 75 ML/HR INTACT. CALL LIGHT WITHIN TO REACH. PATIENT ON 1 :1 SITTER FOR SAFETY PRECAUTION. FAMILY NEXT TO THE BED. ENDORSED ONCOMING NURSE FOR PLAN OF CARE.
--- NOTE | 2018-04-03 19:30 | NUR ---
MS/RN NOTES RECEIVED PT. LYING IN BED. PT. IS AWAKE, ALERT AND ORIENTED TO SELF, PT. IS CONFUSED. BREATHING EVEN AND UNLABORED ON 2LPM O2 VIA NC. NO SOB, RESPIRATORY DISTRESS OR COMPLAINTS OF PAIN NOTED AT THIS TIME. PT. WITH RIGHT UPPER ARM 22 GAUGE PERIPHERAL IV PRESENT, PATENT AND INTACT ADMINISTERING TO PT. NS @ 80ML/HR. BED LOCKED AND IN LOWEST POSITION, SIDE RAILS UP X3, BED ALARM ON, WILL CONTINUE TO MONITOR.
[2018-04-03 20:00] VITALS: BP 116/68
[2018-04-03] MEDS: MEROPENEM 500 MG in IV NS 0.9% 50 ML IV SCH (20:13)
[2018-04-03] MEDS ORDERED: LEVOFLOXACIN 250 MG /D5W 50 ML 250 MG in PREMIX 1 EA IV SCH (21:00)
[2018-04-03] MEDS: MIRTAZAPINE 15 MG TABLET PO SCH ×2 (21:20→22:00)
[2018-04-03] MEDS: ATORVASTATIN 10 MG TABLET PO SCH ×2 (21:20→22:00)
[2018-04-03] MEDS: QUETIAPINE FUMARATE 25 MG TABLET PO SCH ×2 (21:20→22:00)
[2018-04-03] MEDS ORDERED: LORAZEPAM INJ 2 MG/ML VIAL IV PRN (22:00)
--- NOTE | 2018-04-03 22:15 | NUR ---
MS RN NOTE: PATIENT AGITATED AND TRYING TO LEAVE AND GETTING OUT OF BED. PATIENT UNSTABLE TO AMBULATE WITHOUT ASSIST. TRIED TO REORIENT PATIENT AND INFORMED THAT SHE IS IN HOSPITAL AND HERE TO HELP HER. PATIENT WANTS TO LEAVE. CALLED DR. NORMAN OFFICE, SPOKE TO CAUSTIC OPERATOR MD DR. CHRISTOPHER VALIENTE, REQUESTED FOR ANXIETY MEDICATION, RECEIVED ORDER FOR ATIVAN 1MG IV EVERY 6 HOURS NEEDED. ORDER NOTED AND CARRIED OUT. WILL CONTINUE TO MONITOR.
[2018-04-04 06:35] LABS: BASOPHILS % (AUTO) 0.4 % (0.0-2.0); EOSINOPHILS % (AUTO) 0.9 % (0.0-6.0); HEMATOCRIT 34 % (33-45); HEMOGLOBIN 10.9 g/dL (11.5-14.8); LYMPHOCYTES # (AUTO) 2.1 /CMM (0.8-4.8); LYMPHOCYTES % (AUTO) 19.7 % (20.0-44.0); MEAN CORPUSCULAR HEMOGLOBIN 32 PG (26.0-33.0); MEAN CORPUSCULAR HGB CONC 32 g/dl (31.0-36.0); MEAN CORPUSCULAR VOLUME 101 fL (82-100); MONOCYTES # (AUTO) 0.7 /CMM (0.1-1.30); MONOCYTES % (AUTO) 6.7 % (2.0-12.0); NEUTROPHILS # (AUTO) 7.8 /CMM (1.8-8.9); NEUTROPHILS % (AUTO) 72.3 % (43.0-81.0); PLATELET COUNT (AUTO) 224 /CMM (150-450); RDW COEFFICIENT OF VARIATION 16.9 (11.5-15.0); RED BLOOD CELL COUNT(AUTO) 3.39 MIL/uL (4.0-5.2); WHITE BLOOD COUNT (AUTO) 10.8 K/uL (4.3-11.0)
[2018-04-04 06:48] LABS: CALCIUM, SERUM 8.7 mg/dL (8.5-10.1); CARBON DIOXIDE 24 mmol/L (21-32); CHLORIDE 113 mmol/L (98-107); CREATININE 1.7 mg/dL (0.6-1.3); GLUCOSE 67 mg/dL (74-106); POTASSIUM 3.8 mmol/L (3.5-5.1); SODIUM SERUM 144 mmol/L (136-145); UREA NITROGEN, BLOOD 42 mg/dL (7-18)
[2018-04-04 07:20] LABS: THYROID STIMULATING HORMONE 6.124 uIU/mL (0.358-3.74); URIC ACID 7.6 mg/dL (2.6-7.2)
--- NOTE | 2018-04-04 07:36 | NUR ---
MS/RN NOTES PT. IS LYING IN BED RESTING. BREATHING EVEN AND UNLABORED ON 2LPM O2 VIA NC. NO SOB, RESPIRATORY DISTRESS OR COMPLAINTS OF PAIN NOTED AT THIS TIME. PT. WITH RIGHT UPPER ARM 22 GAUGE PERIPHERAL IV PRESENT, PATENT AND INTACT ADMINISTERING TO PT. NS @ 80ML/HR. ALL PT. NEEDS MET. BED LOCKED AND IN LOWEST POSITION, SIDE RAILS UP X3, BED ALARM ON, WILL ENDORSE TO DAYSHIFT NURSE FOR CONTINUITY OF CARE.
[2018-04-04 08:00] VITALS: BP 128/80
--- NOTE | 2018-04-04 08:00 | NUR ---
rn notes received patient in the bed sleeping. patient on o2-2l nc, no acute respiratory distress. patient open eyes when called name or touched, 1:1 sitter next to the bed for safety. infusing ns at 80 ml/he intact. patient incontinent using diaper, assist turn and reposition q 2 hr. call light within to reach. continued monitoring.
--- NOTE | 2018-04-04 09:00 | NUR ---
RN NOTES SCHEDULED MEDICATION ADMINISTERED, NO ACUTE RESPIRATORY DISTRESS, PATIENT STABLE AT THIS TIME. 1:1 SITTER NEXT TO THE BED FOR SAFETY. CONTINUED MONITORING.
[2018-04-04] MEDS: ALLOPURINOL 100 MG TABLET PO SCH (09:14)
[2018-04-04] MEDS: SERTRALINE HCL 25 MG TABLET PO SCH (09:14)
[2018-04-04] MEDS: FAMOTIDINE/PF INJ 20 MG/2 ML VIAL IV SCH (09:14)
[2018-04-04] MEDS: CHOLECALCIFEROL 1,000 UNIT TABLET (VIT D3) PO SCH (09:14)
[2018-04-04 09:15] VITALS: BP 128/80
[2018-04-04] MEDS: METOPROLOL SUCCINATE 25 MG TAB.SR.24H PO SCH (09:15)
[2018-04-04] MEDS: ASPIRIN 81 MG TAB.CHEW PO SCH (09:15)
[2018-04-04] MEDS: PANTOPRAZOLE 40 MG TABLET.DR PO SCH (09:17)
[2018-04-04] MEDS: MEROPENEM 500 MG in IV NS 0.9% 50 ML IV SCH (09:17)
--- NOTE | 2018-04-04 12:00 | NUR ---
RN NOTES PATIENT GOING TO D/C [facility], GET D/C ORDER FROM Dr NORMAN. CONTINUED MONITORING.
--- NOTE | 2018-04-04 15:35 | NUR ---
DISCHARGE NOTES PATIENT DISCHARGE AT THIS TIME GOING [facility]. PATIENT A/O X1, NICELY CONFUSED, FORGETFUL. PATIENT MED COMPLIANT, V/S STABLE, NO ACUTE RESPIRATORY DISTRESS ON O2-2LNC, MEDICALLY STABLE, IV ON RIGHT UPPER ARM. MED RECONCILIATION AND DISCHARGE ORDER REVIEWED AND EXPLAINED TO. REPORT GIVEN SLIDE MACHINE TENDER. RN VERBALIZED UNDERSTANDING. BELONGING RETURNED TO THE PATIENT. PATIENT UNABLE TO SIGN PAPERWORK, COSIGNED WITH ANOTHER RN JAYCOB. FAMILY AWARE OF PATIENT DISCHARGE ORDERS. PATIENT IT NETWORK ENGINEER BY AMBULANCE, PICTURE TAKEN. PATIENT WILL FOLLOW DR NORMAN ON REHAB.
== END 2018-04-04 15:35 | DRG 871 ==
LOC: ER 17:18 → MED 21:25
PROVIDERS: ADMIT Internal Medicine Hematology & Oncology; ATTEND Internal Medicine Hematology & Oncology
DX: A41.9 Sepsis, unspecified organism (principal); J18.9 Pneumonia, unspecified organism; G93.40 Encephalopathy, unspecified; J44.1 Chronic obstructive pulmonary disease with (acute) exacerbation; N39.0 Urinary tract infection, site not specified; N17.9 Acute kidney failure, unspecified; J44.0 Chronic obstructive pulmonary disease with (acute) lower respiratory infection; R65.20 Severe sepsis without septic shock; G62.9 Polyneuropathy, unspecified; F03.90 Unspecified dementia, unspecified severity, without behavioral disturbance, psychotic disturbance, mood disturbance, and anxiety; G30.9 Alzheimer's disease, unspecified; F02.80 Dementia in other diseases classified elsewhere, unspecified severity, without behavioral disturbance, psychotic disturbance, mood disturbance, and anxiety; N18.3 Chronic kidney disease, stage 3 (moderate); I35.0 Nonrheumatic aortic (valve) stenosis; I12.9 Hypertensive chronic kidney disease with stage 1 through stage 4 chronic kidney disease, or unspecified chronic kidney disease; Z88.0 Allergy status to penicillin; Z87.891 Personal history of nicotine dependence; Z87.01 Personal history of pneumonia (recurrent); Z99.81 Dependence on supplemental oxygen; B96.20 Unspecified Escherichia coli [E. coli] as the cause of diseases classified elsewhere; Z16.12 Extended spectrum beta lactamase (ESBL) resistance; R53.1 Weakness; E79.0 Hyperuricemia without signs of inflammatory arthritis and tophaceous disease; D63.8 Anemia in other chronic diseases classified elsewhere
CPT/HCPCS: 36415; 71045-TC; 80048-TC; 80053-TC; 80076-TC; 80202-TC; 81000-TC; 82306; 82728-TC; 82746; 83540-TC; 83605-TC; 83615-TC; 84443-TC; 84550-TC; 85025-TC; 85652-TC; 85730-TC; 87040-TC; 87081-TC; 87086-TC; 87186-TC; 97110-TC; 97116-TC; 97530-TC; A4216; A4606; J0743; J1956; J2060; J2185; J2405; J3490; J7030; J7040; Z7610

== ENCOUNTER 2018-08-18 08:00 | Inpatient (IN) | payer MEDICARE, MEDICAID ==
[~2018-08-18] VITALS: Ht 165.1 cm; Wt 54.4 kg
--- NOTE | 2018-08-18 08:08 | NUR ---
DR ADAME AT BEDSIDE FOR EVAL.
[2018-08-18] MEDS ORDERED: ONDANSETRON HCL/PF 4 MG/2 ML VIAL ONE (08:18)
--- NOTE | 2018-08-18 08:18 | NUR ---
IV LINE STARTED BLOOD DRAWN AND SENT TO LAB.
[2018-08-18] MEDS ORDERED: MORPHINE SULFATE INJ 4 MG/ML DISP.SYRIN ONE (08:19)
--- NOTE | 2018-08-18 08:21 | NUR ---
RADIOLOGY AT BEDSIDE FOR L HIP AND CHEST XRAY.
[2018-08-18 08:23] LABS: BASOPHILS % (AUTO) 0.2 % (0.0-2.0); EOSINOPHILS % (AUTO) 0.2 % (0.0-6.0); HEMATOCRIT 36 % (33-45); HEMOGLOBIN 11.7 g/dL (11.5-14.8); LYMPHOCYTES # (AUTO) 1.8 /CMM (0.8-4.8); LYMPHOCYTES % (AUTO) 8.4 % (20.0-44.0); MEAN CORPUSCULAR HGB CONC 32 g/dl (31.0-36.0); MEAN CORPUSCULAR VOLUME 98 fL (82-100); MONOCYTES # (AUTO) 1.2 /CMM (0.1-1.30); MONOCYTES % (AUTO) 5.5 % (2.0-12.0); NEUTROPHILS # (AUTO) 18.5 /CMM (1.8-8.9); NEUTROPHILS % (AUTO) 85.7 % (43.0-81.0); PLATELET COUNT (AUTO) 231 /CMM (150-450); WHITE BLOOD COUNT (AUTO) 21.6 K/uL (4.3-11.0)
[2018-08-18] MEDS ORDERED: ONDANSETRON HCL/PF 4 MG/2 ML VIAL IV ONE (08:30)
[2018-08-18] MEDS ORDERED: MORPHINE SULFATE INJ 2 MG/ML DISP.SYRIN IV ONE (08:30)
[2018-08-18 08:40] LABS: CALCIUM, SERUM 9.3 mg/dL (8.5-10.1); CARBON DIOXIDE 33 mmol/L (21-32); CHLORIDE 102 mmol/L (98-107); CREATININE 1.6 mg/dL (0.6-1.3); GLUCOSE 102 mg/dL (74-106); POTASSIUM 3.8 mmol/L (3.5-5.1); SODIUM SERUM 141 mmol/L (136-145); UREA NITROGEN, BLOOD 51 mg/dL (7-18)
[2018-08-18] MEDS ORDERED: CEFTRIAXONE 1GM BAG (ER ONLY) 50 ML IV ONE ×2 (08:45→09:00)
[2018-08-18] MEDS ORDERED: IV NS 0.9% 1,000 ML BAG IV ONE (09:00)
[2018-08-18] MEDS ORDERED: DIPH1TAB PO (09:12)
[2018-08-18] MEDS ORDERED: MONT10TA22 PO (09:12)
[2018-08-18] MEDS ORDERED: FURO-144 PO (09:12)
[2018-08-18] MEDS ORDERED: FLUT1BLS IH (09:12)
[2018-08-18] MEDS ORDERED: PRED2.5T PO (09:12)
[2018-08-18] MEDS ORDERED: FLUT10.62 IH (09:12)
[2018-08-18] MEDS ORDERED: SPIR25TA PO (09:12)
[2018-08-18] MEDS ORDERED: PANT40TA2 PO (09:12)
[2018-08-18] MEDS ORDERED: MIRT15TA7 PO (09:12)
[2018-08-18 09:52] LABS: APPEARANCE,URINE CLEAR (CLEAR); BILIRUBIN,URINE NEGATIVE (NEGATIVE); BLOOD, URINE TRACE-INTA Ery/uL (NEGATIVE); COLOR,URINE YELLOW (YELLOW); KETONES,URINE NEGATIVE (NEGATIVE); LEUKOCYTE ESTERASE ,URINE NEGATIVE (NEGATIVE); NITRITE, URINE NEGATIVE (NEGATIVE); PROTEIN,URINE NEGATIVE (NEGATIVE); UGLUCOSE NEGATIVE (NEGATIVE); UROBILINOGEN,URINE 0.2 EU/dL (0.2)
[2018-08-18 09:59] LABS: BACTERIA,URINE Rare /HPF (None Seen); WBC,URINE 0-2 /HPF (0-3)
--- NOTE | 2018-08-18 10:35 | NUR ---
PAGED [facility]THO [phone], DR. GRIER ON-CALL.
--- NOTE | 2018-08-18 10:43 | NUR ---
PAGED DR. NORMAN.
--- NOTE | 2018-08-18 11:03 | NUR ---
DR. NORMAN PAGED 2ND TIME.
--- NOTE | 2018-08-18 11:54 | NUR ---
REPORT GIVEN TO MARLENI MOHAN. PT AWAITING TRANSFER TO FLOOR.
[2018-08-18 13:00] VITALS: BP 122/86
--- NOTE | 2018-08-18 13:00 | NUR ---
BLACKTOP PAVER OPERATORPERSONAL HEALTH COACH NOTE RECEIVED [place] [facility] [place] OF LEFT HIP FRACTURE. PT IS ALERT AND ORIENTED X1. VS STABLE, BREATHING IS EVEN AND UNLABORED ON 2LNC. PT PLACED ON PRODUCE SERVICE TEAM MEMBER AND IS SINUS RHYTHM, HR 80'S. R AC #20G IVS IS PATENT, CLEAN, DRY, AND INTACT. MACK CATHETER NOTED TO BE DRAINING CLEAR, YELLOW URINE. NEUROVASCULAR STATUS INTACT, PT ABLE TO WIGGLE TOES, PEDAL PULSES STRONG AND EQUAL BILATERALLY. WOUND DOCUMENTATION COMPLETE PER PROTOCOL. ALL BELONGINGS ACCOUNTED FOR AND BELONGING LIST SIGNED AND PLACED IN CHART. AWAITING ADMISSION ORDERS AND ORTHO CONSULTATION.
--- NOTE | 2018-08-18 13:30 | NUR ---
COTTON MACHINE OPERATOR DR. NORMAN AT THE BEDSIDE DR. NORMAN AT THE BEDSIDE TO EVALUATE PT. PENDING ADMISSION ORDERS
--- NOTE | 2018-08-18 15:20 | NUR ---
HORTICULTURAL FARM MANAGERTEXTILE MACHINERY INSTRUCTOR ORDERED CONTACTED DR. NORMAN REGARDING ADMISSION ORDERED, PER HE WILL PLACE ORDERS "LATER". OBTAINED ORDER FOR CARDIAC DIET AND NPO @ MIDNIGHT.
[2018-08-18 16:00] VITALS: BP 102/53
--- NOTE | 2018-08-18 16:00 | NUR ---
PAGE MAKEUP SYSTEM OPERATOR CONSENT THE NURSE PRESENT WITH SISTER PRATIMA WHO SPOKE WITH DR. GRIER SPOKE VIA PHONE REGARDING SCHEDULED SURGERY TOMORROW. CONSENT OBTAINED FROM SISTER PRATIMA AND PLACED IN CHART.
--- NOTE | 2018-08-18 16:25 | NUR ---
BUSINESS AND SERVICES INSTRUCTORCOVER SEAMER ORDERS RECEIVED ADMISSION ORDERS FROM CLINICAL SUPPORT ASSOCIATE DR. KNIGHT WILL INITIATE ORDERS. Addendum: 08/18/18 at 1902 by MARLENI RIZO RN ERROR, WRONG TIME, PLEASE DISREGARD
--- NOTE | 2018-08-18 17:50 | NUR ---
BAKERY TECHNICIANAUTO BUMPER STRAIGHTENER ORDERED CONTACTED DR. NORMAN AGAIN REGARDING ADMISSION ORDERS. INFORMED BY DR. NORMAN TO CONTACT THE ON-CALL DOCTOR BECAUSE HE IS UNABLE TO PLACE ORDERS AT THIS TIME. PAGED WATER TREATMENT PLANT ENGINEER DOCTOR AT [phone] AND SENT TO VOICEMAIL. LEFT VOICEMAIL INFORMING OF SITUATION AND NEED FOR ADMISSION ORDERS SINCE PT HAS BEEN HERE SINCE 1PM. CHARGE NURSE ANDREW SCOTT.
[2018-08-18] MEDS ORDERED: ALBUTEROL FS 2.5 MG/0.5 ML VIAL.NEB NEB STA (18:25)
--- NOTE | 2018-08-18 18:25 | NUR ---
TANK PUMPERFIELD INSTALLER ORDERS RECEIVED ADMISSION ORDERS FROM GORE INSERTER DR. KNIGHT WILL INITIATE ORDERS
[2018-08-18] MEDS ORDERED: ALBUTEROL FS 2.5 MG/0.5 ML VIAL.NEB NEB PRN (18:30)
[2018-08-18] MEDS ORDERED: ONDANSETRON HCL/PF 4 MG/2 ML VIAL IV PRN (18:30)
--- NOTE | 2018-08-18 18:37 | NUR ---
FACING END TRIMMER NOTE INFORMED BY CHARGE NURSE ANDREW THAT DR. NORMAN CALLED AND ORDERED HYDROCORTISONE 50MG IV Q8H FOR 36H STARTING TODAY FOLLOWED BY PREDNISONE 20MG PO QDAY. UPON ENTERING ORDERS, HYDROCORTISONE SOD SUCCINATE IS AVAILABLE IV, INFORMED BY PHARMACIST TO CLARIFY ORDER WITH DR. NORMAN FIRST. CONTACTED DR. NORMAN, AWAITING RESPONSE.
[2018-08-18] MEDS: IV D5/0.45 NACL 1,000 ML IV PRN (18:53)
--- NOTE | 2018-08-18 19:15 | NUR ---
SUPERVISOR TELEVISION CHASSIS REPAIR OPENING NOTES: RECEIVED PT ON NONREBREATHER MASK. RTS AT BEDSIDE OBTAINING STAT ABG PER MD ORDER. PT IS A/OX1. PT HAS EYES OPEN. PT HAS MACK CATH AND IS ATTACHED TO DRAINAGE BAG WITH YELLOW URINE DRAINING. BED ALARM ACTIVATED. PT ON TELE BOX AND READING SHOWS SR 94. BED KEPT IN LOW, LOCKED POSITION, AND SIDE RAILS X 2UP. WILL CONTINUE TO MONITOR PT. Addendum: 08/18/18 at 1932 by DARYL EMERSON RN PT ALSO HAS IV AND IS BEING INFUSED WITH IV D5 12 NS AT 60ML/HR.
[2018-08-18 19:25] LABS: ABG BASE EXCESS 2.4 mmol/L; ABG OXYGEN SATURATION 98.6 % (92.0-98.5); ABG PCO2 54.2 mmHg (35.0-45.0); ABG PH 7.346 (7.350-7.450); ABG PO2 360.3 mmHg (75.0-100.0); AaDO2 298.5 mmHg; COHb 0.1 % (0.5-1.5); MetHb 0.4 % (0.0-1.5); O2Hb 98.1 % (94.0-97.0); SITE, ABG Left Radial
[2018-08-18] MEDS: ALBUTEROL FS 2.5 MG/0.5 ML VIAL.NEB NEB SCH ×2 (19:30→22:51)
--- NOTE | 2018-08-18 19:30 | NUR ---
MANAGER LICENSING CLOSING NOTE PT IN BED, ALERT AND ORIENTED X1. NO ACUTE DISTRESS NOTED AT THIS TIME. DENIES N/V, CHEST PAIN, SOB. BREATHING IS EVEN AND UNLABORED ON 3 LNC. PT ON RATTLE LEAK AND SQUEAK REPAIRER, SINUS RHYTHM WITH PERIODS OF SINUS TACH. R AC#20G IV IS PATENT, CLEAN, DRY AND INTACT. MACK CATHETER NOTED TO BE DRAINING CLEAR, YELLOW URINE. NEUROVASCULAR STATUS INTACT. PT SCHEDULED FOR L HIP [facility] ARTHROPLASTY TOMORROW MORNING WITH DR. GRIER, CONSENT SIGNED AND PLACED IN CHART, PT STILL PENDING CARDIAC CLEARANCE. ALL NEEDS ATTENDED TO. BED IS LOCKED AND IN LOWEST POSITION, SIDE RAILS UP X3, BED ALARM ON, CALL LIGHT WITHIN REACH. WILL ENDORSE TO REFINERY OPERATOR VAPOR RECOVERY UNIT RN FOR CONTINUITY OF CARE.
--- NOTE | 2018-08-18 19:31 | NUR ---
UNIT AIDE NOTES: RT PLACED PT ON 3LPM VIA NC.
--- NOTE | 2018-08-18 19:41 | NUR ---
RT NOTE BREATHING TX ALREADY ADMINISTERED. MARQUES DOE NOTIFIED AND AWARE.
[2018-08-18 20:00] VITALS: BP 127/65
--- NOTE | 2018-08-18 20:15 | NUR ---
LINE SERVICE ATTENDANT NOTES: SAW ORDER PER DR. NORMAN CONFIRMATION FOR IV HYDROCORTISONE SOD SUCCINATE 50MG IV Q8HR FOR 36 HRS AND THEN FOLLOWED BY PREDNISONE 20MG PO QDAY.
[2018-08-18] MEDS: HYDROCORTISONE SOD SUCCINATE 100 MG/2 ML VIAL IV SCH (20:42)
--- NOTE | 2018-08-18 21:00 | NUR ---
SURFACER NOTES: COOLING MEASURES APPLIED PT'S TEMPERATURE IS CLOSE TO 100.
--- NOTE | 2018-08-18 22:17 | NUR ---
MINOR LEAGUE BASEBALL PLAYER NOTES: SPOKE WITH ERROL VALIENTE. GOT PRN ORDER FOR TYLENOL 650MG PO Q4HR PRN PO ; ALSO INFORMED HER THAT PT IS TO BE NPO POST MIDNIGHT. ALSO GOT ORDER FOR TYLENOL 650MG SUPPOSITORY Q4HR PRN TEMP 100.5 AND ABOVE. WILL CONTINUE TO MONITOR PT. Addendum: 08/18/18 at 2226 by DARYL EMERSON RN BROUGHT UP MED RECON WELL. PER ERROL VALIENTE, WILL HAVE ROUNDING DOCTOR DO IT INSTEAD. ALL MEDS WILL BE HELD FOR PREOP.
[2018-08-18] MEDS ORDERED: ACETAMINOPHEN 650 MG/SUPP.RECT RC PRN (22:30)
[2018-08-18] MEDS: ACETAMINOPHEN 325 MG TABLET PO PRN (23:23)
--- NOTE | 2018-08-18 23:26 | NUR ---
RECREATIONAL AIDE NOTES: TEMPERATURE RECHECKED AND EVEN WITH COOLING MEASURES, PT'S TEMPERATURE IS TRENDING UP. ORAL TEMP WAS 100.6. PT WAS ADMINISTERED TYLENOL 650MG PO. COOLING MEASURES CONTINUED WELL. WILL CONTINUE TO MONITOR PT.
[2018-08-19] VITALS: BP 107/65
[2018-08-19] MEDS: ALBUTEROL FS 2.5 MG/0.5 ML VIAL.NEB NEB SCH ×6 (03:14→23:46)
[2018-08-19 04:00] VITALS: BP 112/69
[2018-08-19] MEDS: HYDROCORTISONE SOD SUCCINATE 100 MG/2 ML VIAL IV SCH ×2 (04:08→13:13)
[2018-08-19] MEDS: MORPHINE SULFATE INJ 4 MG/ML DISP.SYRIN IV PRN ×2 (04:25→23:15)
--- NOTE | 2018-08-19 04:25 | NUR ---
DEPARTMENTAL SHIPPING CLERK NOTES: PT ADMINISTERED MORPHINE 2MG IV D/T L HIP PAIN AFTER REPOSITIONING PATIENT. OTHER 2MG OF MORPHINE WAS WASTED WITH ANOTHER RN, IGOR. WILL CONTINUE TO MONITOR PT.
[2018-08-19 06:03] VITALS: BP 105/62
--- NOTE | 2018-08-19 06:25 | NUR ---
TRAVEL CLERK CLOSING NOTES: ALL NEEDS WERE ATTENDED AND ANTICIPATED FOR. PT KEPT CLEAN, DRY, AND COMFORTABLE. PT ON 2LPM VIA NC AND IS TOLERATING WELL. PT ON HIGH MULLEN'S POSITION. PT HAS IV ON R AC #20G AND IS BEING INFUSED WITH IV D5 1/2 NS AT 60ML/HR.PT HAS MACK CATH AND IS ATTACHED TO DRAINAGE BAG WITH YELLOW URINE DRAINING. OUTPUT WAS 400ML. BED ALARM ACTIVATED. PT HAS BEEN NPO SINCE MIDNIGHT. PT TO GO FOR SURGERY AT 0830. CONSENTS PLACED IN CHART. PT ON TELE BOX AND READING SHOWS SR 84. CALL LIGHT WITHIN PT'S REACH. BED KEPT IN LOW, LOCKED POSITION, AND SIDE RAILS X 2UP. WILL ENDORSE TO AM NURSE FOR KASIA. Addendum: 08/19/18 at 0646 by DARYL EMERSON RN UPPER DENTURES REMOVED AND PLACED IN CONTAINER CUP WITH LABEL. GLASSES WELL. BOTH PLACED AT BEDSIDE WITH LABEL PROVIDED.
--- NOTE | 2018-08-19 07:30 | NUR ---
GUTTER HANGER OPENING NOTES PATIENT IS IN STABLE CONDITION. IN NO APPARENT DISTRESS. BEDSIDE RAILS ARE UPX2. BED IS LOCKED AND LOWERED. CALL LIGHT IS WITHIN REACH. IV LINE IS INTACT AND PATENT. WILL CONTINUE TO MONITOR PATIENT.
[2018-08-19 08:00] VITALS: BP 109/58
[2018-08-19] MEDS ORDERED: BACITRACIN 50000 UNITS/VIAL ONE ×3 (08:47)
[2018-08-19] MEDS ORDERED: BUPIVACAINE MPF 0.5% W/EPI INJ 30 ML VIAL ONE (08:47)
[2018-08-19] MEDS ORDERED: ROCURONIUM BROMIDE 50 MG/5 ML ONE (09:01)
[2018-08-19] MEDS ORDERED: CLINDAMYCIN 900 MG/6 ML VIAL ONE (09:02)
[2018-08-19] MEDS ORDERED: ALBUTEROL FS 2.5 MG/3 ML VIAL.NEB ONE (12:03)
[2018-08-19 12:55] LABS: HEMATOCRIT 33 % (33-45); HEMOGLOBIN 10.3 g/dL (11.5-14.8); LYMPHOCYTES # (AUTO) 0.7 /CMM (0.8-4.8); LYMPHOCYTES % (AUTO) 3.2 % (20.0-44.0); MEAN CORPUSCULAR HGB CONC 32 g/dl (31.0-36.0); MEAN CORPUSCULAR VOLUME 101 fL (82-100); MONOCYTES # (AUTO) 0.4 /CMM (0.1-1.30); MONOCYTES % (AUTO) 1.9 % (2.0-12.0); NEUTROPHILS # (AUTO) 20.7 /CMM (1.8-8.9); NEUTROPHILS % (AUTO) 94.9 % (43.0-81.0); PLATELET COUNT (AUTO) 182 /CMM (150-450); RED BLOOD CELL COUNT(AUTO) 3.21 MIL/uL (4.0-5.2); WHITE BLOOD COUNT (AUTO) 21.8 K/uL (4.3-11.0)
[2018-08-19 16:00] VITALS: BP 108/58
[2018-08-19] MEDS: HYDROCODONE/APAP 5/325MG 1 EACH TABLET PO PRN (16:00)
--- NOTE | 2018-08-19 19:00 | NUR ---
GRAVE DIGGER CLOSING NOTES PATIENT IS IN STABLE CONDITION. IN NO APPARENT DISTRESS. BEDSIDE RAILS ARE UPX2. BED IS LOCKED AND LOWERED. CALL LIGHT IS WITHIN REACH. IV LINE IS INTACT AND PATENT. ALL NEEDS WERE MET. WILL ENDORSE CARE TO JOB LITHOGRAPHER NURSE FOR KASIA.
--- NOTE | 2018-08-19 19:30 | NUR ---
MS/RN RECEIVE PATIENT AWAKE, ALERT, CONFUSED, COMFORTABLE, NO DISTRESS NOTED, S/O LEFT HEMIARTHROPLASTY, DRESSING CLEAN AND INTACT NO BLEEDING NOTE, ABDUCTION PILLOW IN PLACE, FALL PRECAUTION. WILL MONITOR.
[2018-08-19] MEDS: IV D5/0.45 NACL 1,000 ML IV PRN (19:44)
[2018-08-19 20:00] VITALS: BP 111/55
[2018-08-19] MEDS: VANCOMYCIN 1 GM in IV D5W 250ml IV SCH (21:10)
--- NOTE | 2018-08-19 21:16 | NUR ---
MS/RN IV LEAKING, REMOVED IV, INSERTED NEW IV AT RT. F/A G22.
[2018-08-19] MEDS: ATORVASTATIN 10 MG TABLET PO SCH (22:00)
[2018-08-19] MEDS: predniSONE 20 MG TABLET PO SCH (22:00)
--- NOTE | 2018-08-20 00:19 | NUR ---
MS/RN PATIENT IS VERY CONFUSED AND AGITATED AT THIS TIME, TRYING TO PULL OUT IV, F/C AND ABDUCTION PILLOW. WILL CLOSELY MONITOR PATIENT FOR SAFETY.
--- NOTE | 2018-08-20 01:00 | NUR ---
MS/RN PATIENT APPEAR SLEEPING, CALM AND COMFORTABLE, NO SIGNS OF DISTRESS NOTED, WILL CONTINUE TO MONITOR CLOSELY FOR SAFETY.
[2018-08-20] MEDS ORDERED: ENOXAPARIN SODIUM 40 MG/0.4 ML DISP.SYRIN SQ SCH (02:30)
[2018-08-20] MEDS: ALBUTEROL FS 2.5 MG/0.5 ML VIAL.NEB NEB SCH ×6 (03:30→23:17)
--- NOTE | 2018-08-20 06:13 | NUR ---
MS/RN PATIENT IS AWAKE, CALM AND COMFORTABLE, NO DISTRESS NOTED, DRESSING TO LEFT HIP INTACT AND DRY, F/C IN PLACE, ABDUCTION PILLOW IN PLACE, ALL NEEDS ATTENDED AT THIS TIME, WILL CONTINUE TO MONITOR.
--- NOTE | 2018-08-20 07:24 | NUR ---
MS RN OPENING NOTES RECEIVED PATIENT IN STABLE CONDITION. BED SIDE RAILS UP X2. BED IS LOCKED AND LOWERED. CALL LIGHT IS WITHIN REACH. IV LINE IS INTACT AND PATENT. MACK CATHETER IS IN PLACE AND DRAINING. WILL CONTINUE TO MONITOR PATIENT.
[2018-08-20 07:52] LABS: BASOPHILS % (AUTO) 0.1 % (0.0-2.0); HEMATOCRIT 24 % (33-45); HEMOGLOBIN 7.9 g/dL (11.5-14.8); LYMPHOCYTES % (AUTO) 4.9 % (20.0-44.0); MEAN CORPUSCULAR HGB CONC 32 g/dl (31.0-36.0); MEAN CORPUSCULAR VOLUME 99 fL (82-100); MONOCYTES # (AUTO) 0.8 /CMM (0.1-1.30); NEUTROPHILS # (AUTO) 18.9 /CMM (1.8-8.9); PLATELET COUNT (AUTO) 178 /CMM (150-450); RED BLOOD CELL COUNT(AUTO) 2.47 MIL/uL (4.0-5.2); WHITE BLOOD COUNT (AUTO) 20.7 K/uL (4.3-11.0)
[2018-08-20 08:04] LABS: ALANINE AMINOTRANSFERASE 14 U/L (12-78); ALBUMIN 2.2 g/dL (3.4-5.0); ALKALINE PHOSPHATASE 69 U/L (46-116); ASPARTATE AMINOTRANSFERASE 22 U/L (15-37); BILIRUBIN,TOTAL 0.3 mg/dL (0.2-1.0); CALCIUM, SERUM 8.6 mg/dL (8.5-10.1); CARBON DIOXIDE 28 mmol/L (21-32); CHLORIDE 104 mmol/L (98-107); CREATININE 1.5 mg/dL (0.6-1.3); GLUCOSE 116 mg/dL (74-106); MAGNESIUM 1.3 mg/dL (1.8-2.4); PHOSPHORUS 3.6 mg/dL (2.5-4.9); POTASSIUM 4.3 mmol/L (3.5-5.1); SODIUM SERUM 138 mmol/L (136-145); TOTAL PROTEIN, SERUM 5.6 g/dL (6.4-8.2); UREA NITROGEN, BLOOD 40 mg/dL (7-18)
[2018-08-20] MEDS ORDERED: RIVAROXABAN 10 MG TABLET PO SCH (09:00)
[2018-08-20] MEDS: CHOLECALCIFEROL 1,000 UNIT TABLET (VIT D3) PO SCH (09:16)
[2018-08-20] MEDS: SERTRALINE HCL 25 MG TABLET PO SCH (09:16)
[2018-08-20] MEDS: predniSONE 20 MG TABLET PO SCH (09:17)
[2018-08-20] MEDS: ALLOPURINOL 100 MG TABLET PO SCH (09:17)
[2018-08-20] MEDS: PANTOPRAZOLE 40 MG TABLET.DR PO SCH (09:19)
[2018-08-20] MEDS: MONTELUKAST SODIUM (10MG) 10 MG TABLET PO SCH (09:19)
[2018-08-20] MEDS: SPIRONOLACTONE 25 MG TABLET PO SCH (09:19)
[2018-08-20] MEDS: FUROSEMIDE 40 MG TABLET PO SCH (09:19)
[2018-08-20] MEDS: METOPROLOL SUCCINATE 25 MG TAB.SR.24H PO SCH (09:19)
[2018-08-20] MEDS: FLUTICASONE/VILANTEROL 1 EACH BLST.W.DEV IH SCH (09:19)
[2018-08-20] MEDS: VANCOMYCIN 1 GM in IV D5W 250ml IV SCH (10:18)
[2018-08-20] MEDS: Magnesium 1GM/D5W 100ML PREMIX 100 ML IV SCH ×2 (11:27→12:37)
[2018-08-20] MEDS ORDERED: ENOXAPARIN SODIUM 30 MG/0.3 ML DISP.SYRIN SQ SCH (12:00)
[2018-08-20] MEDS: HYDROCODONE/APAP 5/325MG 1 EACH TABLET PO PRN ×2 (16:03→21:25)
--- NOTE | 2018-08-20 19:10 | NUR ---
MS/RN OPENING NOTES PT RECEIVED AWAKE, A/OX2. SITTER AT BEDSIDE. ON 2L O2 VIA NC, BREATHING EVEN AND UNLABORED. NO SOB NOTED, DENIES PAIN AT THIS TIME. MACK IN PLACE AND DRAINING TO GRAVITY. WILL REMOVE TONIGHT PER MD ORDER. IV TO RFA PATENT AND INTACT RUNNING IVF ORDERED. BED IN LOW/LOCKED POSITION WITH CALL LIGHT IN REACH, SIDE RAILS UP X3. IN NO ACUTE DISTRESS. WILL CONTINUE TO MONITOR
--- NOTE | 2018-08-20 19:27 | NUR ---
MS RN CLOSING NOTES PATIENT IS IN STABLE CONDITION. IN NO APPARENT DISTRESS. BEDSIDE RAILS ARE UPX2. BED IS LOCKED AND LOWERED. MACK CATHETER IS IN PLACE AND DRAINING. TO BE REMOVED DURING SENIOR PAYROLL SPECIALIST. ALL NEEDS WERE MET. WILL ENDORSE CARE TO SENIOR PAYROLL SPECIALIST NURSE FOR KASIA.
[2018-08-20 20:00] VITALS: BP 121/73
[2018-08-20] MEDS: IV D5/0.45 NACL 1,000 ML IV PRN (21:24)
[2018-08-20] MEDS: ATORVASTATIN 10 MG TABLET PO SCH (21:25)
[2018-08-21] MEDS: ALBUTEROL FS 2.5 MG/0.5 ML VIAL.NEB NEB SCH ×6 (03:01→23:55)
--- NOTE | 2018-08-21 06:57 | NUR ---
MS/RN CLOSING NOTES PT AWAKE, HOB ELEVATED. 2L O2 VIA NC, BREATHING EVEN AND UNLABORED. NO SOB OR PAIN NOTED AT THIS TIME. SITTER AT BEDSIDE. ABDUCTOR PILLOW IN PLACE. MACK REMOVED. IV TO RAC PATENT AND INTACT RUNNING IVF ORDERED. MD TO CHANGE DRESSING. WOUND CONSULT PENDING. TURNED/REPOSITIONED Q2H. PAIN MEDS PROVIDED PRN. BED IN LOW/LOCKED POSITION WITH CALL LIGHT IN REACH. BILATERAL UPPER SIDE RAILS IN PLACE. BED ALARM ON FOR SAFETY. WILL ENDORSE TO DAY SHIFT RN KASIA.
--- NOTE | 2018-08-21 07:30 | NUR ---
RN OPENING NOTES RECEIVED PATIENT AWAKE, HOB ELEVATED, CONFUSED. 2L O2 VIA NC, BREATHING EVEN AND UNLABORED. NO SOB OR PAIN NOTED AT THIS TIME. TRYING TO PULL OUT IV LINES, SITTER AT BEDSIDE FOR SAFETY. ABDUCTOR PILLOW IN PLACE. IV TO RAC PATENT AND INTACT RUNNING IVF ORDERED. LEFT HIP DRESSING INTACT, MD TO CHANGE DRESSING. KEPT PATIENT SAFE AND COMFORTABLE. BED IN LOW/LOCKED POSITION WITH CALL LIGHT IN REACH. BILATERAL UPPER SIDE RAILS IN PLACE. BED ALARM ON FOR SAFETY. WILL CONTINUE TO MONITOR ACCORDINGLY.
[2018-08-21 07:33] LABS: BASOPHILS % (AUTO) 0.2 % (0.0-2.0); EOSINOPHILS % (AUTO) 0.3 % (0.0-6.0); HEMATOCRIT 22 % (33-45); HEMOGLOBIN 7.1 g/dL (11.5-14.8); LYMPHOCYTES # (AUTO) 2.3 /CMM (0.8-4.8); MEAN CORPUSCULAR HGB CONC 33 g/dl (31.0-36.0); MEAN CORPUSCULAR VOLUME 98 fL (82-100); MONOCYTES # (AUTO) 1.8 /CMM (0.1-1.30); MONOCYTES % (AUTO) 9.5 % (2.0-12.0); PLATELET COUNT (AUTO) 206 /CMM (150-450); RED BLOOD CELL COUNT(AUTO) 2.25 MIL/uL (4.0-5.2); WHITE BLOOD COUNT (AUTO) 19.2 K/uL (4.3-11.0)
[2018-08-21 08:00] VITALS: BP 100/60
[2018-08-21] MEDS: predniSONE 20 MG TABLET PO SCH (08:42)
[2018-08-21] MEDS: MONTELUKAST SODIUM (10MG) 10 MG TABLET PO SCH (08:42)
[2018-08-21] MEDS: PANTOPRAZOLE 40 MG TABLET.DR PO SCH (08:42)
[2018-08-21] MEDS: ALLOPURINOL 100 MG TABLET PO SCH (08:42)
[2018-08-21] MEDS: SERTRALINE HCL 25 MG TABLET PO SCH (08:45)
[2018-08-21] MEDS: ACETAMINOPHEN 325 MG TABLET PO PRN (08:46)
[2018-08-21] MEDS: CHOLECALCIFEROL 1,000 UNIT TABLET (VIT D3) PO SCH (08:46)
[2018-08-21] MEDS: SPIRONOLACTONE 25 MG TABLET PO SCH (08:46)
[2018-08-21] MEDS: FUROSEMIDE 40 MG TABLET PO SCH (08:46)
[2018-08-21] MEDS: FLUTICASONE/VILANTEROL 1 EACH BLST.W.DEV IH SCH (08:53)
[2018-08-21] MEDS: METOPROLOL SUCCINATE 25 MG TAB.SR.24H PO SCH (08:56)
--- NOTE | 2018-08-21 10:00 | NUR ---
PATIENT REMOVED THE DRESSING ON LEFT HIP. PLACED NEW SURGICAL DRESSING ON. PHOTOS TAKEN
--- NOTE | 2018-08-21 10:36 | NUR ---
WOUND CARE CONSULT: PT PRESENTS WITH SKIN TEARS TO BILATERAL ARMS AND SACRAL DEEP TISSUE INJURY WHICH IS INTACT. BRUISING NOTED TO ARMS, LEFT HIP AND LEG, UPPER BACK, PRESENT ON ADMISSION. RECOMMENDATIONS MADE FOR SKIN PROTECTION AND WOUND CARE. DISCUSSED WITH NURSING STAFF. PT NOTED TO BE RESTLESS, AGITATED AND COMBATIVE AT TIMES, OTHER TIMES SHE IS SMILING. ISOFLEX LOW AIRLOSS BED TO BE PLACED. PT IS INCONTINENT. PER NURSING STAFF. PT PULLED OUT MACK CATH. PT NOTED TO BE PICKING AT HER LEFT HIP SURGICAL DRESSING. CURRENT NAILA SCORE IS 13. PT NOTED TO BE THIN AND BONY WITH VERY FRAGILE SKIN. WILL SEE PRN. BRIONES IN AGREEMENT WITH PLAN OF CARE. Addendum: 08/21/18 at 1040 by RAGHAV CERRATO Amended: Links added. Addendum: 08/21/18 at 1125 by RAGHAV CERRATO CORRECTION: PT DID NOT PULL OUT MACK. IT WAS DISCONTINUED PER NURSING STAFF.
[2018-08-21] MEDS ORDERED: Z GUARD REMEDY 2 OZ OINT TP PRN (11:00)
--- NOTE | 2018-08-21 15:00 | NUR ---
THIAGO [facility]S [facility] CHANGED LEFT HIP SURGICAL DRESSING AT BEDSIDE.
[2018-08-21 16:00] VITALS: BP 103/51
[2018-08-21] MEDS: Z GUARD REMEDY 2 OZ OINT TP SCH (16:14)
[2018-08-21] MEDS: IV D5/0.45 NACL 1,000 ML IV PRN (16:14)
[2018-08-21] MEDS: APIXABAN 2.5 MG TABLET PO SCH (18:06)
--- NOTE | 2018-08-21 19:30 | NUR ---
RN CLOSING NOTES PATIENT IN STABLE CONDITION. ALL NEEDS ATTENDED AND PROVIDED. ALL DUE MEDICATIONS GIVEN ORDERED. WOUND CARE RENDERED. TURNED AND REPOSITIONED PATIENT EVERY 2 HRS NEEDED. ABDUCTOR PILLOW IN PLACE. KEPT PATIENT SAFE AND COMFORTABLE. SITTER AT BEDSIDE. BED IN LOW/LOCKED POSITION, SIDERAILS UP, CALL LIGHT IN REACH. BED ALARM ON. ENDORSED TO NIGHT RN FOR KASIA.
--- NOTE | 2018-08-21 19:35 | NUR ---
RN INITIAL NOTES: RECEIVED REPORT FROM VANGIE MOHAN, PT IN BED, SITTER AT BED SIDE, PT CONFUSED, AGITATED, TRYING TO PULL OUT LINES AND SCRATCH HERSELF, VERY AGGRESSIVE. NO CHEMICAL RESTRAINT PER MD. PT S/P LEFT HIP SURGERY ON THE 08/[address] GRIER, LEFT HIP DRESSING CHANGED TODAY BY [facility]ON, LEFT HIP DRESSING NOTED TO HAVE FRESH BLOOD, SCANTY IN AMOUNT, PLACED A MARKED ON IT TO MONITOR THE BLEEDING, ABDUCTION PILLOW IN PLACED, BOTH HEEL OFFLOADED ON ROLLED TOWELS. IV ACCESS PATENT AND FLUSHING WELL, INFUSING WITH D5 1/2 NS AT 60ML/HR. SEEN BY TYPESETTING MACHINE OPERATOR/TENDER WITH RECOMMENDATION FOR [employer] MATTRESS, HOWEVER NOT IN PLACED ACCORDING TO REPORT THEY GOT SO BUSY DURING THE DAY, WILL PLACE KCI MATTRESS WITH THE HELP OF ANOTHER CONFERENCE CENTER COORDINATOR ASIDE FROM SITTER DUE TO PT'S BEHAVIOR AND CONDITION. SAFETY PRECAUTIONS FOR FALL INITIATED, CALL LIGHT IN REACH, WILL CONTINUE MONITORING PT.
[2018-08-21 19:56] VITALS: BP 127/69
[2018-08-21 20:00] VITALS: BP 127/69
[2018-08-21] MEDS: MORPHINE SULFATE INJ 4 MG/ML DISP.SYRIN IV PRN (20:16)
--- NOTE | 2018-08-21 20:18 | NUR ---
PRN MORPHINE: USED FLACC SCALE, OBTAINED SCORE OF 9, PT BEEN CRYING AND RESTLESS, SCREAMING, S/P LEFT HIP SURGERY, WHEN TOUCH THE LEFT HIP LEG AREA PT SCREAM FOR PAIN, PRN MORPHINE 2MG IVP ADMINISTERED AT THIS TIME, VS TAKEN AND RECORDED PRIOR TO ADMINISTERING MEDICATION.WILL CONTINUE TO MONITOR AND REASSESS
[2018-08-21 21:00] VITALS: BP 104/59
[2018-08-21] MEDS ORDERED: MUPIROCIN OINT 2% 22 GM TUBE SCH (21:00)
--- NOTE | 2018-08-21 21:07 | NUR ---
RN NOTES: NOTED SPO2 STEADY ON 89%, PT ON 2L OXYGEN VIA NC, PAGED SPACER TYPE BAR AND SEGMENT MD, SPOKED WITH CHRISTOPHER BERNAL MD TO DO STAT ABG AND CHEST X RAY
--- NOTE | 2018-08-21 21:10 | NUR ---
RN NOTES: RT MADE AWARE OF STAT ABG
--- NOTE | 2018-08-21 21:12 | NUR ---
RN NOTES: XRAY BEING DONE AT BED SIDE
--- NOTE | 2018-08-21 21:15 | NUR ---
RN NOTES: RT APPROACHED ME AND INFORMED THAT DUE TO PT'S BEHAVIOR, PT VERY AGGRESSIVE, COMBATIVE, 2 STAFF RT HOLDING THE PT, 1SITTER AND 1 RN HOLDING HER, IN ORDER TO DRAW BLOOD, UNFORTUNATELY BECAUSE PT'S VERY STRONG AND STILL MANAGE TO MOVE, RT UNABLE TO HOLD THE ARTERY AND DRAW BLOOD, SPO2 93% ON 2L NC, MORE AWAKE, PER RT THEY WILL NOT BE ABLE TO DRAW THE ABG IF PT KEEP ACTING THAT WAY, RELAYED TO CIRCULATION LIBRARIAN MANNING
--- NOTE | 2018-08-21 21:30 | NUR ---
RT NOTE ATTEMPTED TO DRAW ABG. PATIENT IS UNCOOPERATIVE AND COMBATIVE. BEDSIDE SITTER AIDED IN CALMING PATIENT DOWN BUT PATIENT STILL UNCOOPERATIVE AND VERBALLY REFUSING ABG.CALLED ANOTHER RT FOR ASSISTANCE BUT PATIENT STILL REFUSING. PRIMARY NURSE IS AWARE. PATIENT SPO2 96% ON 3LPM. WILL CONTINUE TO MONITOR.
--- NOTE | 2018-08-21 21:34 | NUR ---
RN NOTES: RT UNABL;E TO DRAW BLOOD, WILL CALL ANOTHER RT FOR HELP, SPO2 96% ON 2L NC, PT AWAKE, TALKING,SITTER AT BED SIDE
[2018-08-21] MEDS: ATORVASTATIN 10 MG TABLET PO SCH (22:19)
--- NOTE | 2018-08-21 22:30 | NUR ---
RN NOTES: PLACED ON CONTINUOUS PULSE OXIMETER, PLEASE SEE VS LOG FOR DETAILS
--- NOTE | 2018-08-21 22:41 | NUR ---
rn notes: contacted aviation manager md, relayed about result of chest x ray, and informed about not being able to draw blood for abg, tried by rt multiple times, but unsuccessful, informed that pt receiving breathing treatment q4hrs while awake, and rt giving education for deep breathing coughing exercises. informed md about the blood seen onthe hip dressing, will continue to monitor per md, no order received
[2018-08-22] VITALS (13 sets, daily range): BP systolic 80–126; BP diastolic 44–72
[2018-08-22] MEDS: ALBUTEROL FS 2.5 MG/0.5 ML VIAL.NEB NEB SCH ×6 (03:21→23:01)
--- NOTE | 2018-08-22 06:36 | NUR ---
RN CLOSING NOTES: PT REMAINS ON 2L OXYGEN VIA NC, RESPIRATION EVEN AND UNLABORED, REMAINS CONFUSED, AGGRESSIVE AND COMBATIVE, CURRENTLY SLEEPING AT THIS TIME. SITTER AT BED SIDE. PER MD NO CHEMICAL RESTRAINT, ONLY SITTER. LEFT HIP DRESSING REMAINS WITH OLD BLOOD STAIN. IV ACCESS PATENT AND FLUSHING WELL, INFUSING WITH IVF ORDERED. DRESSING ON ARM SKIN TEAR REMAINS IN PLACED, NO ACTIVE BLEEDING NOTED. REMAINS ON CONINUOUS PULSE OXIMETER SPO2 100%. VS REMAINS STABLE, NEEDS ATTENDED. SAFETY PRECAUTIONS FOR FALL REMAINS ENGAGED, CALL LIGHT IN REACH, WILL ENDORSE TO DAY RN FOR CONTINUITY OF CARE.
--- NOTE | 2018-08-22 07:20 | NUR ---
RN OPENING NOTES RECEIVED PATIENT RESTING, HOB ELEVATED, CONFUSED. 2L O2 VIA NC, BREATHING EVEN AND UNLABORED. NO SOB OR PAIN NOTED AT THIS TIME. SITTER AT BEDSIDE FOR SAFETY. ABDUCTOR PILLOW IN PLACE. IV TO RAC PATENT AND INTACT RUNNING IVF ORDERED. LEFT HIP DRESSING INTACT, MD TO CHANGE DRESSING. KEPT PATIENT SAFE AND COMFORTABLE. BED IN LOW/LOCKED POSITION WITH CALL LIGHT IN REACH. BILATERAL UPPER SIDE RAILS IN PLACE. BED ALARM ON FOR SAFETY. WILL CONTINUE TO MONITOR ACCORDINGLY.
--- NOTE | 2018-08-22 08:20 | NUR ---
m/s lead c developer: md visit noted with low blood pressure: running from 80/54 to 86-57. dr. garcia here and made aware with new orders to change her iv fluids to ns at same rate, give iv normal bolus 500ml x 1, give 1 unit of prbc if hgb< 7.0 and lasix 20mg ivp after transfusion x 1, hold lasix and aldactone if only pt gets transfuse and if not continue lasix and aldactone. orders read back and carried out.
[2018-08-22] MEDS ORDERED: IV NS 0.9% 500 ML IV ONE (08:30)
[2018-08-22] MEDS ORDERED: IV NS 0.9% 1,000 ML BAG IV PRN (08:30)
[2018-08-22 08:52] LABS: BASOPHILS % (AUTO) 0.3 % (0.0-2.0); EOSINOPHILS % (AUTO) 0.2 % (0.0-6.0); HEMATOCRIT 21 % (33-45); LYMPHOCYTES # (AUTO) 1.8 /CMM (0.8-4.8); LYMPHOCYTES % (AUTO) 13.9 % (20.0-44.0); MEAN CORPUSCULAR HGB CONC 32 g/dl (31.0-36.0); MEAN CORPUSCULAR VOLUME 99 fL (82-100); MONOCYTES # (AUTO) 1.3 /CMM (0.1-1.30); MONOCYTES % (AUTO) 10.2 % (2.0-12.0); NEUTROPHILS # (AUTO) 9.7 /CMM (1.8-8.9); NEUTROPHILS % (AUTO) 75.4 % (43.0-81.0); PLATELET COUNT (AUTO) 180 /CMM (150-450); RED BLOOD CELL COUNT(AUTO) 2.11 MIL/uL (4.0-5.2); WHITE BLOOD COUNT (AUTO) 12.8 K/uL (4.3-11.0)
[2018-08-22 08:59] LABS: HEMOGLOBIN 6.7 g/dL (11.5-14.8)
[2018-08-22] MEDS: METOPROLOL SUCCINATE 25 MG TAB.SR.24H PO SCH (09:00)
[2018-08-22] MEDS: FUROSEMIDE 40 MG TABLET PO SCH (09:00)
[2018-08-22] MEDS: SERTRALINE HCL 25 MG TABLET PO SCH ×2 (09:00→09:50)
[2018-08-22] MEDS: SPIRONOLACTONE 25 MG TABLET PO SCH (09:00)
--- NOTE | 2018-08-22 09:30 | NUR ---
AFTER 500ML NS BOLUS GIVEN, BP= 98/53. WILL CONTINUE TO MONITOR ACCORDINGLY.
[2018-08-22] MEDS: IV NS 0.9% 1,000 ML IV PRN (09:33)
[2018-08-22 09:35] LABS: LYMPHOCYTES % (MANUAL) 15 % (16-48); MONOCYTES % (MANUAL) 10 % (0-11.0); NEUTROPHILS % (MANUAL) 75 (42-76)
[2018-08-22] MEDS: predniSONE 20 MG TABLET PO SCH (09:50)
[2018-08-22] MEDS: MONTELUKAST SODIUM (10MG) 10 MG TABLET PO SCH (09:50)
[2018-08-22] MEDS: CHOLECALCIFEROL 1,000 UNIT TABLET (VIT D3) PO SCH (09:50)
[2018-08-22] MEDS: Z GUARD REMEDY 2 OZ OINT TP SCH (09:51)
[2018-08-22] MEDS: ALLOPURINOL 100 MG TABLET PO SCH (09:51)
[2018-08-22] MEDS: PANTOPRAZOLE 40 MG TABLET.DR PO SCH (10:01)
[2018-08-22] MEDS: APIXABAN 2.5 MG TABLET PO SCH ×2 (10:02→18:25)
[2018-08-22] MEDS: FLUTICASONE/VILANTEROL 1 EACH BLST.W.DEV IH SCH (10:03)
[2018-08-22] MEDS ORDERED: FUROSEMIDE 20 MG/2 ML VIAL IV ONE (12:00)
--- NOTE | 2018-08-22 12:00 | NUR ---
m/s deputy sheriff chief: notes still awaiting for blood products, renew lasix order per md. will continue to monitor.
--- NOTE | 2018-08-22 14:00 | NUR ---
m/s pvc monitor: notes bradly (sister) visiting and asked her about pt's vaccination. per sister, pt is allergic to eggs and cannot have the vaccine, pt had pneumococcal vaccine beginning of this year as stated. updated vaccination in chart.
--- NOTE | 2018-08-22 14:59 | NUR ---
m/s certified juvenile probation officer: notes 1 unit of prbc given by rn at this time. vss; afebrile. sister remains at bedside. will continue to monitor.
--- NOTE | 2018-08-22 15:14 | NUR ---
m/s belt and link assembly supervisor: notes no a/r noted after 15mins of transfusion. vss, afebrile. sister remains at bedside. will continue to monitor.
--- NOTE | 2018-08-22 16:00 | NUR ---
m/s business writer: notes no a/r noted after 1 hour of blood transfusion. vss, remains afebrile. will continue to monitor.
[2018-08-22] MEDS ORDERED: FUROSEMIDE 20 MG/2 ML VIAL IV PRN (17:00)
--- NOTE | 2018-08-22 17:50 | NUR ---
m/s payroll accounting specialist: notes blood transfusion completed without a/r noted. remains afebrile. vss. needs attended. will continue to monitor.
--- NOTE | 2018-08-22 19:15 | NUR ---
RN OPENING NOTES RECEIVED PATIENT RESTING WITH HOB ELEVATED, CONFUSED. 2L O2 VIA NC, BREATHING EVEN AND UNLABORED. NO SOB NOTED AT THIS TIME. 1:1 SITTER AT BEDSIDE FOR SAFETY. ABDUCTOR PILLOW IN PLACE. PERIPHERAL IV IN RUTHIE PATENT AND INTACT, RUNNING AT 60ML/HR. LEFT HIP DRESSING INTAC. KEPT PATIENT SAFE AND COMFORTABLE. BED IN LOW/LOCKED POSITION WITH CALL LIGHT WITHIN REACH. BILATERAL UPPER SIDE RAILS IN PLACE. BED ALARM ON FOR SAFETY. WILL CONTINUE TO MONITOR ACCORDINGLY.
[2018-08-22] MEDS: ATORVASTATIN 10 MG TABLET PO SCH (21:27)
[2018-08-23] MEDS: IV NS 0.9% 1,000 ML IV PRN ×2 (00:41→16:33)
[2018-08-23] MEDS: ACETAMINOPHEN 325 MG TABLET PO PRN (02:28)
--- NOTE | 2018-08-23 02:30 | NUR ---
RN NOTES Patient complaining of pain, but unable to scale. Tylenol 650mg given as ordered
[2018-08-23] MEDS: ALBUTEROL FS 2.5 MG/0.5 ML VIAL.NEB NEB SCH ×6 (03:04→23:16)
--- NOTE | 2018-08-23 07:29 | NUR ---
RN CLOSING NOTES PATIENT IN BED, HOB ELEVATED. NO COMPLAINTS OF THIS TIME. ALL DUE MEDICATIONS GIVEN ORDERED. TURNED AND REPOSITIONED PATIENT EVERY 2 HRS NEEDED. ABDUCTOR PILLOW IN PLACE. KEPT PATIENT SAFE AND COMFORTABLE. SITTER AT BEDSIDE. ALL NEEDS ATTENDED AND PROVIDED. BED IN LOW/LOCKED POSITION, SIDERAILS UP, CALL LIGHT IN REACH. BED ALARM ON. ENDORSED KASIA TO ONCOMING RN
--- NOTE | 2018-08-23 07:50 | NUR ---
RN NOTES PATIENT IN BED, HOB ELEVATED. NO S/SX OF PAIN AT THIS TIME. ABDUCTOR PILLOW IN PLACE. KEPT PATIENT SAFE AND COMFORTABLE. SITTER AT BEDSIDE. BED IN LOW/LOCKED POSITION, SIDERAILS UP, CALL LIGHT IN REACH. BED ALARM ON. WILL CONTINUE TO MONITOR.
[2018-08-23 08:00] VITALS: BP 101/57
[2018-08-23 08:09] LABS: BASOPHILS % (AUTO) 0.1 % (0.0-2.0); EOSINOPHILS % (AUTO) 0.5 % (0.0-6.0); HEMATOCRIT 25 % (33-45); LYMPHOCYTES # (AUTO) 1.8 /CMM (0.8-4.8); LYMPHOCYTES % (AUTO) 16.2 % (20.0-44.0); MEAN CORPUSCULAR HGB CONC 32 g/dl (31.0-36.0); MEAN CORPUSCULAR VOLUME 96 fL (82-100); NEUTROPHILS # (AUTO) 8.3 /CMM (1.8-8.9); NEUTROPHILS % (AUTO) 74.2 % (43.0-81.0); PLATELET COUNT (AUTO) 180 /CMM (150-450); RED BLOOD CELL COUNT(AUTO) 2.55 MIL/uL (4.0-5.2); WHITE BLOOD COUNT (AUTO) 11.2 K/uL (4.3-11.0)
[2018-08-23] MEDS: PANTOPRAZOLE 40 MG TABLET.DR PO SCH (08:21)
[2018-08-23] MEDS: ALLOPURINOL 100 MG TABLET PO SCH (08:22)
[2018-08-23] MEDS: predniSONE 20 MG TABLET PO SCH (08:22)
[2018-08-23] MEDS: SPIRONOLACTONE 25 MG TABLET PO SCH (08:22)
[2018-08-23] MEDS: SERTRALINE HCL 25 MG TABLET PO SCH (08:22)
[2018-08-23] MEDS: MONTELUKAST SODIUM (10MG) 10 MG TABLET PO SCH (08:22)
[2018-08-23] MEDS: CHOLECALCIFEROL 1,000 UNIT TABLET (VIT D3) PO SCH (08:22)
[2018-08-23] MEDS: FUROSEMIDE 40 MG TABLET PO SCH (08:22)
[2018-08-23] MEDS: METOPROLOL SUCCINATE 25 MG TAB.SR.24H PO SCH (08:29)
[2018-08-23] MEDS: FLUTICASONE/VILANTEROL 1 EACH BLST.W.DEV IH SCH (08:31)
[2018-08-23] MEDS: Z GUARD REMEDY 2 OZ OINT TP SCH (08:31)
[2018-08-23] MEDS: APIXABAN 2.5 MG TABLET PO SCH ×2 (08:36→16:28)
[2018-08-23 16:00] VITALS: BP 108/58
--- NOTE | 2018-08-23 18:28 | NUR ---
RN NOTES PATIENT A/OX2, BREATHING EVEN AND UNLABORED, ENCOURAGED USE OF INCENTIVE SPIROMETER EVERY HOUR, PATIENT IS COMPLIANT. PATIENT DENIES PAIN AT THIS TIME, TURNED AND REPOSITIONED EVERY 2 HOURS, DAGO. HEELS OFFLOADED, WOUND TREATMENT COMPLETED, MEPILEX ON SACRAL. Z-GUARD APPLIED ON THE SURROUNDING AREA. SITTER AT BEDSIDE, ALL NEEDS ATTENDED AND MET, PHYSICAL THERAPY WAS COMPLETED THIS AFTERNOON, PER PT REPORT, PATIENT WAS ABLE TO STAND UP 3 TIMES AND TOLERATED WELL WITH MINIMAL C/O PAIN. CALL LIGHT WITHIN REACH, WILL ENDORSE TO TREE THINNER FOR KASIA.
[2018-08-23 20:00] VITALS: BP 131/63
[2018-08-23] MEDS: ATORVASTATIN 10 MG TABLET PO SCH (21:11)
[2018-08-23] MEDS: HYDROCODONE/APAP 5/325MG 1 EACH TABLET PO PRN (21:12)
[2018-08-24] MEDS: ALBUTEROL FS 2.5 MG/0.5 ML VIAL.NEB NEB SCH ×4 (03:07→15:36)
--- NOTE | 2018-08-24 06:43 | NUR ---
MS RN NOTES AWAKE & RESPONSIVE. NOT IN ANY DISTRESS. NO SOB NOTED. DENIES ANY PAIN OR DISCOMFORT AT THIS TIME. WITH IVF INFUSING WELL. AM CARE DONE. MONITORED ACCORDINGLY. CALL LIGHT WITHIN REACH. BED IN LOWEST POSITION. SR UP X3 FOR SAFETY. WILL ENDORSE TO NEXT SHIFT.
[2018-08-24 07:09] LABS: BASOPHILS % (AUTO) 0.1 % (0.0-2.0); EOSINOPHILS % (AUTO) 0.8 % (0.0-6.0); HEMATOCRIT 25 % (33-45); HEMOGLOBIN 8.2 g/dL (11.5-14.8); LYMPHOCYTES # (AUTO) 1.5 /CMM (0.8-4.8); LYMPHOCYTES % (AUTO) 13.7 % (20.0-44.0); MEAN CORPUSCULAR HGB CONC 32 g/dl (31.0-36.0); MEAN CORPUSCULAR VOLUME 97 fL (82-100); MONOCYTES # (AUTO) 0.7 /CMM (0.1-1.30); MONOCYTES % (AUTO) 6.2 % (2.0-12.0); NEUTROPHILS # (AUTO) 8.5 /CMM (1.8-8.9); NEUTROPHILS % (AUTO) 79.2 % (43.0-81.0); PLATELET COUNT (AUTO) 243 /CMM (150-450); RED BLOOD CELL COUNT(AUTO) 2.62 MIL/uL (4.0-5.2); WHITE BLOOD COUNT (AUTO) 10.8 K/uL (4.3-11.0)
[2018-08-24 08:00] VITALS: BP 133/56
[2018-08-24] MEDS: predniSONE 20 MG TABLET PO SCH (08:06)
[2018-08-24] MEDS: SERTRALINE HCL 25 MG TABLET PO SCH (08:06)
[2018-08-24] MEDS: CHOLECALCIFEROL 1,000 UNIT TABLET (VIT D3) PO SCH (08:06)
[2018-08-24] MEDS: PANTOPRAZOLE 40 MG TABLET.DR PO SCH (08:06)
[2018-08-24] MEDS: MONTELUKAST SODIUM (10MG) 10 MG TABLET PO SCH (08:06)
[2018-08-24] MEDS: METOPROLOL SUCCINATE 25 MG TAB.SR.24H PO SCH (08:06)
[2018-08-24] MEDS: SPIRONOLACTONE 25 MG TABLET PO SCH (08:06)
[2018-08-24] MEDS: FUROSEMIDE 40 MG TABLET PO SCH (08:06)
[2018-08-24] MEDS: ALLOPURINOL 100 MG TABLET PO SCH (08:06)
[2018-08-24] MEDS: APIXABAN 2.5 MG TABLET PO SCH ×2 (08:07→16:19)
[2018-08-24] MEDS: FLUTICASONE/VILANTEROL 1 EACH BLST.W.DEV IH SCH (08:14)
--- NOTE | 2018-08-24 08:20 | NUR ---
MS RN NOTES Patient is sitting up in bed, had breakfast with fair appetite. On low flow oxygen at 2L/min via NC, denies shortness of breath. IVF infusing, maintained at 60ml/hr. On isolation, contact precaution-MRSA nares, PPE utilized. Maintained safety, will cont to monitor.
[2018-08-24] MEDS: Z GUARD REMEDY 2 OZ OINT TP SCH (09:58)
[2018-08-24 16:00] VITALS: BP 108/82
--- NOTE | 2018-08-24 17:30 | NUR ---
MS RN DISCHARGED Patient has been cleared for discharge to SNF by . VSS, left hip with judith intact, dressing in place, no bleeding. Patient is confused, called [facility] spoke with Fatoumata/RIAZ for report. IVC removed, gauze applied. Belongings check and send with the patient upon DC. Patient left hosp in stable condition via ambulance.
== END 2018-08-24 17:30 | DRG 469 ==
LOC: ER 08:02 → TELE 11:11 → MED 08-19 20:23
PROVIDERS: ADMIT Internal Medicine; ATTEND Internal Medicine
PROC: 0SRS0JZ Replacement of Left Hip Joint, Femoral Surface with Synthetic Substitute, Open Approach (ICD-10-PCS; principal; 2018-08-19)
PROC: 30233N1 Transfusion of Nonautologous Red Blood Cells into Peripheral Vein, Percutaneous Approach (ICD-10-PCS; 2018-08-22)
DX: S72.012A Unspecified intracapsular fracture of left femur, initial encounter for closed fracture (principal); G93.41 Metabolic encephalopathy; N17.9 Acute kidney failure, unspecified; N18.4 Chronic kidney disease, stage 4 (severe); I13.0 Hypertensive heart and chronic kidney disease with heart failure and stage 1 through stage 4 chronic kidney disease, or unspecified chronic kidney disease; I50.32 Chronic diastolic (congestive) heart failure; J98.11 Atelectasis; W18.30XA Fall on same level, unspecified, initial encounter; Y92.129 Unspecified place in nursing home as the place of occurrence of the external cause; J44.9 Chronic obstructive pulmonary disease, unspecified; M17.12 Unilateral primary osteoarthritis, left knee; I35.0 Nonrheumatic aortic (valve) stenosis; G30.9 Alzheimer's disease, unspecified; F02.80 Dementia in other diseases classified elsewhere, unspecified severity, without behavioral disturbance, psychotic disturbance, mood disturbance, and anxiety; Z99.81 Dependence on supplemental oxygen; K21.9 Gastro-esophageal reflux disease without esophagitis; Z88.0 Allergy status to penicillin; D72.829 Elevated white blood cell count, unspecified; E79.0 Hyperuricemia without signs of inflammatory arthritis and tophaceous disease; Z79.51 Long term (current) use of inhaled steroids; Z87.891 Personal history of nicotine dependence; D64.9 Anemia, unspecified; I95.81 Postprocedural hypotension
CPT/HCPCS: 36415; 36600; 71045-TC; 72170-TC; 72192-TC; 73502; 73552; 80048-TC; 80053-TC; 81000-TC; 82803-TC; 82962-TC; 83605-TC; 83735-TC; 84100-TC; 84484-TC; 85025-TC; 85730-TC; 86850-TC; 86921-TC; 87040-TC; 87081-TC; 87086-TC; 88305-TC; 88311-TC; 93307-TC; 94760-TC; 94799-TC; 97110-TC; 97116-TC; 97530-TC; A4217; A6209; A6402; A6403; G0378; J0696; J1100; J1720; J1940; J2270; J2370; J2405; J2704; J2710; J3370; J3475; J3490; J7030; J7040; J7050; J7060; P9016-BL

== ENCOUNTER 2018-09-09 21:17 | Inpatient (IN) | payer MEDICARE, MEDICAID ==
[~2018-09-09] VITALS: Ht 160 cm; Wt 47.7 kg
[~2018-09-09 21:17] MED LIST changes: +DIPH1TAB PO; +FLUT10.62 IH; +FLUT1BLS IH; +FURO-144 PO; +MIRT15TA7 PO; +MONT10TA22 PO; +PANT40TA2 PO; +PRED2.5T PO; +SPIR25TA PO
--- NOTE | 2018-09-09 21:30 | NUR ---
[id number] FROM THE [place] C/O FEVER/COUGH X 1 DAY. PATIENT DX WITH L HIP FX ON 08/19/18. PT IS AOX3, VSS, RESPIRATIONS EVEN AND UNLABORED. SKIN WARM TO TOUCH, DRY, INTACT. BRUISING ON LEFT ARM, PT STATES "FROM PREVIOUS IV SITES". DENIES SOB, DIZZINESS, WEAKNESS, N/V. VERY PLEASANT DEMEANOR. READY FOR EVAL.
--- NOTE | 2018-09-09 21:37 | NUR ---
RECTAL TEMP 98.7F. INFORMED
--- NOTE | 2018-09-09 21:58 | NUR ---
RADIOLOGY AT BEDSIDE
[2018-09-09 22:11] LABS: BASOPHILS % (AUTO) 0.2 % (0.0-2.0); EOSINOPHILS % (AUTO) 0.1 % (0.0-6.0); HEMATOCRIT 28 % (33-45); LYMPHOCYTES # (AUTO) 1.2 /CMM (0.8-4.8); LYMPHOCYTES % (AUTO) 9.4 % (20.0-44.0); MEAN CORPUSCULAR HGB CONC 32 g/dl (31.0-36.0); MEAN CORPUSCULAR VOLUME 99 fL (82-100); MONOCYTES # (AUTO) 0.5 /CMM (0.1-1.30); MONOCYTES % (AUTO) 4.1 % (2.0-12.0); NEUTROPHILS # (AUTO) 10.9 /CMM (1.8-8.9); NEUTROPHILS % (AUTO) 86.2 % (43.0-81.0); PLATELET COUNT (AUTO) 231 /CMM (150-450); RED BLOOD CELL COUNT(AUTO) 2.85 MIL/uL (4.0-5.2); WHITE BLOOD COUNT (AUTO) 12.7 K/uL (4.3-11.0)
[2018-09-09 22:20] LABS: CALCIUM, SERUM 8.7 mg/dL (8.5-10.1); CARBON DIOXIDE 31 mmol/L (21-32); CHLORIDE 105 mmol/L (98-107); CREATININE 1.2 mg/dL (0.6-1.3); GLUCOSE 83 mg/dL (74-106); POTASSIUM 4.7 mmol/L (3.5-5.1); SODIUM SERUM 139 mmol/L (136-145); UREA NITROGEN, BLOOD 31 mg/dL (7-18)
[2018-09-09 22:25] LABS: ALANINE AMINOTRANSFERASE 8 U/L (12-78); ALBUMIN 2.2 g/dL (3.4-5.0); ALKALINE PHOSPHATASE 107 U/L (46-116); ASPARTATE AMINOTRANSFERASE 11 U/L (15-37); BILIRUBIN,DIRECT 0.1 mg/dL (0.0-0.2); BILIRUBIN,TOTAL 0.4 mg/dL (0.2-1.0); TOTAL PROTEIN, SERUM 5.8 g/dL (6.4-8.2)
--- NOTE | 2018-09-09 22:50 | NUR ---
CLEANED PT AND APPLIED NEW DIAPER. OBTAINED SMALL AMOUNT OF URINE VIA STRAIGHT CATH. WILL WAIT FOR MORE URINE TO SEND TO LAB. PT MADE COMFORTABLE WITH PILLOWS AND BLANKETS
[2018-09-09] MEDS ORDERED: VANCOMYCIN 1 GM VIAL ONE (22:55)
[2018-09-09] MEDS ORDERED: CEFEPIME 1 GM VIAL ONE (22:55)
[2018-09-09] MEDS ORDERED: VANCOMYCIN 1 GM in IV D5W 250 ML IV ONE (23:00)
[2018-09-09] MEDS ORDERED: CEFEPIME 1 GM in IV D5W 50 ML IV ONE (23:00)
[2018-09-09] MEDS ORDERED: ASPIRIN 325 MG TABLET PO ONE (23:30)
[2018-09-09] MEDS ORDERED: IV NS 0.9% 1,000 ML BAG IV ONE (23:30)
[2018-09-09] MEDS ORDERED: ASPIRIN 325 MG TABLET ONE (23:35)
--- NOTE | 2018-09-09 23:54 | NUR ---
REPORT GIVEN TO MARQUES HERNANDEZ FOR BED 307-2 TELE
--- NOTE | 2018-09-10 00:05 | NUR ---
URINE OBTAINED VIA STRAIGHT CATH AND SENT TO LAB
[2018-09-10 00:16] LABS: APPEARANCE,URINE SL CLOUDY (CLEAR); BILIRUBIN,URINE NEGATIVE (NEGATIVE); BLOOD, URINE 3+ Ery/uL (NEGATIVE); COLOR,URINE YELLOW (YELLOW); KETONES,URINE NEGATIVE (NEGATIVE); LEUKOCYTE ESTERASE ,URINE TRACE (NEGATIVE); NITRITE, URINE POSITIVE (NEGATIVE); PH,URINE 5.5 (5.0-8.0); PROTEIN,URINE NEGATIVE (NEGATIVE); UGLUCOSE NEGATIVE (NEGATIVE); UROBILINOGEN,URINE 0.2 EU/dL (0.2)
[2018-09-10 00:28] LABS: BACTERIA,URINE Moderate /HPF (None Seen); SQUAMOUS EPITHELIAL CELL,UR Few /HPF (None Seen)
[2018-09-10 00:30] VITALS: BP 115/76
--- NOTE | 2018-09-10 00:30 | NUR ---
SAFETY DEPOSIT SUPERVISORCONTRACT GRAPHIC DESIGNER NOTES RECEIVED FROM ER PER FRIEDA THIS 78 YO FEMALE FROM [facility],A/O X1,CONFUSED,WITH CHIEF COMPLAINTS OF FEVER,COUGH X 1 DAY.NOTED MULTIPLE SKIN SKIN DISCOLORATION,BRUISING ON UPPER AND LOWER EXTREMITIES.WITH KNOWN HX OF LEFT HIP SURGERY ON 07/2018,WITH 24 SUELLEN NOTED,WITH SCANTY DISCHARGES AND WITH FOUL SMELL.DRESSING CHANGED DONE.SALINE LOCK RIGHT AC INTACT AND PATENT.NOTES OPEN WOUND ON SACRAL AREA 2X1CM WITH YELLOW COLOR.FALL PRECAUTION OBSERVED,BED ON LOWEST POSITION AND LOCKED.CALL LIGHT IN REACH,NEEDS ANTICIPATED.
--- NOTE | 2018-09-10 00:37 | NUR ---
PT TRANSFERRED TO 309-2 TELE (BACK TO ORIGINAL BED)
[2018-09-10] MEDS ORDERED: ALBUTEROL FS 2.5 MG/3 ML VIAL.NEB NEB PRN (01:00)
[2018-09-10] MEDS ORDERED: IPRATROPIUM NEB FS 0.5 MG/2.5 ML AMPUL.NEB NEB PRN (01:00)
[2018-09-10] MEDS ORDERED: CEFTRIAXONE 2 G in IV D5W 100 ML IV ONE (02:30)
[2018-09-10] MEDS ORDERED: AZITHROMYCIN 500 MG in IV D5W 250 ML IV ONE (02:30)
[2018-09-10] MEDS ORDERED: CEFTRIAXONE 1 G VIAL ONE (02:57)
[2018-09-10] MEDS ORDERED: IV D5/ 0.9% NACL 1,000 ML IV PRN (03:30)
[2018-09-10] MEDS ORDERED: AZITHROMYCIN 500 MG VIAL ONE (04:59)
--- NOTE | 2018-09-10 06:25 | NUR ---
MS RN NOTES SLEPT WITH INTERVALS.NO SOB,O2 IN USED AT 2L/NC TO KEEP 02 SAT ABOVE 90%.IV ROCEPHIN AND AZITHROMYCIN GIVEN.NO ADVERSE REACTION NOTED.MEPILEX APPLIED TO SACRAL OPEN WOUND.NO FALL.BED ALARM TRIGGERED.IN NO ACUTE DISTRESS.WILL ENDORSE TO DAY NURSE FOR KASIA.
[2018-09-10 06:27] LABS: BASOPHILS % (AUTO) 0.2 % (0.0-2.0); EOSINOPHILS % (AUTO) 0.6 % (0.0-6.0); HEMATOCRIT 27 % (33-45); HEMOGLOBIN 8.9 g/dL (11.5-14.8); LYMPHOCYTES # (AUTO) 1.5 /CMM (0.8-4.8); MEAN CORPUSCULAR HGB CONC 33 g/dl (31.0-36.0); MEAN CORPUSCULAR VOLUME 99 fL (82-100); MONOCYTES # (AUTO) 0.7 /CMM (0.1-1.30); MONOCYTES % (AUTO) 7.7 % (2.0-12.0); NEUTROPHILS # (AUTO) 7.3 /CMM (1.8-8.9); NEUTROPHILS % (AUTO) 75.5 % (43.0-81.0); PLATELET COUNT (AUTO) 216 /CMM (150-450); RED BLOOD CELL COUNT(AUTO) 2.76 MIL/uL (4.0-5.2); WHITE BLOOD COUNT (AUTO) 9.7 K/uL (4.3-11.0)
[2018-09-10 06:42] LABS: CALCIUM, SERUM 7.7 mg/dL (8.5-10.1); CARBON DIOXIDE 30 mmol/L (21-32); CHLORIDE 104 mmol/L (98-107); CREATININE 1.1 mg/dL (0.6-1.3); GLUCOSE 83 mg/dL (74-106); POTASSIUM 4.1 mmol/L (3.5-5.1); SODIUM SERUM 140 mmol/L (136-145); UREA NITROGEN, BLOOD 28 mg/dL (7-18)
--- NOTE | 2018-09-10 07:43 | NUR ---
MS RN OPENING NOTES RECEIVED PATIENT IN STABLE CONDITION. IN NO APPARENT DISTRESS. BEDSIDE RAILS ARE UPX2. BED IS LOCKED AND LOWERED. CALL LIGHT IS WITHIN REACH. IV LINE IS INTACT AND PATENT. WILL CONTINUE TO MONITOR PATIENT.
[2018-09-10 08:00] VITALS: BP 131/82
[2018-09-10] MEDS ORDERED: PANTOPRAZOLE 40 MG TABLET.DR PO SCH (09:00)
[2018-09-10] MEDS ORDERED: METOPROLOL SUCCINATE 25 MG TAB.SR.24H PO SCH (09:00)
[2018-09-10] MEDS ORDERED: FLUTICASONE/VILANTEROL 1 EACH BLST.W.DEV IH SCH (09:00)
[2018-09-10] MEDS: FLUTICASONE/VILANTEROL 1 EACH BLST.W.DEV IH SCH ×2 (09:00→16:13)
[2018-09-10] MEDS ORDERED: MONTELUKAST SODIUM (10MG) 10 MG TABLET PO SCH (09:00)
[2018-09-10] MEDS ORDERED: FUROSEMIDE 40 MG TABLET PO SCH (09:00)
[2018-09-10] MEDS ORDERED: SERTRALINE HCL 25 MG TABLET PO SCH (09:00)
[2018-09-10] MEDS ORDERED: CHOLECALCIFEROL 1,000 UNIT TABLET (VIT D3) PO SCH (09:00)
[2018-09-10] MEDS ORDERED: SPIRONOLACTONE 25 MG TABLET PO SCH (09:00)
[2018-09-10] MEDS ORDERED: ALLOPURINOL 100 MG TABLET PO SCH (09:00)
[2018-09-10] MEDS: ALLOPURINOL 100 MG TABLET PO SCH (09:27)
[2018-09-10] MEDS: METOPROLOL SUCCINATE 25 MG TAB.SR.24H PO SCH (09:27)
[2018-09-10] MEDS: SERTRALINE HCL 25 MG TABLET PO SCH (09:27)
[2018-09-10] MEDS: MONTELUKAST SODIUM (10MG) 10 MG TABLET PO SCH (09:28)
[2018-09-10] MEDS: CHOLECALCIFEROL 1,000 UNIT TABLET (VIT D3) PO SCH (09:28)
[2018-09-10] MEDS: SPIRONOLACTONE 25 MG TABLET PO SCH (09:28)
[2018-09-10] MEDS: FUROSEMIDE 40 MG TABLET PO SCH (09:28)
--- NOTE | 2018-09-10 09:30 | NUR ---
CALLED PHARMACY TO PROVIDE BREO ELLIPTA. PHARMACY WILL PROVIDE.
--- NOTE | 2018-09-10 10:42 | NUR ---
NON ADMINISTERED BREO ELLIPTA. INFORMED PHARMACY TO PROVIDE BREO ELLIPTA. MEDICATION HAS NOT BEEN PROVIDED.
[2018-09-10 12:00] VITALS: BP 128/70
[2018-09-10 16:00] VITALS: BP 143/72
--- NOTE | 2018-09-10 18:18 | NUR ---
MS RN CLOSING NOTES PATIENT IS IN STABLE CONDITION. IN NO APPARENT DISTRESS. BEDSIDE RAILS ARE UPX2. BED IS LOCKED AND LOWERED. CALL LIGHT IS WITHIN REACH. IV LINE IS INTACT AND PATENT. ALL NEEDS WERE MET. WILL ENDORSE CARE TO PAPER GOODS MACHINE OPERATOR NURSE FOR KASIA.
--- NOTE | 2018-09-10 19:30 | NUR ---
ARRESTING GEAR OPERATOR NOTE: PATIENT RESTING IN BED, NO ACUTE DISTRESS NOTED. BREATHING EVEN AND UNLABORED, NO SOB NOTED. IV TO RAC IN PLACE. BED LOCKED AND IN LOWEST POSITION, CALL LIGHT IN REACH. WILL CONTINUE TO MONITOR.
[2018-09-10 20:00] VITALS: BP 124/63
[2018-09-10] MEDS ORDERED: CEFTRIAXONE 2 G in IV D5W 100 ML IV SCH (21:00)
[2018-09-10] MEDS: ATORVASTATIN 10 MG TABLET PO SCH (21:19)
[2018-09-10] MEDS: AZITHROMYCIN 500 MG in IV D5W 250 ML IV SCH (21:55)
[2018-09-10] MEDS ORDERED: ATORVASTATIN 10 MG TABLET PO SCH (22:00)
--- NOTE | 2018-09-10 22:15 | NUR ---
GOLF COURSE ARCHITECT NOTE: PATIENT IV TO RAC NOTED LEAKING, NEW IV STARTED TO LFA #22 WITH GOOD BLOOD RETURN. IV TO RAC REMOVED, COVERED WITH GAUZE, PRESSURE APPLIED AND SECURED WITH TAPE. WILL CONTINUE TO MONITOR.
[2018-09-11] VITALS: BP 126/67
[2018-09-11 04:00] VITALS: BP 131/98
--- NOTE | 2018-09-11 06:03 | NUR ---
PROCUREMENT SERVICES MANAGER NOTE: PATIENT RESTING IN BED, NO ACUTE DISTRESS NOTED. BREATHING EVEN AND UNLABORED, NO SOB NOTED. IV TO LFA IN PLACE. BED LOCKED AND IN LOWEST POSITION, CALL LIGHT IN REACH. WILL ENDORSE TO DAY NURSE TO CONTINUE WITH PLAN OF CARE.
--- NOTE | 2018-09-11 07:15 | NUR ---
RN NOTES PATIENT ASLEEP BUT EASILY AWAKEN, NO S/SX OF DISTRESS NOTED, BREATHING EVEN AND UNLABORED, KEPT COMFORTABLE, NEEDS ATTENDED, CALL LIGHT WITHIN REACH, WILL CONTINUE TO MONITOR.
[2018-09-11 08:00] VITALS: BP 96/66
[2018-09-11] MEDS: PANTOPRAZOLE 40 MG TABLET.DR PO SCH (08:29)
[2018-09-11] MEDS: FUROSEMIDE 40 MG TABLET PO SCH (08:29)
[2018-09-11] MEDS: MONTELUKAST SODIUM (10MG) 10 MG TABLET PO SCH (08:29)
[2018-09-11] MEDS: FLUTICASONE/VILANTEROL 1 EACH BLST.W.DEV IH SCH ×2 (08:29→16:35)
[2018-09-11] MEDS: SPIRONOLACTONE 25 MG TABLET PO SCH (08:30)
[2018-09-11] MEDS: CHOLECALCIFEROL 1,000 UNIT TABLET (VIT D3) PO SCH (08:30)
[2018-09-11] MEDS: SERTRALINE HCL 25 MG TABLET PO SCH (08:30)
[2018-09-11] MEDS: ALLOPURINOL 100 MG TABLET PO SCH (08:30)
[2018-09-11] MEDS: METOPROLOL SUCCINATE 25 MG TAB.SR.24H PO SCH (08:31)
[2018-09-11 10:24] LABS: BASOPHILS % (AUTO) 0.4 % (0.0-2.0); EOSINOPHILS % (AUTO) 0.7 % (0.0-6.0); HEMATOCRIT 31 % (33-45); LYMPHOCYTES # (AUTO) 1.6 /CMM (0.8-4.8); LYMPHOCYTES % (AUTO) 12.3 % (20.0-44.0); MEAN CORPUSCULAR HGB CONC 33 g/dl (31.0-36.0); MEAN CORPUSCULAR VOLUME 97 fL (82-100); MONOCYTES # (AUTO) 0.7 /CMM (0.1-1.30); MONOCYTES % (AUTO) 5.4 % (2.0-12.0); NEUTROPHILS # (AUTO) 10.6 /CMM (1.8-8.9); NEUTROPHILS % (AUTO) 81.2 % (43.0-81.0); PLATELET COUNT (AUTO) 252 /CMM (150-450); RED BLOOD CELL COUNT(AUTO) 3.14 MIL/uL (4.0-5.2); WHITE BLOOD COUNT (AUTO) 13.1 K/uL (4.3-11.0)
[2018-09-11 10:35] LABS: CALCIUM, SERUM 8.9 mg/dL (8.5-10.1); CARBON DIOXIDE 29 mmol/L (21-32); CHLORIDE 99 mmol/L (98-107); CREATININE 1.2 mg/dL (0.6-1.3); GLUCOSE 147 mg/dL (74-106); POTASSIUM 3.6 mmol/L (3.5-5.1); SODIUM SERUM 136 mmol/L (136-145); UREA NITROGEN, BLOOD 23 mg/dL (7-18)
[2018-09-11 10:40] LABS: IRON, SERUM 17 ug/dl (50-175); TOTAL IRON BINDING CAPACITY 199 ug/dl (250-450)
[2018-09-11 10:43] LABS: ALANINE AMINOTRANSFERASE 12 U/L (12-78); ALBUMIN 2.2 g/dL (3.4-5.0); ALKALINE PHOSPHATASE 100 U/L (46-116); ASPARTATE AMINOTRANSFERASE 15 U/L (15-37); BILIRUBIN,TOTAL 0.3 mg/dL (0.2-1.0); MAGNESIUM 1.3 mg/dL (1.8-2.4); PHOSPHORUS 2.8 mg/dL (2.5-4.9); TOTAL PROTEIN, SERUM 5.9 g/dL (6.4-8.2)
[2018-09-11 10:51] LABS: FERRITIN 210 ng/mL (8-388)
--- NOTE | 2018-09-11 11:49 | NUR ---
WOUND CARE CONSULT: PT PRESENTS WITH SACRAL UNSTAGEABLE ULCER WITH PERIWOUND DEEP TISSUE INJURY (INTACT), RT LATERAL ANKLE DRY ESCHAR AND LEFT HIP SURGICAL INCISION WITH REDNESS AND WEEPING, ALL PRESENT ON ADMISSION. DEFER TO [facility] FOR HIP INCISION AND DEFER TO PLASTIC SURGERY TEAM FOR SACRAL ULCER. DR SURESH HERE TO EXAMINE PT. LOW AIRLOSS BED TO BE PLACED (ISOFLEX). DISCUSSED SKIN PROTECTION AND CARE WITH NURSING STAFF. WILL SEE PRN. BRIONES IN AGREEMENT WITH PLAN OF CARE. Addendum: 09/11/18 at 1152 by RAGHAV SIMONS WNDNU Amended: Links added.
[2018-09-11] MEDS ORDERED: Z GUARD REMEDY 2 OZ OINT TP PRN (12:00)
[2018-09-11] MEDS ORDERED: LIDOCAINE 1%-EPI 1:100,000 20 ML VIAL TP ONE (12:00)
--- NOTE | 2018-09-11 12:00 | NUR ---
RN NOTES PATIENT S/P SACRAL WOUND DEBRIDEMENT BY DR. CARRINGTON. PATIENT TOLERATED PROCEDURE WELL, SISTER GAVE CONSENT FOR PROCEDURE. PHOTO TAKEN AND PLACED IN CHART. SACRAL WOUND APPLIED WITH MOISTENED GAUZE AND MEPILEX. NEEDS ATTENDED, CALL LIGHT WITHIN REACH, WILL CONTINUE TO MONITOR.
[2018-09-11] MEDS: Z GUARD REMEDY 2 OZ OINT TP SCH (12:33)
[2018-09-11] MEDS: Magnesium 1GM/D5W 100ML PREMIX 100 ML IV SCH ×2 (13:15→14:26)
--- NOTE | 2018-09-11 14:35 | NUR ---
RN NOTES DR. LOCKWOOD MADE AWARE OF TROPONIN LEVEL OF 0.315, NO NEW ORDER AT THIS TIME.
[2018-09-11] MEDS: ENSURE ENLIVE CHOC 237 ML CAN PO SCH ×2 (14:46→16:36)
--- NOTE | 2018-09-11 15:59 | NUR ---
RN NOTES PATIENT SEEN BY PEGGY DAS, LEFT HIP INCISION STILL NOTED WITH DISCHARGE, AWARE OF DR. CARRINGTON'S RECOMMENDATION TO OPEN LEFT HIP INCISION AND DO A WASH OUT. NO NEW ORDER AT THIS TIME. PATIENT KEPT COMFORTABLE, TURNING AND REPOSITIONING EVERY 2 HOURS. DAGO. HEELS OFFLOADED, STILL WAITING FOR HYDROGEL MEDICATION FROM PHARMACY. FOLLOW UP TWICE ALREADY. PER PHARMACY NARENDRA, IT WILL BE DELIVERED SOON.
[2018-09-11 16:00] VITALS: BP 115/56
[2018-09-11] MEDS: HYDROGEL DRESSING 90 GM TUBE TP SCH (16:35)
--- NOTE | 2018-09-11 18:36 | NUR ---
RN NOTES PATIENT A/OX2, BREATHING EVEN AND UNLABORED, ON O2 AT 2LPM VIA NC, STILL NOTED WITH PRODUCTIVE COUGH, NO SOB OBSERVED, TURNED AND REPOSITIONED EVERY 2 HOURS, DAGO. H EELS ELEVATED, PATIENT'S MATTRESS CHANGED TO ISOFLEX BED, ALL NEEDS ATTENDED AND MET, CALL LIGHT WITHIN REACH, WILL ENDORSE TO METROLOGY MANAGER FOR KASIA.
--- NOTE | 2018-09-11 19:55 | NUR ---
MS RN NOTE RECEIVED PT IN STABLE CONDITION A&O X1-2, WITH NO SIGNS OF SOB OR DISTRESS. IV ON LEFT FA #22 INTACT AND PATENT. SAFETY MEASURES IN PLACE: BED LOCKED AND LOWEST POSITION WITH CALL LIGHT WITHIN REACH. WILL CONT. TO MONITOR THROUGHOUT THE SHIFT.
[2018-09-11 20:00] VITALS: BP 96/47
[2018-09-11 20:06] VITALS: BP 96/47
[2018-09-11 20:50] LABS: APPEARANCE,URINE SL CLOUDY (CLEAR); BILIRUBIN,URINE NEGATIVE (NEGATIVE); BLOOD, URINE 3+ Ery/uL (NEGATIVE); COLOR,URINE YELLOW (YELLOW); KETONES,URINE NEGATIVE (NEGATIVE); LEUKOCYTE ESTERASE ,URINE TRACE (NEGATIVE); NITRITE, URINE NEGATIVE (NEGATIVE); PH,URINE 5.5 (5.0-8.0); PROTEIN,URINE NEGATIVE (NEGATIVE); UGLUCOSE NEGATIVE (NEGATIVE); UROBILINOGEN,URINE 0.2 EU/dL (0.2)
[2018-09-11] MEDS ORDERED: CEFTRIAXONE 1 G in IV D5W 50 ML IV SCH (21:00)
[2018-09-11 21:06] LABS: BACTERIA,URINE 2+ /HPF (None Seen); RBC,URINE 21-50 /HPF (0-2); SQUAMOUS EPITHELIAL CELL,UR Many /HPF (None Seen)
[2018-09-11] MEDS: ATORVASTATIN 10 MG TABLET PO SCH (21:43)
[2018-09-11] MEDS: AZITHROMYCIN 500 MG in IV D5W 250 ML IV SCH (23:08)
--- NOTE | 2018-09-12 06:15 | NUR ---
MS RN NOTE PT IN STABLE CONDITION A&O X1-2, WITH NO SIGNS OF SOB OR DISTRESS. IV ON LEFT FA #22 INTACT AND PATENT. SAFETY MEASURES IN PLACE: BED LOCKED AND LOWEST POSITION WITH CALL LIGHT WITHIN REACH. WILL ENDORSE TO NEXT SHIFT.
--- NOTE | 2018-09-12 07:45 | NUR ---
RN OPENING NOTE RECEIVED PT. PT STABLE AND RESTING IN BED. A/OX3. NO S/S OF RESP DISTRESS/SOB. NO C/O PAIN AT THIS TIME. IV ACCESS LOCATED ON LFA 22G, CURRENTLY SL. PT IS ON 2L O2 VIA NC, O2 SAT WNL. S/P SACRAL WOUND DEBRIDEMENT ON 09/11/18. S/P HIP SX PERFORMED 08/13. [facility]TH[facility] TO F/U ON HIP WOUND DRESSING. SAFETY MEASURES IN PLACE, CALL LIGHT WITHIN REACH. WILL CONTINUE TO MONITOR.
[2018-09-12 08:00] VITALS: BP 114/63
[2018-09-12] MEDS: PANTOPRAZOLE 40 MG TABLET.DR PO SCH (08:21)
[2018-09-12] MEDS: SERTRALINE HCL 25 MG TABLET PO SCH (08:21)
[2018-09-12] MEDS: ALLOPURINOL 100 MG TABLET PO SCH (08:21)
[2018-09-12] MEDS: MONTELUKAST SODIUM (10MG) 10 MG TABLET PO SCH (08:21)
[2018-09-12] MEDS: CHOLECALCIFEROL 1,000 UNIT TABLET (VIT D3) PO SCH (08:21)
[2018-09-12] MEDS: DAKINS QUARTER STRENGTH (0.125%) 480 ML BOTTLE TOP SCH (08:22)
[2018-09-12] MEDS: FLUTICASONE/VILANTEROL 1 EACH BLST.W.DEV IH SCH ×2 (08:22→16:39)
[2018-09-12] MEDS: ENSURE ENLIVE CHOC 237 ML CAN PO SCH ×2 (08:29→16:39)
[2018-09-12] MEDS: Z GUARD REMEDY 2 OZ OINT TP SCH (08:31)
[2018-09-12] MEDS: HYDROGEL DRESSING 90 GM TUBE TP SCH (08:32)
[2018-09-12] MEDS: METOPROLOL SUCCINATE 25 MG TAB.SR.24H PO SCH (08:32)
[2018-09-12] MEDS: ACETAMINOPHEN 325 MG TABLET PO PRN (12:33)
--- NOTE | 2018-09-12 13:11 | NUR ---
BAND LEADER BAND LEADER PLACED CALL TO MACIE DAS LETTING HIM KNOW THAT WOUND CARE WOULD DEFER TREATMENT RECOMMENDATIONS/PLANS TO [facility] FOR THE HIP POST OP INCISION. MACIE STATED [facility]TH[facility] WILL LOOK AT THE INCISION AND WILL TAKE CARE OF THE TREATMENT ORDERS FOR PATIENT'S HIP. ALL DISCUSSED WITH PRIMARY RN.
[2018-09-12] MEDS: MEROPENEM 1 G in IV NS 0.9% 100 ML IV SCH (13:50)
[2018-09-12] MEDS ORDERED: Magnesium 1GM/D5W 100ML PREMIX PIGGYBACK IV ONE (14:30)
[2018-09-12] MEDS: Magnesium 1GM/D5W 100ML PREMIX 100 ML IV SCH ×2 (15:41→16:20)
[2018-09-12 15:56] LABS: BASOPHILS % (AUTO) 0.2 % (0.0-2.0); EOSINOPHILS % (AUTO) 0.7 % (0.0-6.0); HEMATOCRIT 30 % (33-45); HEMOGLOBIN 9.8 g/dL (11.5-14.8); LYMPHOCYTES # (AUTO) 1.3 /CMM (0.8-4.8); LYMPHOCYTES % (AUTO) 14.3 % (20.0-44.0); MEAN CORPUSCULAR HGB CONC 33 g/dl (31.0-36.0); MEAN CORPUSCULAR VOLUME 97 fL (82-100); MONOCYTES # (AUTO) 0.6 /CMM (0.1-1.30); MONOCYTES % (AUTO) 6.3 % (2.0-12.0); NEUTROPHILS # (AUTO) 7.4 /CMM (1.8-8.9); NEUTROPHILS % (AUTO) 78.5 % (43.0-81.0); PLATELET COUNT (AUTO) 233 /CMM (150-450); RED BLOOD CELL COUNT(AUTO) 3.05 MIL/uL (4.0-5.2); WHITE BLOOD COUNT (AUTO) 9.4 K/uL (4.3-11.0)
[2018-09-12 16:00] VITALS: BP 112/55
[2018-09-12 16:10] LABS: CARBON DIOXIDE 34 mmol/L (21-32); CHLORIDE 99 mmol/L (98-107); CREATININE 1.1 mg/dL (0.6-1.3); GLUCOSE 86 mg/dL (74-106); MAGNESIUM 1.8 mg/dL (1.8-2.4); POTASSIUM 3.6 mmol/L (3.5-5.1); SODIUM SERUM 136 mmol/L (136-145); UREA NITROGEN, BLOOD 24 mg/dL (7-18)
[2018-09-12] MEDS: TRAMADOL HCL 50 MG TABLET PO PRN (16:22)
--- NOTE | 2018-09-12 18:47 | NUR ---
RN CLOSING NOTES PT RESTING IN BED, NO S/S OF RESP DISTRESS OR SOB. NO C/O PAIN. ALL PT NEEDS ANTICIPATED AND MET. SAFETY MEASURES IN PLACE, CALL LIGHT WITHIN REACH. WILL ENDORSE TO AEROPLANE PILOT FOR KASIA.
--- NOTE | 2018-09-12 19:25 | NUR ---
MS RN OPENING NOTE RECEIVED PT IN STABLE CONDITION AND RESTING IN BED. A/OX2 WITH PERIODS OF CONFUSION. NO S/S OF RESP DISTRESS/SOB. NO C/O PAIN VERBALIZED AT THIS TIME. IV ACCESS LOCATED ON LFA 22G, INTACT PATENT. S/P SACRAL WOUND DEBRIDEMENT ON 09/11/18. S/P HIP SX PERFORMED 08/13. [facility]TH[facility] TO F/U ON HIP WOUND DRESSING TOMORROW. SAFETY MEASURES IN PLACE, BED IN LOW LOCKED POSITION. CALL LIGHT WITHIN REACH. WILL CONTINUE TO MONITOR.
[2018-09-12 20:00] VITALS: BP 110/59
[2018-09-12] MEDS: AZITHROMYCIN 500 MG in IV D5W 250 ML IV SCH (21:11)
[2018-09-12] MEDS: ATORVASTATIN 10 MG TABLET PO SCH (21:14)
[2018-09-13] MEDS: IV NS W/30MEQ KCL 1L IV PRN ×2 (00:49)
[2018-09-13] MEDS: MEROPENEM 1 G in IV NS 0.9% 100 ML IV SCH ×2 (01:02→13:29)
--- NOTE | 2018-09-13 06:48 | NUR ---
MS RN CLOSING NOTE PT SLEPT INTERMITTENTLY AT NIGHT. A/OX2 WITH PERIODS OF CONFUSION. NO S/S OF RESP DISTRESS/SOB. NO C/O PAIN VERBALIZED AT THIS TIME. IV ACCESS LOCATED ON LFA 22G, INTACT PATENT. S/P SACRAL WOUND DEBRIDEMENT ON 09/11/18. S/P HIP SX PERFORMED 08/13. [facility]TH[facility] TO F/U ON HIP WOUND DRESSING TODAY. WILL ENDORSE TO AM RN TO CALL FAMILY TO GET CONSENT FOR THE PROCEDURE. PT IS NPO AFTER MIDNIGHT. SAFETY MEASURES IN PLACE, BED IN LOW LOCKED POSITION. CALL LIGHT WITHIN REACH. WILL ENDORSE TO AM RN FOR CONTINUITY OF CARE.
[2018-09-13 08:00] VITALS: BP 122/60
[2018-09-13] MEDS: ENSURE ENLIVE CHOC 237 ML CAN PO SCH ×2 (08:00→17:05)
--- NOTE | 2018-09-13 08:00 | NUR ---
RN NOTES RECEIVED PATIENT IN THE BED A/O X1/2, PATIENT CONFUSED, IRRITABLE EASILY. PATIENT NPO SCHEDULED SURGERY FOR LEFT WOUND WASH OUT, POSSIBLE VAC PLACEMENT. SCHEDULED MEDICATION ADMINISTERED. PATIENT `REFUSED PAIN AT THIS TIME. ON O2-2L NC. NO ACUTE RESPIRATORY DISTRESS. PATIENT TOTAL CARE . DRESSING CHANGED, ASSIST TURN AND REPOSITION Q 2 HR. 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 INFUSING NS WITH K+30MEG AT 50 ML/HR INTACT ON LEFT FA. PATIENT INCONTINENT, USING DIAPER,. ASSIST TURN AND REPOSTION Q 2 HR. NEEDS ATTENDED AND ANTICIPATED, CALL LIGHT WITHIN TO REACH. SAFETY PRECAUTION MAINTAINED ALL THE TIME.
[2018-09-13] MEDS: PANTOPRAZOLE 40 MG TABLET.DR PO SCH (09:46)
[2018-09-13] MEDS: SERTRALINE HCL 25 MG TABLET PO SCH (09:46)
[2018-09-13] MEDS: MONTELUKAST SODIUM (10MG) 10 MG TABLET PO SCH (09:47)
[2018-09-13] MEDS: CHOLECALCIFEROL 1,000 UNIT TABLET (VIT D3) PO SCH (09:47)
[2018-09-13] MEDS: METOPROLOL SUCCINATE 25 MG TAB.SR.24H PO SCH (09:47)
[2018-09-13] MEDS: ALLOPURINOL 100 MG TABLET PO SCH (09:47)
[2018-09-13] MEDS: HYDROGEL DRESSING 90 GM TUBE TP SCH (09:48)
[2018-09-13] MEDS: DAKINS QUARTER STRENGTH (0.125%) 480 ML BOTTLE TOP SCH (09:48)
[2018-09-13] MEDS: Z GUARD REMEDY 2 OZ OINT TP SCH (09:48)
[2018-09-13] MEDS: FLUTICASONE/VILANTEROL 1 EACH BLST.W.DEV IH SCH ×2 (09:50→17:05)
[2018-09-13] MEDS: TRAMADOL HCL 50 MG TABLET PO PRN ×2 (11:56→17:45)
--- NOTE | 2018-09-13 11:56 | NUR ---
rn notes administered Ultram 50 ml po prn for left hip pain 03/05 per patient request v/s taken stable bp 122/60, p-88, continued monitoring.
--- NOTE | 2018-09-13 12:00 | NUR ---
RN NOTES PER MD REED CHANGED SURGERY FOR TUESDAY. PATIENT SISTER NAME PRATIMA SIGNED CONSENT FORM.
[2018-09-13] MEDS: ACETAMINOPHEN 325 MG TABLET PO PRN (13:29)
--- NOTE | 2018-09-13 13:40 | NUR ---
MS/RN NOTE PATIENT COMPLAINS OF BACK PAIN 12/03. TURN AND REPOSITIONING DONE. TYLENOL 650 MH PO GIVEN.
[2018-09-13 16:00] VITALS: BP 110/62
[2018-09-13] MEDS: LACTOBACILLUS RHAMNOSUS GG 1 EACH CAP.SPRINK PO SCH (17:04)
--- NOTE | 2018-09-13 17:45 | NUR ---
RN NOTES ADMINISTERED ULTRAM 50 MG PO PRN FOR GENERALIZED PAIN 76/10 PER PATIENT REQUEST, CONTINUED MONITORING.
--- NOTE | 2018-09-13 18:30 | NUR ---
RN NOTES PATIENT IN THE BED RESTING. MEDICATION WERE ADMINISTERED FOR PAIN EFFECTIVE, V/S STABLE, ASSIST TURN AND REPOSITION Q 2 HR. CALL LIGHT WITHIN TO REACH. ENDORSED ONCOMING NURSE FOR PLAN OF CARE.
--- NOTE | 2018-09-13 19:25 | NUR ---
RN NOTES RECEIVED PATIENT ASLEEP, HOB ELEVATED, ON ROOM AIR AND TOLERATED WELL. NO SIGNS OF DISTRESS AND DISCOMFORT NOTED. IV ACCESS ON LEFT FOREARM PATENT AND INTACT WITH ONGOING IVF INFUSING WELL. KEPT CLEAN AND DRY. WILL CONTINUE TO MONITOR PT.
[2018-09-13 20:00] VITALS: BP 91/64
[2018-09-13] MEDS: AZITHROMYCIN 500 MG in IV D5W 250 ML IV SCH (20:21)
[2018-09-13 22:00] VITALS: BP 91/64
[2018-09-13] MEDS: ATORVASTATIN 10 MG TABLET PO SCH (22:30)
[2018-09-14] MEDS: MEROPENEM 1 G in IV NS 0.9% 100 ML IV SCH ×2 (00:44→13:36)
[2018-09-14] MEDS: IV NS W/30MEQ KCL 1L IV PRN ×2 (06:10)
--- NOTE | 2018-09-14 07:07 | NUR ---
MS RN NOTES PATIENT IN BED EYES CLOSED, RESPOND TO VERBAL AND TACTILE STIMULI. VERBALLY RESPONSIVE. NO ACUTE DISTRESS NOTED. BREATHING UNLABORED. NO SOB NOTED. DENIED ANY PAIN. IV ACCESS PATENT AND INTACT, NO REDNESS OR SWELLING NOTED. SAFETY MEASURES IN PLACE. CALL LIGHT WITHIN REACH, WILL CONTINUE TO MONITOR ACCORDINGLY.
--- NOTE | 2018-09-14 07:21 | NUR ---
RN NOTES PATIENT SLEPT WELL OVERNIGHT, VITAL SIGNS STABLE, AFEBRILE. DENIES ANY PAIN AND DISCOMFORT. IV ACCESS ON LEFT FOREARM PATENT AND INTACT. WOUND CARE DONE. KEPT CLEAN AND DRY, TURNED AND REPOSITIONED PER PROTOCOL. FALL PRECAUTION OBSERVED. WILL CONTINUE TO MONITOR PT.
[2018-09-14 08:00] VITALS: BP 126/64
[2018-09-14] MEDS: ALLOPURINOL 100 MG TABLET PO SCH (08:32)
[2018-09-14] MEDS: PANTOPRAZOLE 40 MG TABLET.DR PO SCH (08:32)
[2018-09-14] MEDS: SERTRALINE HCL 25 MG TABLET PO SCH (08:32)
[2018-09-14] MEDS: LACTOBACILLUS RHAMNOSUS GG 1 EACH CAP.SPRINK PO SCH ×2 (08:33→17:04)
[2018-09-14] MEDS: MONTELUKAST SODIUM (10MG) 10 MG TABLET PO SCH (08:33)
[2018-09-14] MEDS: METOPROLOL SUCCINATE 25 MG TAB.SR.24H PO SCH (08:33)
[2018-09-14] MEDS: CHOLECALCIFEROL 1,000 UNIT TABLET (VIT D3) PO SCH (08:34)
[2018-09-14] MEDS: ENSURE ENLIVE CHOC 237 ML CAN PO SCH ×2 (08:34→17:04)
[2018-09-14] MEDS: FLUTICASONE/VILANTEROL 1 EACH BLST.W.DEV IH SCH ×2 (08:34→17:04)
[2018-09-14] MEDS: HYDROGEL DRESSING 90 GM TUBE TP SCH (08:35)
[2018-09-14] MEDS: DAKINS QUARTER STRENGTH (0.125%) 480 ML BOTTLE TOP SCH (08:36)
[2018-09-14] MEDS: Z GUARD REMEDY 2 OZ OINT TP SCH (08:36)
[2018-09-14 16:00] VITALS: BP 72/54
--- NOTE | 2018-09-14 19:00 | NUR ---
MS RN NOTES PATIENT IN BED ALERT ORIENTED X 1-2 . NO ACUTE DISTRESS NOTED. BREATHING UNLABORED. NO SOB NOTED. DENIED ANY PAIN. IV ACCESS PATENT AND INTACT, NO REDNESS OR SWELLING NOTED.DUE MEDICATIONS GIVEN, NO ASE NOTED. NEEDS ATTENDED AND ANTICIPATED. KEPT CLEAN DRY AND COMFORTABLE. SAFETY MEASURES IN PLACE. CALL LIGHT WITHIN REACH. ENDORSED TO NIGHT NURSE FOR CONTINUITY OF CARE.
--- NOTE | 2018-09-14 19:15 | NUR ---
RN NOTES RECEIVED PT AWAKE, ALERT, HOB ELEVATED, NO SIGNS OF DISTRESS NOTED. VERBALLY RESPONSIVE, CONFUSED AND REORIENTED. DENIES PAIN AND DISCOMFORT AT THIS TIME. IV ACCESS INTACT. KEPT CLEAN AND DRY. FALL PRECAUTION IN PLACE. WILL CONTINUE TO MONITOR PATIENT.
[2018-09-14 20:00] VITALS: BP 133/87
[2018-09-14] MEDS: ATORVASTATIN 10 MG TABLET PO SCH (21:00)
[2018-09-14] MEDS: AZITHROMYCIN 250 MG TABLET PO SCH (21:00)
[2018-09-14 22:00] VITALS: BP 133/87
--- NOTE | 2018-09-15 06:26 | NUR ---
RN NOTES PATIENT SLEPT ON AND 0FF OVERNIGHT, VITAL SIGNS STABLE, AFEBRILE. PT IS CONFUSE, REORIENT AT TIMES. DENIES PAIN. KEPT PATIENT ON NPO FOR TODAY'S PROCEDURE. KEPT CLEAN AND DRY. FALL PRECAUTION OBSERVED. WILL CONTINUE TO MONITOR.
[2018-09-15] MEDS ORDERED: ANESTHESIA TRAY IN PYXIS 1 EA TRAY MC ONE (07:25)
[2018-09-15] MEDS ORDERED: BACITRACIN 50000 UNITS/VIAL ONE (07:25)
[2018-09-15] MEDS: PANTOPRAZOLE 40 MG TABLET.DR PO SCH (07:30)
--- NOTE | 2018-09-15 07:38 | NUR ---
MS/RN NOTES PATIENT WENT FOR LEFT HIP WOUND WASH AT THIS TIME. REPORT RECEIVED FROM PROP AND EFFECTS DESIGNER RN FOR ANY KASIA.
[2018-09-15] MEDS ORDERED: HYDROMORPHONE INJ 2 MG/ML DISP.SYRIN ONE (07:39)
--- NOTE | 2018-09-15 07:50 | NUR ---
MS/RN RECEIVED CALL FROM PABLO MOHAN FROM SURGERY AND PER PABLO TO ORDER STAT TYPE AND SCREEN PER DR GRIER. CALLED LAB SPOKE WITH ADRY FROM LAB AND MADE AWARE PATIENT IS IN SURGERY/HOLDING AREA.
[2018-09-15] MEDS: ENSURE ENLIVE CHOC 237 ML CAN PO SCH ×2 (08:00→17:00)
[2018-09-15] MEDS ORDERED: VANCOMYCIN 1 GM VIAL ONE (08:37)
[2018-09-15] MEDS: ALLOPURINOL 100 MG TABLET PO SCH (09:00)
[2018-09-15] MEDS: SERTRALINE HCL 25 MG TABLET PO SCH (09:00)
[2018-09-15] MEDS: CHOLECALCIFEROL 1,000 UNIT TABLET (VIT D3) PO SCH (09:00)
[2018-09-15] MEDS: METOPROLOL SUCCINATE 25 MG TAB.SR.24H PO SCH (09:00)
[2018-09-15] MEDS: LACTOBACILLUS RHAMNOSUS GG 1 EACH CAP.SPRINK PO SCH ×2 (09:00→17:41)
[2018-09-15] MEDS: MONTELUKAST SODIUM (10MG) 10 MG TABLET PO SCH (09:00)
[2018-09-15] MEDS: FLUTICASONE/VILANTEROL 1 EACH BLST.W.DEV IH SCH ×2 (09:00→17:00)
--- NOTE | 2018-09-15 10:34 | NUR ---
MS/RN PATIENT RETURNED FROM SURGERY S/P LEFT HIP HARDWARE REMOVAL. TOLERATED WELL. NOTED WITH WOUND VAC IN PLACE SETTINGS AT 125MMHG. NOTED WITH SEROSANGUINOUS FLUID. RECEIVED ORDER PER DR GRIER, PT WBAT, D/C MARTINA IN AM, ID CONSULT WITH DR SWANSON FOR IV ATB. ALL NEEDS ATTENDED TO. C ALL LIGHT WITHIN REACH. WILL CONTINUE TO MONITOR TO ENSURE SAFETY.
[2018-09-15] MEDS: Z GUARD REMEDY 2 OZ OINT TP SCH (11:00)
[2018-09-15] MEDS: predniSONE 10 MG TABLET PO SCH (11:00)
[2018-09-15] MEDS: HYDROGEL DRESSING 90 GM TUBE TP SCH (11:00)
[2018-09-15] MEDS: DAKINS QUARTER STRENGTH (0.125%) 480 ML BOTTLE TOP SCH (11:01)
--- NOTE | 2018-09-15 15:30 | NUR ---
MS/RN SPOKE WITH DR GRIER AND MADE AWARE PATIENT LEFT LOWER LEG CALF SITE NOTED WITH HARD LUMP. PER DR GRIER, XRAY OF LEFT LOWER LEG.
[2018-09-15 16:00] VITALS: BP 92/68
[2018-09-15] MEDS ORDERED: MEROPENEM 500 MG in IV NS 0.9% 50 ML IV SCH (17:30)
[2018-09-15 17:32] VITALS: BP 92/62
[2018-09-15] MEDS: TRAMADOL HCL 50 MG TABLET PO PRN (17:41)
[2018-09-15] MEDS: MEROPENEM 1 G in IV NS 0.9% 100 ML IV SCH (18:28)
--- NOTE | 2018-09-15 18:57 | NUR ---
MS/RN CLOSING NOTE PATIENT IN BED IN STABLE CONDITION. A/O X 1 WITH EPISODES OF CONFUSION AND FORGETFULNESS. NO SIGNS OF ACUTE DISTRESS. COMPLAIN OF PAIN TO SACRUM WOUND RATED 7/10, PRN TRAMADOL 50MG ADMINISTERED. TOLERATING WELL. LEFT FA 22 G IV SITE FLUSHES WELL. LEFT HIP WOUND VAC INTACT AND SUCTIONING WELL SEROSANGINOUS FLUID. F/C IN PLACE AND DRAINING YELLOW CLEAR URINE. ALL NEEDS ATTENDED TO. CALL LIGHT WITHIN REACH. WILL ENDORSE TO NEXT SHIFT FOR CONTINUITY OF CARE.
--- NOTE | 2018-09-15 19:30 | NUR ---
MS RN NOTES RECEIVED ON BED A/O X1,WITH EPISODE OF CONFUSION,ORIENTED TO NAME.WITH SALINE LOCK LFA #18,LFA#22.S/P REMOVAL OF HARDWARE ON LEFT HIP WITH WOUND VAC APPLICATION AT 125MMHG,DRAINS SEROSANGUINOUS OUTPUT.NOTED MULTIPLE SKIN BRUISING/DISCOLORATION ALL OVER HER BODY.ISOLATION PRECAUTION FOR ESBL URINE.WITH MACK CATH IN PLACE DRAINING YELLOWISH OUTPUT.CALL LIGHT IN REACH,NEEDS ANTICIPATED.
[2018-09-15 20:00] VITALS: BP 99/58
[2018-09-15] MEDS ORDERED: VANCOMYCIN 1 GM in IV D5W 250 ML IV ONE (20:00)
--- NOTE | 2018-09-15 20:10 | NUR ---
MS RN NOTES STARTED ON VANCOMYCIN 1GM IV ORDERED,INFUSING VIA IV PUMP ON LEFT FOREARM SALINE LOCK.
[2018-09-15] MEDS ORDERED: FEE PK DOSING 1 MIN EA MC ONE (20:39)
[2018-09-15] MEDS: ATORVASTATIN 10 MG TABLET PO SCH (21:22)
[2018-09-15] MEDS: AZITHROMYCIN 250 MG TABLET PO SCH (21:22)
[2018-09-16] MEDS: TRAMADOL HCL 50 MG TABLET PO PRN ×2 (04:53→14:38)
--- NOTE | 2018-09-16 04:53 | NUR ---
MS RN NOTES PAIN MANAGEMENT C/O LEFT HIP PAIN 6/10 ON PAIN SCALE,MEDICATED WITH ULTRAM 50MG PO WITH APPLE SAUCE,TAKEN WELL.
[2018-09-16] MEDS: MEROPENEM 1 G in IV NS 0.9% 100 ML IV SCH ×2 (05:22→17:09)
--- NOTE | 2018-09-16 06:04 | NUR ---
MS RN NOTES SLEPT WITH INTERVALS,DENIES PAIN DISCOMFORTS.REPOSITION PER PROTOCOL.IV ABX TOLERATED WELL.IN NO ACUTE DISTRESS.WOUND VAC DRAINS WELL.IN NO ACUTE DISTRESS.WILL ENDORSE TO DAY NURSE FOR CONTINUITY OF CARE.
[2018-09-16 06:19] LABS: BASOPHILS % (AUTO) 0.2 % (0.0-2.0); EOSINOPHILS % (AUTO) 0.5 % (0.0-6.0); HEMATOCRIT 27 % (33-45); HEMOGLOBIN 8.8 g/dL (11.5-14.8); LYMPHOCYTES # (AUTO) 1.2 /CMM (0.8-4.8); LYMPHOCYTES % (AUTO) 16.5 % (20.0-44.0); MEAN CORPUSCULAR HGB CONC 33 g/dl (31.0-36.0); MEAN CORPUSCULAR VOLUME 97 fL (82-100); MONOCYTES # (AUTO) 0.2 /CMM (0.1-1.30); MONOCYTES % (AUTO) 3.4 % (2.0-12.0); NEUTROPHILS # (AUTO) 5.6 /CMM (1.8-8.9); NEUTROPHILS % (AUTO) 79.4 % (43.0-81.0); PLATELET COUNT (AUTO) 238 /CMM (150-450); RED BLOOD CELL COUNT(AUTO) 2.74 MIL/uL (4.0-5.2); WHITE BLOOD COUNT (AUTO) 7.1 K/uL (4.3-11.0)
[2018-09-16 06:34] LABS: B-TYPE NATRIURETIC PEPTIDE 12820 PG/ML (0-125); CALCIUM, SERUM 8.7 mg/dL (8.5-10.1); CARBON DIOXIDE 30 mmol/L (21-32); CHLORIDE 101 mmol/L (98-107); CREATININE 1.2 mg/dL (0.6-1.3); GLUCOSE 103 mg/dL (74-106); POTASSIUM 4.9 mmol/L (3.5-5.1); SODIUM SERUM 136 mmol/L (136-145); UREA NITROGEN, BLOOD 20 mg/dL (7-18)
--- NOTE | 2018-09-16 06:39 | NUR ---
MS RN NOTES MACK CATH DISCONTINUE ORDERED,WITH 500ML OUTPUT.
--- NOTE | 2018-09-16 07:54 | NUR ---
MS RN NOTES RECEIVED PATIENT ON BED ALERT ORIENTED X1, CALM AND RESTING COMFORTABLY.WITH EPISODE OF CONFUSION,ORIENTED TO NAME. NO SIGNS OF ACUTE RESPIRATORY DISTRESS NOTED. ASPIRATION PRECAUTION OBSERVED, SAFETY MEASURES OBSERVED, BED IN LOW LOCKED POSITION, WITH SALINE LOCK LFA #18,LFA#22.S/P REMOVAL OF HARDWARE ON LEFT HIP WITH WOUND VAC APPLICATION AT 125MMHG,DRAINS SEROSANGUINOUS OUTPUT.NOTED MULTIPLE SKIN BRUISING/DISCOLORATION ALL OVER HER BODY.ISOLATION PRECAUTION FOR ESBL URINE. WILL CONTINUE TO MONITOR PATIENT ACCORDINGLY.
[2018-09-16 08:00] VITALS: BP 103/76
[2018-09-16] MEDS: PANTOPRAZOLE 40 MG TABLET.DR PO SCH (08:12)
[2018-09-16] MEDS: ENSURE ENLIVE CHOC 237 ML CAN PO SCH (08:13)
[2018-09-16] MEDS: SERTRALINE HCL 25 MG TABLET PO SCH (08:36)
[2018-09-16] MEDS: predniSONE 10 MG TABLET PO SCH (08:37)
[2018-09-16] MEDS: ALLOPURINOL 100 MG TABLET PO SCH (08:37)
[2018-09-16] MEDS: CHOLECALCIFEROL 1,000 UNIT TABLET (VIT D3) PO SCH (08:37)
[2018-09-16] MEDS: LACTOBACILLUS RHAMNOSUS GG 1 EACH CAP.SPRINK PO SCH ×2 (08:37→17:06)
[2018-09-16] MEDS: MONTELUKAST SODIUM (10MG) 10 MG TABLET PO SCH (08:59)
[2018-09-16] MEDS: METOPROLOL SUCCINATE 25 MG TAB.SR.24H PO SCH (09:00)
[2018-09-16] MEDS: HYDROGEL DRESSING 90 GM TUBE TP SCH (09:42)
[2018-09-16] MEDS: Z GUARD REMEDY 2 OZ OINT TP SCH (09:42)
[2018-09-16] MEDS: DAKINS QUARTER STRENGTH (0.125%) 480 ML BOTTLE TOP SCH (09:43)
[2018-09-16] MEDS: FLUTICASONE/VILANTEROL 1 EACH BLST.W.DEV IH SCH ×2 (09:43→17:06)
--- NOTE | 2018-09-16 14:39 | NUR ---
RN NOTES/PAIN MANAGEMENT PATIENT C/O PAIN ON HER SACRAL WOUND WITH SCALE OF 6/10, PRN TRAMADOL 50MG PO GIVEN AT 1438. WILL CONTINUE TO MONITOR AND REASSESS.
[2018-09-16 16:00] VITALS: BP 116/68
[2018-09-16] MEDS: ENSURE ENLIVE 237 ML LIQUID (VANILLA) PO SCH (17:26)
--- NOTE | 2018-09-16 18:39 | NUR ---
MS RN CLOSING NOTE PATIENT IN BED IN STABLE CONDITION. A/O X 1 WITH EPISODES OF CONFUSION AND FORGETFULNESS. NO SIGNS OF ACUTE DISTRESS. ON O2 AT 2LPM VIA NC TOLERATING WELL SATING 96% - 98%ABLE COMPLAIN OF PAIN TO SACRUM WOUND RATED 7/10, PRN TRAMADOL 50MG ADMINISTERED. TOLERATING WELL. RIGHT FA 22 G IV SITE FLUSHES WELL. LEFT HIP WOUND VAC INTACT AND SUCTIONING WELL SEROSANGINOUS FLUID. ALL NEEDS ATTENDED AND MET. ABLE TO CONSUME FOOD TRAY SERVED. CALL LIGHT WITHIN REACH. WILL ENDORSE TO AEROSPACE TECHNICIAN NURSE FOR CONTINUITY OF CARE.
--- NOTE | 2018-09-16 19:30 | NUR ---
MS/RN RECEIVE PATIENT APPEAR SLEEPING, APPEAR COMFORTABLE, NO SIGNS OF DISTRESS NOTED, WOUND VAC WORKING WELL, CALL LIGHT IN REACH. WILL MONITOR.
[2018-09-16 20:00] VITALS: BP 114/63
[2018-09-16] MEDS ORDERED: VANCOMYCIN 500 MG in IV D5W 100 ML IV SCH (21:00)
[2018-09-16] MEDS: ATORVASTATIN 10 MG TABLET PO SCH (22:53)
[2018-09-16] MEDS: AZITHROMYCIN 250 MG TABLET PO SCH (23:00)
--- NOTE | 2018-09-16 23:00 | NUR ---
MS/RN PATIENT IS AWAKE AT THIS TIME, DUE MEDS WERE GIVEN. TOLERATED.
[2018-09-16] MEDS ORDERED: VANCOMYCIN 500 MG VIAL ONE (23:06)
--- NOTE | 2018-09-17 01:19 | NUR ---
MS/RN PATIENT IS SLEEPING AT THIS TIME, APPEAR COMFORTABLE, NO DISTRESS NOTED, CALL LIGHT IN REACH. WILL CONTINUE TO MONITOR.
[2018-09-17] MEDS ORDERED: MEROPENEM 1 G VIAL IV ONE (06:32)
[2018-09-17] MEDS: MEROPENEM 1 G in IV NS 0.9% 100 ML IV SCH ×2 (06:35→17:37)
--- NOTE | 2018-09-17 06:40 | NUR ---
MS/RN MERREM WAS STOPPED DUE TO PATIENT'S C/O PAIN AT IV SITE. PATIENT REFUSED IV INSERTION AT THIS TIME. ENDORSED TO NEXT RN.
[2018-09-17] MEDS: TRAMADOL HCL 50 MG TABLET PO PRN (07:07)
--- NOTE | 2018-09-17 07:22 | NUR ---
MS/RN PATIENT IS AWAKE, ALERT, COMFORTABLE, NO DISTRESS NOTED, ALL NEEDS ATTENDED AT THIS TIME, ENDORSED TO NEXT RN FOR CONTINUITY OF CARE.
[2018-09-17 08:00] VITALS: BP 96/62
[2018-09-17] MEDS: MONTELUKAST SODIUM (10MG) 10 MG TABLET PO SCH (08:15)
[2018-09-17] MEDS: ALLOPURINOL 100 MG TABLET PO SCH (08:15)
[2018-09-17] MEDS: PANTOPRAZOLE 40 MG TABLET.DR PO SCH (08:16)
[2018-09-17] MEDS: SERTRALINE HCL 25 MG TABLET PO SCH (08:16)
[2018-09-17] MEDS: CHOLECALCIFEROL 1,000 UNIT TABLET (VIT D3) PO SCH (08:16)
[2018-09-17] MEDS: LACTOBACILLUS RHAMNOSUS GG 1 EACH CAP.SPRINK PO SCH ×2 (08:16→16:30)
[2018-09-17] MEDS: predniSONE 10 MG TABLET PO SCH (08:16)
[2018-09-17] MEDS: METOPROLOL SUCCINATE 25 MG TAB.SR.24H PO SCH (08:17)
--- NOTE | 2018-09-17 08:20 | NUR ---
MS RN INITIAL NOTES Patient is awake, sitting up in bed, had breakfast with fair appetite. On low flow oxygen at 2L via NC, non productive cough, denies SOB. Repositioned in bed, left hip surgical incision with wound vac in place with 125mmHg continuous suction, sanguinous fluid output. Maintained safety, contact isolation, PPE utilized.
[2018-09-17] MEDS: ENSURE ENLIVE 237 ML LIQUID (VANILLA) PO SCH ×2 (09:36→16:30)
[2018-09-17] MEDS: FLUTICASONE/VILANTEROL 1 EACH BLST.W.DEV IH SCH ×2 (09:38→16:42)
[2018-09-17] MEDS: Z GUARD REMEDY 2 OZ OINT TP SCH (09:39)
[2018-09-17] MEDS: DAKINS QUARTER STRENGTH (0.125%) 480 ML BOTTLE TOP SCH (09:39)
[2018-09-17] MEDS: HYDROGEL DRESSING 90 GM TUBE TP SCH (09:39)
[2018-09-17] MEDS: VANCOMYCIN 500 MG in IV D5W 100 ML IV SCH (15:19)
[2018-09-17 16:00] VITALS: BP 98/70
--- NOTE | 2018-09-17 18:39 | NUR ---
MS RN CLOSING NOTES Patient is awake, sitting up in bed, had dinner with fair appetite. On low flow oxygen at 2L/min via NC, oxygen sat 92%. Left hip wound, dressing intact, wound vac in place with 125mmHg continuous suction, minimal sanguineous drainage output, denies pain. Continued IV antibiotic per ID. Maintained contact isolation , PPE utilized. Will endorse to oncoming RN.
--- NOTE | 2018-09-17 19:15 | NUR ---
MS RN OPENING NOTES Received patient A/O X1 on semi Charles's position on bed. On O2 @ 2LPM, saturating well, no SOB/respiratory distress noted. With patent peripheral IV line G#22, SL. with L hip wound vac @ 125mmHg continuous suction, with serosanguineous output @ 150ml level. Kept clean, dry and comfortable. Bed in lowest position and locked, siderails up x2. Call light at bedside. Kept room light dim conducive for sleep. Will continue to monitor accordingly.
[2018-09-17 20:00] VITALS: BP 101/60
[2018-09-17] MEDS: ATORVASTATIN 10 MG TABLET PO SCH (21:49)
[2018-09-18] MEDS: TRAMADOL HCL 50 MG TABLET PO PRN ×2 (00:50→12:34)
[2018-09-18] MEDS: MEROPENEM 1 G in IV NS 0.9% 100 ML IV SCH (05:21)
--- NOTE | 2018-09-18 06:46 | NUR ---
MS RN CLOSING NOTES Patient asleep on bed on semi-Charles's position. On O2 @ 3LPM as ordered, saturating well. With wound vac on L hip, with continuous suction 125mmHg, with scanty serosangeous drainage noted, with 50 cc level output within the shift. Patient noted with episodes of confusions, awaken verbalizing wanting to go home but managed with reorientation and assuring her safety. No new unusualities noted. Endorsed to the next shift.
[2018-09-18 08:00] VITALS: BP 100/65
[2018-09-18] MEDS: PANTOPRAZOLE 40 MG TABLET.DR PO SCH (08:03)
[2018-09-18] MEDS: ENSURE ENLIVE 237 ML LIQUID (VANILLA) PO SCH (08:04)
[2018-09-18] MEDS: CHOLECALCIFEROL 1,000 UNIT TABLET (VIT D3) PO SCH (08:21)
[2018-09-18 08:22] VITALS: BP 100/65
[2018-09-18] MEDS: LACTOBACILLUS RHAMNOSUS GG 1 EACH CAP.SPRINK PO SCH (08:22)
[2018-09-18] MEDS: predniSONE 10 MG TABLET PO SCH (08:22)
[2018-09-18] MEDS: ALLOPURINOL 100 MG TABLET PO SCH (08:22)
[2018-09-18] MEDS: SERTRALINE HCL 25 MG TABLET PO SCH (08:22)
[2018-09-18] MEDS: METOPROLOL SUCCINATE 25 MG TAB.SR.24H PO SCH (08:22)
[2018-09-18] MEDS: MONTELUKAST SODIUM (10MG) 10 MG TABLET PO SCH (08:23)
[2018-09-18] MEDS: FLUTICASONE/VILANTEROL 1 EACH BLST.W.DEV IH SCH (08:28)
--- NOTE | 2018-09-18 08:30 | NUR ---
MS RN INITIAL NOTES Patient is awake, A/O x1 with confusion, forgetful at baseline. Had breakfast with fair appetite. On low flow oxygen at 2L via NC, non productive cough, denies SOB. Repositioned in bed, left hip wound dressing intact, wound vac in place with 125mmHg continuous suction, minimal output. Maintained safety, contact isolation, PPE utilized.
[2018-09-18] MEDS: DAKINS QUARTER STRENGTH (0.125%) 480 ML BOTTLE TOP SCH (08:56)
[2018-09-18] MEDS: HYDROGEL DRESSING 90 GM TUBE TP SCH (08:57)
[2018-09-18] MEDS: Z GUARD REMEDY 2 OZ OINT TP SCH (08:57)
[2018-09-18] MEDS: VANCOMYCIN 500 MG in IV D5W 100 ML IV SCH (08:58)
[2018-09-18 09:35] LABS: CALCIUM, SERUM 9.1 mg/dL (8.5-10.1); CARBON DIOXIDE 27 mmol/L (21-32); CHLORIDE 101 mmol/L (98-107); CREATININE 1.1 mg/dL (0.6-1.3); GLUCOSE 92 mg/dL (74-106); POTASSIUM 4.1 mmol/L (3.5-5.1); SODIUM SERUM 136 mmol/L (136-145); UREA NITROGEN, BLOOD 17 mg/dL (7-18)
--- NOTE | 2018-09-18 12:05 | NUR ---
BAR HOSTESS BAR HOSTESS SPOKE WITH SURGEON DR GRIER, ORDERS RECEIVED. DISCUSSED WITH CASE MANAGEMENT, PATIENT TO HAVE NEGATIVE PRESSURE WOUND THERAPY TO RESUME ONCE AT THE SNF. PATIENT TO HAVE FOLLOW UP APPOINTMENT IN [address] GRIER. ALL DISCUSSED WITH PRIMARY RN.
--- NOTE | 2018-09-18 15:03 | NUR ---
MS RN DISCHARGED Patient has been cleared for discharge back to SNF. VSS, left hip wound vac disconnected and wound vac dressing removed. Apply new dressing to left hip. IVC in LFA removed, gauze applied. Patient is seen by PT today, WBAT LLE. Patient had bowel movement today. Patient is confused, A/O x1. Called [facility], spoke with Ina/RN for report. Patient left hosp in stable condition via ambulance, belongings check and send with the patient upon discharge.
== END 2018-09-18 14:55 | DRG 856 ==
LOC: ER 21:26 → TELE 23:22 → MED 09-11 11:30 → UNDODISIN 09-16 16:05
PROVIDERS: ADMIT Emergency Medicine Hospice and Palliative Medicine; ATTEND Internal Medicine
PROC: 0KBP0ZZ Excision of Left Hip Muscle, Open Approach (ICD-10-PCS; principal; 2018-09-11)
PROC: 0KBN0ZZ Excision of Right Hip Muscle, Open Approach (ICD-10-PCS; 2018-09-11)
PROC: 0S9B00Z Drainage of Left Hip Joint with Drainage Device, Open Approach (ICD-10-PCS; 2018-09-15)
DX: T81.42XA Infection following a procedure, deep incisional surgical site, initial encounter (principal); L89.154 Pressure ulcer of sacral region, stage 4; I21.A1 Myocardial infarction type 2; G93.40 Encephalopathy, unspecified; N18.4 Chronic kidney disease, stage 4 (severe); I25.10 Atherosclerotic heart disease of native coronary artery without angina pectoris; J44.9 Chronic obstructive pulmonary disease, unspecified; K21.9 Gastro-esophageal reflux disease without esophagitis; D63.8 Anemia in other chronic diseases classified elsewhere; I35.0 Nonrheumatic aortic (valve) stenosis; F03.90 Unspecified dementia, unspecified severity, without behavioral disturbance, psychotic disturbance, mood disturbance, and anxiety; F41.9 Anxiety disorder, unspecified; I12.9 Hypertensive chronic kidney disease with stage 1 through stage 4 chronic kidney disease, or unspecified chronic kidney disease; F20.9 Schizophrenia, unspecified; E78.5 Hyperlipidemia, unspecified; S72.92XG Unspecified fracture of left femur, subsequent encounter for closed fracture with delayed healing; Z87.891 Personal history of nicotine dependence; Z96.642 Presence of left artificial hip joint; T38.0X5A Adverse effect of glucocorticoids and synthetic analogues, initial encounter; Z79.52 Long term (current) use of systemic steroids; J40 Bronchitis, not specified as acute or chronic; Y83.9 Surgical procedure, unspecified as the cause of abnormal reaction of the patient, or of later complication, without mention of misadventure at the time of the procedure; Y92.129 Unspecified place in nursing home as the place of occurrence of the external cause
CPT/HCPCS: 36415; 71045-TC; 72170-TC; 73552; 73590-TC; 80048-TC; 80053-TC; 80076-TC; 80202-TC; 81000-TC; 82565-TC; 82728-TC; 83540-TC; 83605-TC; 83735-TC; 83880; 84100-TC; 84484-TC; 85025-TC; 85652-TC; 85730-TC; 86140-TC; 86850-TC; 87040-TC; 87070-TC; 87081-TC; 87086-TC; 87186-TC; 97110-TC; 97112-TC; 97116-TC; 97530-TC; A4216; A6209; A6248; A6253; A6402; A6403; G0378; J0456; J0690; J0692; J0696; J1170; J2185; J2704; J3370; J3475; J3480; J3490; J7030; J7042; J7060